=== PATIENT | female | born 1965 | race Caucasian/White ===

== ENCOUNTER 2020-01-13 09:17 | Outpatient (REF) | payer OTHER, SELFPAY ==
--- NOTE | 2020-01-13 08:40 | PAPFT_PTH ---
PATIENT: Jaymie Decker LOC: [facility] U#:[id number] AGE/SX: 54/F ROOM: RE01/13/[address]: Constance Knox NP : 1965 BED: DIS: 01/13/2020 SPEC #: [id number] RECD: 01/13/20 18:28 STATUS: ÁLVAROTania REQ #: [id number] JAMAL: 01/13/20 08:[address]: Constance Knox NP DEPT: [facility] Cytology RECD BY: Judy Lyn ENTERED: 01/13/20 18:28 SP TYPE: PAPFT OT DR: Unknown,Unknown Tissues: 1 - CX/ENDOCX FOR PAP SMEARS Procedures: PAP THIN PREP/UVM Screening HPV DNA PROBE Comments: [id number]
== END 2020-01-13 09:37 ==
LOC: LBN 09:17
PROVIDERS: Visit Provider Nurse Practitioner Women's Health
DX: Z12.4 Encounter for screening for malignant neoplasm of cervix (principal); Z11.51 Encounter for screening for human papillomavirus (HPV)
CPT/HCPCS: 88142; 87624

== ENCOUNTER 2020-01-29 13:10 | Outpatient (REF) | payer OTHER, SELFPAY ==
[2020-01-29 19:32] LABS: Abs Immature Grans 0.02 10^3/uL (0.0-0.06); Absolute Basophil Count 0.03 10^3/uL (0.0-0.2); Absolute Eosinophil Count 0.04 10^3/uL (0.0-0.7); Absolute Lymphocyte Count 1.62 10^3/uL (1.2-3.4); Absolute Monocyte Count 0.64 10^3/uL (0.1-0.8); Absolute Neutrophil Count 5.62 10^3/uL (1.2-6.7); Basophils % 0.4; Eosinophils % 0.5; HCT 48.4 % (36.0-46.0); Immature Grans % 0.3; Lymphocytes % 20.3; MCH 32.8 pg (27.0-33.0); MCHC 33.1 % (32.0-36.0); MCV 99.2 fL (80-95); MPV 10.4 fL (8.0-11.0); Neutrophils % 70.5; Nucleated RBC 0 %; Platelet Count 334 10^3/uL (130-400); RBC 4.88 10^6/uL (3.93-5.22); RDW 12.1 % (11.7-14.6); RDW-SD 44.4 fL; WBC 7.97 10^3/uL (4.4-10.8)
[2020-01-29 19:59] LABS: ALT 47 U/L (14-59); AST 38 U/L (15-37); Albumin 3.8 g/dL (3.4-5.0); Alkaline Phosphatase 78 U/L (46-116); Anion Gap 6.2 mmol/L (3-11); BUN 8 mg/dL (7-18); Bilirubin, Total 0.8 mg/dL (0.2-1.0); CO2 29.8 mmol/L (21.0-32.0); CREATININE 0.72 mg/dL (0.55-1.02); Calcium 9.2 mg/dL (8.5-10.1); Calculated LDL 204 mg/dL (<100); Chloride 104 mmol/L (98-107); Cholesterol 271 mg/dL (<200); Glucose 118 mg/dL (74-106); HDL Cholesterol 41 mg/dL (40-60); Potassium 4.3 mmol/L (3.5-5.1); Sodium 140 mmol/L (136-145); TSH (W/Ref FT4) 1.79 uIU/mL (0.36-3.74); Total Protein 7.3 g/dL (6.4-8.2); Triglyceride 132 mg/dL (<150)
== END 2020-01-29 13:30 ==
LOC: NCHCN 13:10
PROVIDERS: PCP Nurse Practitioner; Visit Provider Nurse Practitioner
DX: R63.4 Abnormal weight loss (principal); R11.0 Nausea; K59.09 Other constipation; Z13.89 Encounter for screening for other disorder
CPT/HCPCS: 80053; 80061; 84443; 85025

== ENCOUNTER 2020-01-30 00:34 | Outpatient (CLI) | payer OTHER, SELFPAY ==
--- NOTE | 2020-01-30 13:02 | DI.MAMMO_ITS ---
EXAM: MG MAMMO SCREENING CLINICAL HISTORY: screening TECHNIQUE: Bilateral full field digital CC and MLO mammographic images were obtained with 3D tomosyn thesis and utilizing computer aided detection (CAD). COMPARISON: None. FINDINGS: Masses/Architectural Distortion: None seen. Microcalcifications: No suspicious pleomorphic-type are seen. Skin Thickening/Nipple Retraction: None. IMPRESSION: 1. No significant interval change with no specific features of malignancy noted. 2. Unless there is more urgent need, screening mammography is recommended, as per [employer] guidelines. BI-RADS Category 1 - Negative Breast Density - Category C - Heterogeneously dense The mammogram demonstrates the patient's breast tissue is dense. Dense breast tissue is very common a nd is not abnormal but dense breast tissue can make it harder to find cancer on a mammogram. Also, de nse breast tissue may increase their breast cancer risk. This information about the result of the [facility] mogram report was provided to the patient to raise their awareness. Use this report when you speak wi th the patient about their risks for breast cancer, which includes their family history. At that time , you may recommend for more screening tests (Ultrasound or MRI) as they might be useful based on the ir risk. A negative radiographic report should not delay biopsy if a dominant or clinically suspicious mass is present. Up to ten percent of cancers are not identified on mammography. A negative report may reinforce clinical impression. Adenosis and dense breasts may obscure an underlying neoplasm. False positive reports average 6 to 10%. Patient will receive a letter notifying them of these results.
== END 2020-01-30 00:54 ==
PROVIDERS: PCP Nurse Practitioner; Visit Provider Nurse Practitioner Women's Health
DX: Z12.31 Encounter for screening mammogram for malignant neoplasm of breast (principal)
CPT/HCPCS: 77063; 77067

== ENCOUNTER 2020-02-07 09:48 | Emergency (ER) | payer OTHER, SELFPAY ==
[2020-02-07 09:57] VITALS: BP 109/83; PULSE 89; RESP 14; TEMP 36.5; O2SAT 99
[2020-02-07] MEDS: Ondansetron 4 MG/2 ML VIAL IVP (10:13)
[2020-02-07] MEDS: Normal Saline 1,000 ML 1000 ML IV (10:14)
[2020-02-07 10:24] LABS: Abs Immature Grans 0.01 10^3/uL (0.0-0.06); Absolute Basophil Count 0.03 10^3/uL (0.0-0.2); Absolute Eosinophil Count 0.04 10^3/uL (0.0-0.7); Absolute Lymphocyte Count 2.12 10^3/uL (1.2-3.4); Absolute Monocyte Count 0.61 10^3/uL (0.1-0.8); Absolute Neutrophil Count 5.92 10^3/uL (1.2-6.7); Basophils % 0.3; Eosinophils % 0.5; HGB 17.3 g/dL (11.2-15.7); Immature Grans % 0.1; Lymphocytes % 24.3; MCH 33.5 pg (27.0-33.0); MCHC 33.9 % (32.0-36.0); MCV 98.6 fL (80-95); MPV 9.7 fL (8.0-11.0); Neutrophils % 67.8; Nucleated RBC 0 %; Platelet Count 274 10^3/uL (130-400); RBC 5.17 10^6/uL (3.93-5.22); RDW 12.2 % (11.7-14.6); WBC 8.73 10^3/uL (4.4-10.8)
--- NOTE | 2020-02-07 10:29 | ED.GENADUL_ITS ---
Discharge Plan Disposition Patient Disposition: HOME Condition: Stable Discharge Details Clinical Impression: Nausea, Difficulty swallowing Primary Care Provider: Yennifer Wang ED Provider: Davion Knox Home Meds and New Rx's Prescriptions: New ondansetron 4 mg tablet,disintegrating 4 mg PO Q8H PRN (Reason: nausea and vomiting) Qty: 30 RF: 0 Continued rosuvastatin 20 mg tablet 20 mg PO HS RF: 0 Discharge Instructions Instructions: Acute Nausea and Vomiting (ED) Additional Instructions: you should receive a call for an appointment with general surgery if you have worsening pain, feel more ill or persistent vomit return to the emergency department Medical Decision Making 55 yo female with hx of hld and has had years of nausea and not able to swallow food fully comes in with continued symptoms. Denies any chest pain and no abdominal pain now, states every so often will get some cramps. Her abdomen is soft and nontender and has no distention and speaking in full sentences. I suspect she could have celiacs vs achalasia, no findings to suggest emergent s urgical process, will give IVF and check for electrolyte abnormalities and monitor. labs show mild hypokalemia otherwise unremarkable and she remains stable. She is seeing GI but can't see them until April and I feel she may benefit from an endoscopy given her chronic symptoms, will refer her to general surgery for evaluation for possible endoscopy as soon as possible. Will d/c home and return precautions given Differential Diagnosis Differential Diagnosis: achalasia, celiac, crohns Lab Data Lab results reviewed: Yes I reviewed the patient's lab results. HPI General Mode of arrival: ambulatory . Date/Time Provider Initiated Documentation: 02/07/20 09:50 . Limitations to Documentation: no limitations . Information obtained by: patient . History of Present Illness 55 year old F presents to the emergency department with the chief complaint of nausea, described as moderate, No relieving factors improve symptom(s), No exacerbating factors reported . Patient did receive the following treatments prior to arrival, none Related Data Home Medications Medication Instructions Recorded Confirmed ondansetron 4 mg PO Q8H PRN #30 tab 02/07/20 rosuvastatin 20 mg PO HS 02/07/20 02/07/20 Previous Rx's Medication Instructions Recorded ondansetron 4 mg PO Q8H PRN #30 tab 02/07/20 Allergies Allergy/AdvReac Type Severity Reaction Status Date / Time No Known Allergies Allergy Verified 02/07/20 10:03 General Stated Complaint: Abd Prob TWIN: 3 Review of Systems All systems reviewed & are unremarkable except as noted in HPI and below Constitutional Constitutional: Denies chills, Denies fever(s) and Denies weakness Cardiovascular Cardiovascular: Denies chest pain and Denies dyspnea Respiratory Respiratory: Denies cough and Denies dyspnea Musculoskeletal Musculoskeletal: Denies joint swelling Neurologic Neurologic: Denies weakness Psychiatric Psychiatric: Denies depression [facility] Medical History (Updated 02/07/20 @ 11:25 by Davion Knox MD) Cervical polyp Postmenopausal Family History Mother Pancreatic cancer Father Bowel cancer Social History Smoking/Tobacco Use Status: Never Smoking risk assessment performed?: Yes Alcohol Intake: current Alcohol Intake frequency: 0-2 drinks per day Drug use: Never Household members: spouse and other Details: 2 sons, one lives in [place] and the other in a [place] Sexually active: Yes Do you think of yourself as: straight/heterosexual Current gender identity: female Do you feel safe at home: Yes Do you feel safe in your relationship?: Yes History History 2 Para 2 Hx # Term Pregnancies Multiple births Hx # Pregnancies Ectopic pregnancies AB induced Hx Number of Living Children 1 AB spontaneous Exam Const General: no acute distress Orientation: alert HENMT Head: normal to inspection Ears: external ears normal General nose exam: external nose normal Mouth: moist mucous membranes Eyes General: appearance normal, both eyes and all related structures Neck Neck: normal visual inspection Resp Effort & Inspection: normal respiratory effort and able to speak in complete sentences Cardio Rate: regular rate GI Palpation: soft and nontender Skin General skin exam: no rashes or lesions noted Neuro General: patient alert and patient oriented x3 Extrem General: normal to inspection Psych Mental Status: mental status grossly normal Course Vital Signs Vital signs: Vital Signs Temperature 36.5 C 02/07/20 09:57 Pulse 89 02/07/20 09:57 Respiratory Rate 14 02/07/20 09:57 Blood Pressure 109/83 02/07/20 09:57 Pulse Oximetry 99 02/07/20 09:57 Temperature 36.5 C 02/07/20 09:57 Temperature Source Skin 02/07/20 09:57 Pulse 89 02/07/20 09:57 Respiratory Rate 14 02/07/20 09:57 Respiratory Effort 02/07/20 10:04 Blood Pressure 109/83 02/07/20 09:57 Pulse Oximetry 99 02/07/20 09:57 Oxygen Delivery Method Room Air 02/07/20 09:57 Oxygen Flow Rate 0 02/07/20 09:57 Pain Level 0 02/07/20 09:57
[2020-02-07 10:41] LABS: ALT 27 U/L (14-59); AST 27 U/L (15-37); Albumin 3.9 g/dL (3.4-5.0); Alkaline Phosphatase 76 U/L (46-116); Anion Gap 11.3 mmol/L (3-11); BUN 12 mg/dL (7-18); Bilirubin, Total 1.2 mg/dL (0.2-1.0); CO2 26.7 mmol/L (21.0-32.0); CREATININE 0.83 mg/dL (0.55-1.02); Calcium 9.5 mg/dL (8.5-10.1); Chloride 101 mmol/L (98-107); Glucose 107 mg/dL (74-106); Lipase 255 U/L (73-393); Magnesium 2.1 mg/dL (1.8-2.4); Potassium 3.3 mmol/L (3.5-5.1); Sodium 139 mmol/L (136-145); Total Protein 8.2 g/dL (6.4-8.2)
--- NOTE | 2020-02-07 11:22 | NUR.NOTE ---
Nursing Note: Referral [facility] follow up, Katerine Fam
== END 2020-02-07 11:33 | disposition home or self-care (01) ==
PROVIDERS: Emergency Provider Emergency Medicine; PCP Nurse Practitioner
DX: R11.0 Nausea (principal); R13.10 Dysphagia, unspecified; E87.6 Hypokalemia
CPT/HCPCS: 36415; 80053; 83690; 96361; 96374; 99284; 83735; 85025; J2405

== ENCOUNTER 2020-02-07 22:39 | Outpatient (REF) | payer OTHER, SELFPAY ==
[2020-02-07 21:58] LABS: Hemoglobin A1C 5.4 % (<5.7)
== END 2020-02-07 22:59 ==
LOC: NCHCN 22:39
PROVIDERS: PCP Nurse Practitioner; Visit Provider Nurse Practitioner
DX: R73.9 Hyperglycemia, unspecified (principal); R11.0 Nausea; R12 Heartburn
CPT/HCPCS: 82784; 83516; 83036

== ENCOUNTER 2020-02-25 02:01 | Outpatient (CLI) | payer OTHER, SELFPAY ==
[2020-02-27 10:50] LABS: COVID-19 RT-PCR Result NEGATIVE (Negative)
== END 2020-02-25 02:21 ==
PROVIDERS: PCP Nurse Practitioner; Visit Provider Surgery
DX: Z11.59 Encounter for screening for other viral diseases (principal); Z01.818 Encounter for other preprocedural examination
CPT/HCPCS: U0003

== ENCOUNTER 2020-02-28 12:17 | Day surgery (SDC) | payer OTHER, SELFPAY ==
[2020-02-28 12:36] VITALS: BP 132/75; PULSE 88; RESP 16; TEMP 36.7; O2SAT 88
[2020-02-28] MEDS: Lactated Ringers 1,000 ML 80 ML IV (13:00)
--- NOTE | 2020-02-28 14:26 | STOM_PTH ---
PATIENT: Jaymie Decker LOC: [facility] U#:[id number] AGE/SX: 55/F ROOM: RE02/28/[address]: Sahara Rothman : 1965 BED: DIS: 02/28/2020 SPEC #: [id number] RECD: 02/28/20 18:47 STATUS: JENNIFER RE #: [id number] JAMAL: 02/28/20 14:[address]: Sahara Rothman DEPT: Surgical Specimen RECD BY: Judy Lyn ENTERED: 02/28/20 18:49 SP TYPE: STOMACH OTHR DR: Yennifer Wang Tissues: 1 - BIOPSY BOWEL 2 - STOMACH BIOPSY 3 - ESOPHAGUS BIOPSY 4 - ESOPHAGUS BIOPSY 5 - ESOPHAGUS BIOPSY 6 - BIOPSY BOWEL 7 - BIOPSY BOWEL Procedures: GROSS AND MICRO LEVEL 4 Comments: [id number]
--- NOTE | 2020-02-28 15:03 | W.PM.DSUDISC ---
Discharge Plan Disposition Patient Disposition: HOME Condition: Good Discharge Details Reason For Visit: egd and colon Attending Provider: Sahara Rothman Primary Care Provider: Yennifer Wang Home Meds and New Rx's Prescriptions: New pantoprazole [Protonix] 40 mg tablet,delayed release (DR/EC) 40 mg PO DAILY Qty: 30 RF: 12 Continued rosuvastatin 20 mg tablet 20 mg PO HS RF: 0 ondansetron 4 mg tablet,disintegrating 4 mg PO Q8H PRN (Reason: nausea and vomiting) Qty: 30 RF: 0 Discontinued bisacodyl [Dulcolax (bisacodyl)] 5 mg tablet,delayed release (DR/EC) 5 mg PO ONCE Qty: 4 RF: 0 polyethylene glycol 3350 17 gram/dose powder 17 g PO ONCE Qty: 238 RF: 0 Discharge Instructions Additional Instructions: Findings: duodentitis/gastritis/esophagitis sm polyp in rectum Follow up: Dr. Rothman in 2-3 wks Continue with lifestyle modifications: no alcohol, tobacco products, Aspirin or NSAID's (ibuprofen, Motrin, Naprosyn, aleve, etc). Try to avoid: soda pop/any carbonated beverages, caffeine (including tea & chocolate), and acidic foods, (tomatoes, citrus, onions, peppermints) spicy or fried/fatty foods. Do not lie down for 30 minutes after eating, and do not eat 2 hours prior to bedtime. Avoid wearing tight fitting clothing/ belts Rx: protonix Please call if you develop: fevers >101.5 Nausea or Vomiting Abdominal pain that is not transient DAY SURGERY UNIT POST COLONOSCOPY INSTRUCTIONS 1. Because there will be medication in your system for the next 24 hours, you may feel a little sleepy. Your coordination will be affected. Therefore: a. Do not drive or operate dangerous equipment for 24 hours. b. Do not drink alcohol beverages for 24 hours (not even beer). c. Plan to go home and rest for the day. 2. Generally there are no restrictions on your activity after a day or so has gone by, but you may feel a bit fatigued for a few days. 3 After you arrive home you may have a light meal and return to a normal diet as you can tolerate it without feeling sick to your stomach. 4. After surgery, you may feel pain or discomfort. This should be only transient, but if it persists please contact your doctor. 5. If there are any questions regarding the findings of your procedure, please feel free to contact your doctor. 6. If you are unable to contact your doctor with a problem, contact the hospital at [phone]. 7. Continue all your regular medications unless directed otherwise. I understand the above instructions and have no questions. Signature of Patient or Responsible Adult Escort Date/Time Name of Responsible Adult Escort Signature of Nurse Date/Time Activity:: No lifting over 20 pounds or strenuous activity x24 hours Diet:: Small light meals x24 hours Discharge Orders Discharge Orders: Discharge Order (Routine); Ordered 02/28/20 Ordered By: Sahara Rothman DS: Diagnosis Discharge Diagnosis (1) Gastritis: Status: Acute (2) Duodenitis: Status: Acute (3) Esophagitis: Status: Acute (4) Colon polyp: Status: Acute
--- NOTE | 2020-02-28 15:11 | W.COLOREPORT ---
Date of service: 02/28/20 Time of Service: 15:11 Colonoscopy Report Date of procedure: 02/28/20 Pre-op diagnosis general: CRC screen/ weight loss Post-op diagnosis procedure note: other (polyp) Surgeon: Sahara Rothman Anesthesia proc note operative: GETA Estimated blood loss (mL): 1 Pathology: other Complications: None Disposition: same day Prep: Miralax/Dulcolax Retraction Time: 12 mins Procedure Description: After informed consent was obtained the patient was taken to the procedure room and placed in a left decubitous position. Monitors were applied and a time out was done. The patients name, date of , procedure, allergies to medications and metal in their body was reviewed. The patient was then sedated. Once sedated and comfortable a rectal exam was done. External exam was normal. Internal exam revealed a normal sphincter tone and no palpable masses. The scope was then introduced and retrofelexed. No internal hemorrhoids were identified. The scope was then advanced to the cecum w/out difficulty. The TI and appendiceal orifice were identified. The prep was good. The scope was then slowly retracted over 12 minutes back into the rectum. Polyps were removed at less than 5 mm flat polyp was removed in the rectum with a cold biting forcep. All specimens were retrieved and no bleeding was noted. There are no AVMs or diverticula apparent. Mucosa is healthy.. The scope was removed and the patient was woken up and taken back to Same day surgery in stable condition. The patient tolerated the procedure well and there were no immediate complications. Follow up: The patient should follow up in 7-10 years unless they develop changes in bowel habits or other new gastrointestinal complaints.
--- NOTE | 2020-02-28 15:11 | W.PM.ENDDOP ---
Date of service: 02/28/20 Time of Service: 15:11 Endoscopy Report DATE OF PROCEDURE: 02/28/20 PRE-OP DIAGNOSIS: dysphagia POST-OP DIAGNOSIS: other SURGEON: Sahara Rothman ANESTHESIA: GETA ESTIMATED BLOOD LOSS: 1 PATHOLOGY: other COMPLICATIONS: None DISPOSITION: same day PROCEDURE DESCRIPTION: After informed consent was obtained the patient was take to the procedure room and placed in a supine position. Monitors were applied and a time out was done. The patients name, date of , procedure type, allergies to medications and metal in their body was reviewed. A bite block was placed and the patient was sedated. Once sedated and comfortable the gastroscope was advanced through the oropharynx which was grossly normal into the esophagus. The proximal and mid-esophagus were nl. In the distal esophagus there was mild esophagitis and very small sliding type hiatal hernia. No esophageal varices/diverticula/ulcer/stricture. The scope was advanced into the stomach and through the pylorus into the 3rd portion of the duodenum. The duodenum was noted to be mild duodenitis. Biopsies were done for sprue, and the first part of the jejunum.. All specimens are retrieved and no bleeding is noted. The scope was retracted back into the stomach and biopsies were done to rule out H. pylori. There were no ulcers. Maybe some mild gastritis. There was a slight amount of bile in the stomach. The scope was retroflexed. The cardia and fundus were noted to be normal. There very small a hiatal hernia noted. The scope was retracted back into the esophagus and biopsies were done of the GE junction to rule out Jacobo's. The Z line was regular. The scope was removed and the patient was woken up and taken back to [facility] in stable condition.
[2020-02-28 15:31] VITALS: BP 126/97; PULSE 67; RESP 18; TEMP 36.4; O2SAT 100
== END 2020-02-28 16:19 | disposition home or self-care (01) ==
PROVIDERS: PCP Nurse Practitioner; Visit Provider Surgery
PROC: (CPT 45380; principal; 2020-02-28 12:00)
DX: R13.10 Dysphagia, unspecified (principal); R63.4 Abnormal weight loss; K20.90 Esophagitis, unspecified without bleeding; K44.9 Diaphragmatic hernia without obstruction or gangrene; K29.80 Duodenitis without bleeding; Z12.11 Encounter for screening for malignant neoplasm of colon; Z80.0 Family history of malignant neoplasm of digestive organs; K31.89 Other diseases of stomach and duodenum; K62.1 Rectal polyp
CPT/HCPCS: 45380; 43239; 88305; J2001; J2704

== ENCOUNTER 2020-03-24 01:00 | Outpatient (CLI) | payer OTHER, SELFPAY ==
--- NOTE | 2020-03-24 07:00 | DI.US_ITS ---
EXAM: US ABDOMEN CLINICAL HISTORY: POSTPRANDIAL RUQ pain/ back pain/family Hx,R10.11 TECHNIQUE: Ultrasound abdomen performed using standard protocol. COMPARISON: No exams were available for comparison FINDINGS: LIVER: Normal size. Mildly increased echogenicity. No focal liver lesions are seen.. GALLBLADDER: No evidence of cholelithiasis. No evidence of wall thickening. No pericholecystic fluid identified. HOOD'S SIGN: Negative. BILIARY SYSTEM: No intrahepatic or extrahepatic biliary ductal dilation. KIDNEYS: Kidneys are symmetric in size. No evidence of renal calculi. No evidence of hydronephrosis. There is a cyst at the upper pole of the left kidney which contains a septation and peripheral calcif ication. No suspicious solid components are seen. PANCREAS: Normal where visualized. SPLEEN: Not enlarged. ABDOMINAL AORTA AND IVC: Visualized portions normal caliber. ASCITES: None seen. IMPRESSION: Mild fatty infiltration of the liver. Normal appearing gallbladder. Complex cyst at the superior pole of the left kidney measuring 3.[address] could be considered for fu rther evaluation. DATA REPOSITORY:
== END 2020-03-24 01:20 ==
PROVIDERS: PCP Nurse Practitioner; Visit Provider Surgery
DX: K76.0 Fatty (change of) liver, not elsewhere classified (principal); N28.1 Cyst of kidney, acquired; R10.11 Right upper quadrant pain
CPT/HCPCS: 76700

== ENCOUNTER 2020-04-15 02:53 | Outpatient (CLI) | payer OTHER, SELFPAY ==
--- NOTE | 2020-04-15 08:09 | DI.CT_ITS ---
EXAM: CT ABDOMEN WO/W CLINICAL HISTORY: COMPLEX RENAL CYST,ABD PAIN,R10.9,N28.1,RT FLANK PAIN TECHNIQUE: Imaging Protocol: Axial computed tomography images with coronal and sagittal reformatted images were created and reviewed CONTRAST MATERIAL: Intravenous: Omnipaque 350 Contrast volume:91 mL Oral: Yes COMPARISON: US US ABDOMEN from 03/24/2020 FINDINGS: ABDOMEN: Lung Bases: Normal where visualized. Liver: Normal density. There are several tiny hypodense lesions in the liver. They are too small for further characterization but likely reflect small cysts. Portal, Superior Mesenteric, and Splenic Veins: Unremarkable. Gallbladder and Biliary Tract: No radiodense calculus or dilation. Pancreas: Normal density, no abnormal calcifications or inflammatory process. Spleen: Normal. Adrenals: No masses seen. Kidneys: Normal size, contour and axis. There is a 3 mm nonobstructing stone in the midpole of the le ft kidney. There is a cystic lesion in the superior pole of the left kidney which measures 3.6 cm tr ansverse by 3.6 cm AP x 3 point cm craniocaudad. The cyst is homogeneously hypodense. There does ap pear to be an immeasurably thin septation internally. (Series 9, image 270). Abdominal Aorta: Abdominal portion non-dilated. Mild atherosclerosis. Bowel: No obstruction or bowel wall thickening. Appendix is unremarkable. Peritoneal Cavity: No ascites, collection or mesenteric inflammatory response. Lymph Nodes: Within normal limits. Bones: Degenerative changes. Soft Tissues: Unremarkable. IMPRESSION: 1. 3.6 cm cyst in the superior pole of the left kidney. The findings are consistent with a Bosniak 2 cyst. 2. Left nephrolithiasis. RADIATION DOSE DELIVERED: 881.58mGy.cm Total DLP DATA REPOSITORY: All CT scans at this facility are submitted to the National Radiology Data Registry (NRDR) Dose Index Registry (DIR) with the [employer] (ACR). RADIATION OPTIMIZATION: All CT scans at this facility use at least one of these dose optimization te chniques: automated exposure control; mA and/or kV adjustment per patient size (includes targeted exa ms where dose is matched to clinical indication); or iterative reconstruction.
[2020-04-15] MEDS: Omnipaque 350 MG/ML 50 ML BTL PO (14:24)
[2020-04-15] MEDS: Breeza Beverage 473 ML BTL PO (14:25)
[2020-04-15] MEDS: Omnipaque 350 MG/ML 100 ML BTL IJ (15:17)
[2020-04-15] MEDS: Normal Saline Flush 10 ML SYR IVP (15:17)
[2020-04-15] MEDS: Normal Saline - Diluent 50 ML VIAL IV (15:18)
== END 2020-04-15 03:13 ==
PROVIDERS: PCP Nurse Practitioner; Visit Provider Surgery
DX: N28.1 Cyst of kidney, acquired (principal); N20.0 Calculus of kidney
CPT/HCPCS: 74170; J3490; Q9967

== ENCOUNTER 2020-10-23 12:14 | Outpatient (REF) | payer OTHER, SELFPAY ==
--- NOTE | 2020-10-23 11:00 | CER_PTH ---
PATIENT: Jaymie Decker LOC: [facility] U#:[id number] AGE/SX: 55/F ROOM: RE10/23/[address]: Alie Hassan DO : 1965 BED: DIS: 10/23/2020 SPEC #: [id number] RECD: 10/23/20 12:30 STATUS: JENNIFER REQ #: [id number] JAMAL: 10/23/20 11:[address]: Alie Hassan DEPT: Surgical Specimen RECD BY: Judy Lyn ENTERED: 10/23/20 12:31 SP TYPE: CER OTHR DR: Yennifer Wang Tissues: 1 - CERVICAL BIOPSY Procedures: GROSS AND MICRO LEVEL 4 IMMUNOPEROXIDASE STAIN P16 IPEX Comments: [id number]
== END 2020-10-23 12:15 | disposition home or self-care (01) ==
LOC: LBN 12:14
PROVIDERS: PCP Nurse Practitioner; Visit Provider Obstetrics & Gynecology
DX: N84.1 Polyp of cervix uteri (principal); N87.9 Dysplasia of cervix uteri, unspecified
CPT/HCPCS: 88305; 88342; 88361

== ENCOUNTER 2021-03-01 02:56 | Outpatient (CLI) | payer OTHER, SELFPAY ==
[2021-03-01 10:38] LABS: Source Nasal/Nares
[2021-03-01 14:26] LABS: COVID-19 PCR Negative (Negative)
== END 2021-03-01 02:57 | disposition home or self-care (01) ==
LOC: LBO 02:56
PROVIDERS: PCP Nurse Practitioner; Visit Provider Obstetrics & Gynecology
DX: Z20.822 Contact with and (suspected) exposure to COVID-19 (principal); Z01.818 Encounter for other preprocedural examination
CPT/HCPCS: 87635

== ENCOUNTER 2021-03-01 03:12 | Outpatient (CLI) | payer OTHER, SELFPAY ==
[2021-03-01 09:04] LABS: Abs Immature Grans 0.02 10^3/uL (0.0-0.06); Absolute Basophil Count 0.03 10^3/uL (0.0-0.2); Absolute Eosinophil Count 0.12 10^3/uL (0.0-0.7); Absolute Lymphocyte Count 1.77 10^3/uL (1.2-3.4); Absolute Monocyte Count 0.68 10^3/uL (0.1-0.8); Absolute Neutrophil Count 4.72 10^3/uL (1.2-6.7); Basophils % 0.4; Eosinophils % 1.6; HCT 44.1 % (36.0-46.0); HGB 14.7 g/dL (11.2-15.7); Immature Grans % 0.3; Lymphocytes % 24.1; MCH 32.6 pg (27.0-33.0); MCHC 33.3 % (32.0-36.0); MCV 97.8 fL (80-95); MPV 9.6 fL (8.0-11.0); Monocytes % 9.3; Neutrophils % 64.3; Nucleated RBC 0 %; Platelet Count 267 10^3/uL (130-400); RBC 4.51 10^6/uL (3.93-5.22); RDW 11.9 % (11.7-14.6); RDW-SD 43.4 fL; WBC 7.34 10^3/uL (4.4-10.8)
== END 2021-03-01 03:13 | disposition home or self-care (01) ==
LOC: LBO 03:12
PROVIDERS: PCP Nurse Practitioner; Visit Provider Obstetrics & Gynecology
DX: F41.1 Generalized anxiety disorder (principal); Z01.818 Encounter for other preprocedural examination
CPT/HCPCS: 36415; 86850; 86900; 86901; 85025

== ENCOUNTER 2021-03-03 07:26 | Day surgery (SDC) | payer OTHER, SELFPAY ==
[2021-03-03 07:42] VITALS: BP 114/76; PULSE 76; RESP 18; TEMP 37.1; O2SAT 96
[2021-03-03] MEDS: Lactated Ringers 1,000 ML 125 ML IV (07:48)
--- NOTE | 2021-03-03 08:02 | W.ANESPRE ---
General Info Date of Service Date Performed: 03/03/21 Height: 5 ft 7 in Weight: 66 kg Body Mass Index (BMI): 22.8 Surgical Procedure: Operation Date: 03/03/21 08:40 Proposed Procedures Side Surgeon p Dilation & Curettage with Hysteroscopy and Myosure Alie Hassan DO Meds Allergies and Home Medications Allergies Allergy/AdvReac Type Severity Reaction Status Date / Time No Known Allergies Allergy Verified 03/03/21 07:50 Home Medication Medication Instructions Recorded ondansetron 4 mg PO Q8H PRN #30 tab 02/07/20 rosuvastatin 20 mg PO QAM 02/07/20 pantoprazole [Protonix] 40 mg PO DAILY #30 tab 02/28/20 citalopram 20 mg tablet 20 mg PO DAILY 02/12/21 bisacodyl [Dulcolax (bisacodyl)] PO 03/03/21 Current Visit Medications: Current Medications Generic Name Dose Route Start Last Admin Trade Name Freq PRN Reason Stop Dose Admin Ringer's Solution 1,000 mls @ 125 mls/hr 03/03/21 06:00 03/03/21 07:48 IV 04/01/21 23:59 125 mls/hr INFUSION [place] Administration IV Miscellaneous Supplies 1 each 03/03/21 06:00 Iv Access IV 04/01/21 23:59 DIRECTED [place] Sodium Chloride 0 ml 03/03/21 06:00 Normal Saline Flush 10 Ml Syr IV 04/01/21 23:59 PRN PRN Sodium Chloride 0 ml 03/03/21 06:00 Normal Saline 10 Ml Vial IJ 04/01/21 23:59 DIRECTED PRN Sterile Water 0 ml 03/03/21 06:00 Water,Injection,Sterile 10 Ml Vial IJ 04/01/21 23:59 DIRECTED PRN PFSH Active Problems Active Problems: Problem Status Onset Code Endometrial polyp N84.0 Left ovarian cyst N83.202 Colon polyp, hyperplastic ~02/2020 K63.5 Right flank pain R10.9 Complex renal cyst N28.1 Chronic GERD K21.9 Hiatal hernia K44.9 Postprandial RUQ pain R10.11 Colon polyp K63.5 Esophagitis K20.90 Duodenitis K29.80 Gastritis K29.70 FH: colon cancer Z80.0 Postmenopausal Z78.0 Cervical polyp N84.1 Medical History Medical History Cervical polyp Chronic GERD Colon polyp Complex renal cyst Duodenitis Endometrial polyp Esophagitis Gastritis Hiatal hernia Hypercholesteremia Left ovarian cyst Postmenopausal Postprandial RUQ pain Right flank pain Surgical History Surgical History History of colonoscopy (~02/28/20) History of esophagogastroduodenoscopy (EGD) (~02/28/20) Hx of repair of ear bone Tobacco Smoking/Tobacco Use Status: Never Alcohol Alcohol Intake: current Alcohol intake frequency: a few times a week Substance Use Substance use: Never Substance use type: does not use Prental History History 2 Para 2 Hx # Term Pregnancies Multiple births Hx # Pregnancies Ectopic pregnancies AB induced Hx Number of Living Children 1 AB spontaneous Vital Signs and Lab Results Vital Signs Most Recent Vital Signs in EMR: Most Recent Vital Signs Temp Pulse Resp BP Pulse Ox 37.1 C 76 18 114/76 96 03/03/21 07:42 03/03/21 07:42 03/03/21 07:42 03/03/21 07:42 03/03/21 07:42 Lab Results Blood Type / Crossmatch: Patient ABO/Rh A Positive 03/01/21 08:43 03/01/21 Antibody Screen NEGATIVE 03/01/21 08:43 03/01/21 Complete Blood Count: White Blood Count 7.34 10^3/uL (4.4-10.8) 03/01/21 08:43 03/01/21 Red Blood Count 4.51 10^6/uL (3.93-5.22) 03/01/21 08:43 03/01/21 Hemoglobin 14.7 g/dL (11.2-15.7) 03/01/21 08:43 03/01/21 Hematocrit 44.1 % (36.0-46.0) 03/01/21 08:43 03/01/21 Platelet Count 267 10^3/uL (130-400) 03/01/21 08:43 03/01/21 Complete Metabolic Panel: No Data to Display Liver Function Panel: No Data to Display Coagulation Panel: No Data to Display Cardiac Panel: No Data to Display Arterial Blood Gas: No Data to Display Venous Blood Gas: No Data to Display Pancreas Panel: No Data to Display Thyroid Panel: No Data to Display Infectious Disease: Coronavirus (COVID-19)(PCR) Negative (Negative) 03/01/21 09:30 03/01/21 Coronavirus 2019 Source Nasal/Nares 03/01/21 09:30 03/01/21 Blood Cultures: No Data to Display Toxicology Panel: No Data to Display Anesthesia Assessment and Plan Anesthesia History Personal History: No History of Anesthesia Complications Family History: No Family History of Anesthesia Complications Exercise Tolerance Exercise Tolerance: Metabolic Equivalents>4 Pertinent Negatives Pertinent Negatives: No Symptoms of GERD, No Major Cardiovascular Symptoms or Complaints, No Major Pulmonary Symptoms or Complaints and No History of CVA/TIA Cardiac & Pulmonary Exam Cardiac Exam: Normal S1/S2 Heart Sounds Pulmonary Exam: Clear Bilateral Breath Sounds Implantable Cardiac Device Does patient have a Pacemaker or an ICD?: No Airway Exam Known Difficult Airway: No Mallampati Class: 2 Mouth Opening: Narrow (< 3cm) Thyromental Distance: Greater than 3 cm Neck Range of Motion: Full ROM Neck Circumference: Normal Teeth Condition: Normal Dentition ASA Classification ASA Score: ASA 2 Emergency Case?: No NPO Status NPO Status: NPO Clears >2 hours, Solids >8 hours Anesthesia Plan Resuscitation Status: Full Code Anesthesia Technique: General Anesthesia Airway Planned: Natural Airway Monitors Used: Standard Monitors
[2021-03-03 08:05] VITALS: BMI 22.8
--- NOTE | 2021-03-03 08:50 | ENDO_PTH ---
PATIENT: Jaymie Decker LOC: [facility] U#:[id number] AGE/SX: 56/F ROOM: RE03/03/[address]: Alie Hassan DO : 1965 BED: DIS: 03/03/2021 SPEC #: [id number] RECD: 03/03/21 12:37 STATUS: JENNIFER REQ #: [id number] JAMAL: 03/03/21 08:[address]: Alie Hassan DEPT: Surgical Specimen RECD BY: Judy Lyn ENTERED: 03/03/21 12:38 SP TYPE: Endo OTHR DR: Yennifer Wang Tissues: 1 - ENDOCERVICAL BX/CURRETTE 2 - ENDOMETRIUM BX/CURRETTE 3 - ENDOMETRIUM BX/CURRETTE Procedures: GROSS AND MICRO LEVEL 4 Comments: [id number]
--- NOTE | 2021-03-03 09:02 | W.PM.OP ---
Date of service: 03/03/21 Time of Service: 09:02 Operative Note Operative Note DATE OF PROCEDURE: 03/03/21 PRE-OP DIAGNOSIS: Postmenopausal bleeding, thickened endometrium, suspect polyp POST-OP DIAGNOSIS: same PROCEDURE: Hysteroscopy with dilation and curettage and removal of endometrial polyp via MyoSure SURGEON: Alie Hasasn ANESTHESIA TYPE: General:No Airway Refer to Anesthesia Record ESTIMATED BLOOD LOSS: 10 PATHOLOGY: other (1. Endometrial polyp 2. Endocervical curettage 3. Endometrial curettage) COMPLICATIONS: None Patient was transported to: same day Patient's condition: stable Indications: Postmenopausal bleeding and thickened endometrium, finding consistent with endometrial polyp via ultrasound Findings: Small posterior wall endometrial polyp. Small fundal endometrial polyp. Normal-appearing endometrium. Normal-appearing tubal ostia. Procedure Description: Patient was taken the operating suite with an IV running where she is placed in dorsal supine position and anesthesia administered via monitored anesthesia care. She was then placed in the modified dorsolithotomy position and prepped and draped in the usual sterile fashion in [facility] stirps. Exam under anesthesia revealed a uterus that was midline and mobile. Speculum was inserted and a single-tooth tenaculum used to grasp the anterior lip of the cervix. Cervical os dilated the point that a MyoSure hysteroscope could be passed with ease. With instillation of normal saline the entire endometrial cavity was inspected. There was noted to be an approximately 3 mm posterior uterine polyp, and a small approximately 2 mm fundal endometrial polyp. At this point the MyoSure device was inserted and utilized to transect both polypoid structures which will be sent for pathology. Base of these lesions were hemostatic. MyoSure device was removed as was the hysteroscope. At this point gentle sharp endocervical curettage was performed followed by a gentle sharp endometrial curettage. At this point the procedure was terminated tenaculum removed from the anterior lip of the cervix and puncture sites found to be hemostatic. Speculum was removed and the patient was returned to the dorsal supine position and awoke from anesthesia with ease. She was taken to recovery room in stable condition. Fluids, 800 cc of crystalloid via anesthesia and total fluid deficit of 435 mL of normal saline Pathology: 1. Endometrial polyp 2. Endocervical curettage 3. Endometrial curettage. Complications: None apparent
--- NOTE | 2021-03-03 09:11 | W.ANESPOSTOP ---
Postoperative Evaluation Date, Time and Location Date Performed: 03/03/21 Time Performed: 09:12 Patient Location: Day Surgery Unit Vital Signs Most Recent Imported Vital Signs: Most Recent Vital Signs Temp Pulse Resp BP Pulse Ox 37.1 C 76 18 114/76 96 03/03/21 07:42 03/03/21 07:42 03/03/21 07:42 03/03/21 07:42 03/03/21 07:42 Most Recent Manually Entered Vital Signs: Adult Blood Pressure: 114/86 Heart Rate: 89 Respirations: 20 Oxygen Saturation (%): 98 Temperature (C): 36.6 C Pain Score (0-10 Scale): 0 Pain Score Most Recent Pain Score: Most Recent Pain Score Pain Level 0 03/03/21 07:42 Assessment Mental Status: Awake (Alert & Oriented to Patient Baseline) Airway and Respiratory Function: Patent airway with normal (patient baseline) respiratory exam Cardiovascular Function: Hemodynamically Stable Hydration Status: Adequately Hydrated Nausea & Vomiting: No Nausea or Vomiting Pain: Pt. Denies Any Pain Peripheral Nerve Block: Patient did not receive a nerve block
[2021-03-03 09:13] VITALS: BP 114/86; PULSE 89; RESP 20; TEMPC 36.6; O2SAT 98
[2021-03-03 09:45] VITALS: BP 129/82; PULSE 67; RESP 16; TEMP 37; O2SAT 96
== END 2021-03-03 10:07 | disposition home or self-care (01) ==
PROVIDERS: PCP Nurse Practitioner; Visit Provider Obstetrics & Gynecology
PROC: 0UDB8ZZ Extraction of Endometrium, Via Natural or Artificial Opening Endoscopic (ICD-10-PCS; CPT 58558; principal; 2021-03-03 08:30)
DX: N84.0 Polyp of corpus uteri (principal); E78.00 Pure hypercholesterolemia, unspecified; K21.9 Gastro-esophageal reflux disease without esophagitis
CPT/HCPCS: 58558; 88305; J1100; J1885; J2001; J2405

== ENCOUNTER → 2021-12-01 02:32 | Outpatient (CLI) | payer OTHER, SELFPAY ==
--- NOTE | 2021-12-01 15:05 | DI.MAMMO_ITS ---
Exam(s) MAMMO SCREENING EXAM: MAMMO SCREENING CLINICAL HISTORY: screening TECHNIQUE: Bilateral full field digital CC and MLO mammographic images were obtained with 3D tomosyn thesis and utilizing computer aided detection (CAD). COMPARISON: Available for comparison. FINDINGS: Masses/Architectural Distortion: None seen. Microcalcifications: No suspicious pleomorphic-type are seen. Skin Thickening/Nipple Retraction: None. IMPRESSION: 1. No significant interval change with no specific features of malignancy noted. 2. Unless there is more urgent need, screening mammography is recommended, as per [employer] guidelines. BI-RADS Category 1 - Negative Breast Density - Category C - Heterogeneously dense Breast density category C or D implies that the patient has dense breast tissue. Dense breast tissue is very common and is not abnormal but dense breast tissue can make it harder to find cancer on a ma mmogram. Also, dense breast tissue may increase their breast cancer risk. This information about the result of the mammogram report was provided to the patient to raise their awareness. Use this report when you speak with the patient about their risks for breast cancer, which includes their family hist ory. At that time, you may recommend for more screening tests (Ultrasound or MRI) as they might be us eful based on their risk. A negative radiographic report should not delay biopsy if a dominant or clinically suspicious mass is present. Up to ten percent of cancers are not identified on mammography. A negative report may reinforce clinical impression. Adenosis and dense breasts may obscure an underlying neoplasm. False positive reports average 6 to 10%. Patient will receive a letter notifying them of these results.
== END ==
PROVIDERS: PCP Nurse Practitioner; Visit Provider Obstetrics & Gynecology
DX: Z12.31 Encounter for screening mammogram for malignant neoplasm of breast (principal)
CPT/HCPCS: 77063; 77067

== ENCOUNTER 2021-12-08 18:04 | Outpatient (REF) | payer OTHER, SELFPAY | END 2021-12-08 18:05 | disposition home or self-care (01) | LOC: LBN 18:04 | PROVIDERS: PCP Nurse Practitioner; Visit Provider Obstetrics & Gynecology | DX: R35.0 Frequency of micturition (principal) | CPT/HCPCS: 87086 ==

== ENCOUNTER 2022-01-05 15:26 | Outpatient (REF) | payer OTHER, SELFPAY ==
[2022-01-05 20:01] LABS: ALT 32 U/L (14-59); AST 33 U/L (15-37); Albumin 4.4 g/dL (3.4-5.0); Alkaline Phosphatase 83 U/L (46-116); Anion Gap 13.1 mmol/L (3-11); BUN 14 mg/dL (7-18); Bilirubin, Total 0.4 mg/dL (0.2-1.0); CO2 25.9 mmol/L (21.0-32.0); CREATININE 0.6 mg/dL (0.55-1.02); Calcium 9.1 mg/dL (8.5-10.1); Calculated LDL 91 mg/dL (<100); Chloride 103 mmol/L (98-107); Cholesterol 214 mg/dL (<200); Estimated GFR 103.98 (mL/min/1.73m2); Glucose 99 mg/dL (74-106); HDL Cholesterol 91 mg/dL (40-60); Magnesium 1.9 mg/dL (1.8-2.4); Potassium 3.8 mmol/L (3.5-5.1); Sodium 142 mmol/L (136-145); TSH (W/Ref FT4) 2.56 uIU/mL (0.36-3.74); Total Protein 7.9 g/dL (6.4-8.2); Triglyceride 162 mg/dL (<150)
== END 2022-01-05 15:27 | disposition home or self-care (01) ==
LOC: NCHCN 15:26
PROVIDERS: PCP Nurse Practitioner Family; Visit Provider Nurse Practitioner Family
DX: R25.2 Cramp and spasm (principal); E78.5 Hyperlipidemia, unspecified; N95.1 Menopausal and female climacteric states
CPT/HCPCS: 80053; 80061; 83735; 84443

== ENCOUNTER 2022-05-23 12:56 | Emergency (ER) | payer OTHER, SELFPAY ==
[2022-05-23 13:01] VITALS: BP 100/71; PULSE 103; TEMP 36.5; O2SAT 96
--- NOTE | 2022-05-23 13:47 | NUR.NOTE ---
Nursing Note: Patient did not want to wait to be seen
== END 2022-05-23 13:32 | disposition left against medical advice (07) ==
PROVIDERS: PCP Nurse Practitioner Family
DX: Z53.21 Procedure and treatment not carried out due to patient leaving prior to being seen by health care provider (principal)

== ENCOUNTER 2022-06-23 16:43 | Outpatient (REF) | payer OTHER, SELFPAY ==
[2022-06-24 19:59] LABS: Rheumatoid Factor <8.6 IU/mL (<12.0)
[2022-06-27 14:01] LABS: ANA Interpretation Negative (Negative)
== END 2022-06-23 16:44 | disposition home or self-care (01) ==
LOC: NCHCN 16:43
PROVIDERS: PCP Nurse Practitioner Family; Visit Provider Nurse Practitioner Family
DX: M25.541 Pain in joints of right hand (principal); M25.542 Pain in joints of left hand; M25.561 Pain in right knee
CPT/HCPCS: 86038; 86431

== ENCOUNTER 2022-06-27 01:17 | Outpatient (CLI) | payer OTHER, SELFPAY ==
--- NOTE | 2022-06-27 | DI.RAD_ITS ---
Exam(s) XR KNEE RT 3V AP,LAT,FELICE EXAM: XR KNEE RT 3V AP,LAT,FELICE CLINICAL HISTORY: RT KNEE PAIN,M25.561. TECHNIQUE: 2D digital imaging was performed. COMPARISON: No exams were available for comparison FINDINGS: 3 views No evidence of fracture or obvious joint effusion. Bone density normal. No degenerative changes. N o osteochondral defects. No osseous lesions. Bone density normal. IMPRESSION: No significant osseous findings in the right knee. No obvious joint effusion. DATA REPOSITORY: RADIATION DOSE DELIVERED:
== END 2022-06-27 01:37 ==
PROVIDERS: PCP Nurse Practitioner Family; Visit Provider Nurse Practitioner Family
DX: M25.561 Pain in right knee (principal)
CPT/HCPCS: 73562

== ENCOUNTER → 2022-12-29 15:36 | Outpatient (CLI) | payer OTHER, SELFPAY ==
--- NOTE | 2022-12-29 | DI.RAD_ITS ---
Exam(s) XR HIP PELVIS ADULT BL EXAM: XR HIP PELVIS ADULT BL CLINICAL HISTORY: LT RT HIP JOINT PAIN---M25.552 M25.551. TECHNIQUE: 2D digital imaging was performed. COMPARISON: CR RT HIP COMPLETE AP PELVIS from 09/25/2015 FINDINGS: 3 views There is no evidence of pelvic nor hip fracture. No hip joint space narrowing on either side. Bone density normal. No osseous lesions. Sacroiliac joints appear unremarkable. IMPRESSION: No significant findings nor significant change compared to 2016. DATA REPOSITORY: RADIATION DOSE DELIVERED:
== END ==
PROVIDERS: PCP Nurse Practitioner Family; Visit Provider Nurse Practitioner Family
DX: M25.552 Pain in left hip (principal); M25.551 Pain in right hip
CPT/HCPCS: 73521

== ENCOUNTER 2023-02-21 11:06 | Outpatient (REF) | payer OTHER, SELFPAY ==
[2023-02-21 14:34] LABS: Abs Immature Grans 0.01 10^3/uL (0.0-0.06); Absolute Basophil Count 0.06 10^3/uL (0.0-0.2); Absolute Eosinophil Count 0.08 10^3/uL (0.0-0.7); Absolute Lymphocyte Count 1.88 10^3/uL (1.2-3.4); Absolute Neutrophil Count 3.55 10^3/uL (1.2-6.7); Basophils % 0.9; Eosinophils % 1.3; HCT 45.8 % (36.0-46.0); HGB 15.4 g/dL (11.2-15.7); Immature Grans % 0.2; Lymphocytes % 29.5; MCH 31.4 pg (27.0-33.0); MCHC 33.6 % (32.0-36.0); MCV 93 fL (80-95); MPV 10.6 fL (8.0-11.0); Monocytes % 12.5; Neutrophils % 55.6; Platelet Count 319 10^3/uL (130-400); RBC 4.91 10^6/uL (3.93-5.22); RDW 11.9 % (11.7-14.6); RDW-SD 40.7 fL; WBC 6.38 10^3/uL (4.4-10.8)
[2023-02-21 14:49] LABS: ALT 37 U/L (14-59); AST 28 U/L (15-37); Albumin 4.1 g/dL (3.4-5.0); Alkaline Phosphatase 74 U/L (46-116); Anion Gap 10.9 mmol/L (3-11); BUN 11 mg/dL (7-18); Bilirubin, Total 0.7 mg/dL (0.2-1.0); CO2 30.1 mmol/L (21.0-32.0); CREATININE 0.7 mg/dL (0.55-1.02); Calcium 9.8 mg/dL (8.5-10.1); Chloride 98 mmol/L (98-107); Estimated GFR 98.95 (mL/min/1.73m2); Glucose 110 mg/dL (74-106); Lipase 101 U/L (16-77); Potassium 3.5 mmol/L (3.5-5.1); Sodium 139 mmol/L (136-145); Total Protein 7.6 g/dL (6.4-8.2)
[2023-02-24 07:52] LABS: IgA 371 mg/dL (85-499); Interpretation (See Note); Tissue Transglutaminase IgA 1.2 U/mL (<4.0)
== END 2023-02-21 11:07 | disposition home or self-care (01) ==
LOC: LBN 11:06
PROVIDERS: Visit Provider Nurse Practitioner Family
DX: R11.2 Nausea with vomiting, unspecified (principal)
CPT/HCPCS: 80053; 82784; 83516; 83690; 85025

== ENCOUNTER → 2023-03-09 00:26 | Outpatient (CLI) | payer OTHER, SELFPAY ==
--- NOTE | 2023-03-09 | DI.NM_ITS ---
Exam(s) NM BONE SCAN WHOLE BODY GRP EXAM: NM BONE SCAN WHOLE BODY GRP CLINICAL HISTORY: LESION OF BONE,M89.9,F/U ABNL CT,? METS. TECHNIQUE: Injected Dose: 25 mCi Tc-99m MDP Delayed Images: Out to 4 hours hours. COMPARISON: CR RT HIP COMPLETE AP PELVIS from 09/25/[address] ABDOMEN WO/W from 04/15/2020 CR XR HIP PELVIS ADULT BL from 12/29/[address] ABDOMEN PELVIS W from 02/23/2023 FINDINGS: The exam is limited by patient's inability to completely evacuate the bladder even several attempts. This mostly obscures visualization of the region of the pubic rami. After symmetric axial uptake. Bilateral renal excretion is identified. No focal area of intense suspi cious uptake is seen. No findings to suggest metastatic disease. A smoothly marginated cystic area is noted on prior plain films from 2016. This appears unchanged fr om that time. Findings are consistent with a benign lesion such as bone cyst. IMPRESSION: 1. No evidence of metastatic disease. 2. Lesion in the right superior pubic ramus obscured by bladder activity. The lesion appears unchang ed with plain films back to 2016 likely represents a benign bone lesion such as simple bone cyst. DATA REPOSITORY:
== END ==
PROVIDERS: Visit Provider Nurse Practitioner Family
DX: M85.451 Solitary bone cyst, right pelvis (principal)
CPT/HCPCS: 78306

== ENCOUNTER → 2023-04-06 01:33 | Outpatient (CLI) | payer OTHER, SELFPAY ==
--- NOTE | 2023-04-06 | DI.DEXA_ITS ---
Exam(s) XR DEXA BONE DENSITY W/WO KEVIN EXAM: XR DEXA BONE DENSITY W/WO KEVIN CLINICAL HISTORY: SCREENING FOR OSTEOPOROSIS, Z13.820 TECHNIQUE: COMPARISON: No exams were available for comparison FINDINGS: Lateral Spine Image: Unremarkable. No compression deformities identified. Left hip: Total T-Score: -0.7 Total Z-Score: 0.2 T- and Z-scores: Within normal limits. Lumbar Spine: Total T-Score: -0.5 Total Z-Score: 0.9 T- and Z-scores: Within normal limits. IMPRESSION: No evidence of osteoporosis.
--- NOTE | 2023-04-06 | DI.MAMMO_ITS ---
Exam(s) MAMMO SCREENING EXAM: MAMMO SCREENING CLINICAL HISTORY: SCREENING,Z12.39. TECHNIQUE: Bilateral full field digital CC and MLO mammographic images were obtained with 3D tomosyn thesis and utilizing computer aided detection (CAD). COMPARISON: Prior mammograms were reviewed. FINDINGS: There has been no significant change in the appearance and distribution of the fibroglandular tissue. There are no CAD designations. There are no new right breast findings. In the left breast on the 3D cc view there is an asymmetric density-possible nodule measuring 8 x 6 m m located 8 cm in from the nipple, lateral of center. Spot compression view recommended. There are no malignant-appearing microcalcification groups is region or elsewhere in either breast. There is no significant architectural distortion nor skin thickening-retraction. IMPRESSION: 1. No radiographic evidence of malignancy in the right breast. 2. Asymmetric density-possible left breast nodule measuring 8 x 6 mm, lateral of center. Spot compre ssion CC view and breast ultrasound recommended. BI-RADS Category 0 - Assessment Incomplete: Need additional imaging evaluation Breast Density - Category C - Heterogeneously dense Breast density Category C or D implies that the patient has dense breast tissue. Dense breast tissue can make it harder to find cancer on a mammogram. Dense breast tissue is also associated with an incr eased risk of breast cancer. This information about the result of the mammogram report was provided to the patient to raise their awareness. Use this report when you speak with the patient about their risks for breast cancer, which includes their family history. At that time, you may recommend additional screening tests (Ultrasoun d or MRI) as these tests may add significant information. A negative radiographic report should not delay biopsy if a dominant or clinically suspicious mass is present. Up to ten percent of cancers are not identified on mammography. A negative report may reinforce clinical impression. Adenosis and dense breasts may obscure an underlying neoplasm. False positive reports average 6 to 10%. Patient will receive a letter notifying them of these results.
== END ==
PROVIDERS: Visit Provider Nurse Practitioner Family
DX: Z12.31 Encounter for screening mammogram for malignant neoplasm of breast (principal); R92.8 Other abnormal and inconclusive findings on diagnostic imaging of breast; Z13.820 Encounter for screening for osteoporosis
CPT/HCPCS: 77063; 77067; 77080

== ENCOUNTER → 2023-04-11 02:09 | Outpatient (CLI) | payer OTHER, SELFPAY ==
--- NOTE | 2023-04-11 | DI.US_ITS ---
Exam(s) MG MAMMO SCREEN CALL BACK UNI US BREAST LT COMPLETE EXAM: MG MAMMO SCREEN CALL BACK UNI-LEFT AND COMPLETE LEFT BREAST ULTRASOUND CLINICAL HISTORY: F/U MAMMO, LT BREAST ASYMMETRIC DENSITY,? NODULE. TECHNIQUE: Unilateral spot mammographic images obtained with 3D tomosynthesisand utilizing computer aided detection (CAD). . Complete LEFT breast Ultrasound was also performed, including all 4 quadrants, the retroareolar regio n, and the ipsilateral axilla. COMPARISON: Prior mammograms were reviewed. This additional imaging was performed due to findings described on the recent screening mammogram of 04/06/2023. FINDINGS: DIAGNOSTIC MAMMOGRAM: Additional mammographic views performed todayrender this area less concerning. COMPLETE LEFT BREAST ULTRASOUND: Ultrasound performed today reveals no evidence of solid or significant cystic lesions in all 4 quadra nts.. Scanning of the ipsilateral axilla reveals no significant adenopathy. IMPRESSION: 1. No radiographic evidence of malignancy. 2. No ultrasound evidence of malignancy. Negative complete left breast ultrasound Appropriate follow-up is to keep this patient on her yearly mammogram schedule, with earlier imaging if a self detected breast change is noted.. The patient was informed of these findings and recommendations by myself prior to leaving the departm ent today. BI-RADS Category 2 - Benign Findings Breast Density - Category C - Heterogeneously dense Breast density Category C or D implies that the patient has dense breast tissue. Dense breast tissue can make it harder to find cancer on a mammogram. Dense breast tissue is also associated with an incr eased risk of breast cancer. This information about the result of the mammogram report was provided to the patient to raise their awareness. Use this report when you speak with the patient about their risks for breast cancer, which includes their family history. At that time, you may recommend additional screening tests (Ultrasoun d or MRI) as these tests may add significant information. A negative radiographic report should not delay biopsy if a dominant or clinically suspicious mass is present. Up to ten percent of cancers are not identified on mammography. A negative report may reinforce clinical impression. Adenosis and dense breasts may obscure an underlying neoplasm. False positive reports average 6 to 10%. Patient will receive a letter notifying them of these results.
== END ==
PROVIDERS: Visit Provider Nurse Practitioner Family
DX: Z12.31 Encounter for screening mammogram for malignant neoplasm of breast (principal); R92.8 Other abnormal and inconclusive findings on diagnostic imaging of breast
CPT/HCPCS: 76642; 77063; 77067

== ENCOUNTER 2024-01-31 16:38 | Outpatient (REF) | payer OTHER, SELFPAY | END 2024-01-31 16:39 | disposition home or self-care (01) | LOC: LBN 16:38 | PROVIDERS: Visit Provider Obstetrics & Gynecology | DX: R35.0 Frequency of micturition (principal); Z12.39 Encounter for other screening for malignant neoplasm of breast; Z01.419 Encounter for gynecological examination (general) (routine) without abnormal findings | CPT/HCPCS: 87077; 87086; 87186 ==

== ENCOUNTER 2024-03-12 14:57 | Outpatient (REF) | payer OTHER, SELFPAY ==
[2024-03-12 20:12] LABS: Abs Immature Grans 0.01 10^3/uL (0.0-0.06); Absolute Basophil Count 0.07 10^3/uL (0.0-0.2); Absolute Eosinophil Count 0.07 10^3/uL (0.0-0.7); Absolute Lymphocyte Count 1.49 10^3/uL (1.2-3.4); Absolute Monocyte Count 0.57 10^3/uL (0.1-0.8); Absolute Neutrophil Count 4.81 10^3/uL (1.2-6.7); HCT 44.3 % (36.0-46.0); HGB 14.4 g/dL (11.2-15.7); Immature Grans % 0.1 %; Lymphocytes % 21.2 %; MCH 32.2 pg (27.0-33.0); MCHC 32.5 % (32.0-36.0); MCV 99 fL (80-95); MPV 9.9 fL (8.0-11.0); Monocytes % 8.1 %; Neutrophils % 68.6 %; Platelet Count 210 10^3/uL (130-400); RBC 4.47 10^6/uL (3.93-5.22); RDW 12.3 % (11.7-14.6); RDW-SD 45.1 fL; WBC 7.02 10^3/uL (4.4-10.8)
[2024-03-12 20:44] LABS: ALT 59 U/L (14-59); AST 78 U/L (15-37); Albumin 4.4 g/dL (3.4-5.0); Alkaline Phosphatase 95 U/L (46-116); Anion Gap 16.3 mmol/L (3-11); BUN 13 mg/dL (7-18); Bilirubin, Total 0.57 mg/dL (0.2-1.0); CO2 22.7 mmol/L (21.0-32.0); CREATININE 0.7 mg/dL (0.55-1.02); Calcium 9.3 mg/dL (8.5-10.1); Chloride 102 mmol/L (98-107); Estimated GFR 98.34 (mL/min/1.73m2); Glucose 137 mg/dL (74-106); Potassium 3.7 mmol/L (3.5-5.1); Sodium 141 mmol/L (136-145); Total Protein 8.3 g/dL (6.4-8.2)
[2024-03-12 20:55] LABS: Calculated LDL 96 mg/dL (<100); Cholesterol 216 mg/dL (<200); HDL Cholesterol 92 mg/dL (40-60); Triglyceride 144 mg/dL (<150)
== END 2024-03-12 14:58 | disposition home or self-care (01) ==
LOC: NCHCN 14:57
PROVIDERS: PCP Nurse Practitioner Family; Visit Provider Nurse Practitioner Family
DX: G47.00 Insomnia, unspecified (principal); E78.5 Hyperlipidemia, unspecified
CPT/HCPCS: 80053; 80061; 85025

== ENCOUNTER 2024-03-12 16:43 | Outpatient (CLI) | payer OTHER, SELFPAY ==
--- NOTE | 2024-03-12 | DI.RAD_ITS ---
Exam(s) XR HIP PELVIS ADULT BL EXAM: XR HIP PELVIS ADULT BL CLINICAL HISTORY: M25.551 Pain in RT Hip, M25.552 Pain in LT Hip. TECHNIQUE: 2D digital imaging was performed. COMPARISON: CR XR DEXA BONE DENSITY W/WO KEVIN from 04/06/2023 FINDINGS: 3 views No evidence of pelvic nor hip fracture. No obvious degenerative changes in the hips. No radiographi c evidence of avascular necrosis. No osseous lesions. Incidentally noted is asymmetric disc space narrowing on the left side at L4-5 level and left-sided o steophytes at this level. IMPRESSION: No acute osseous findings in the pelvis and hips. DATA REPOSITORY: RADIATION DOSE DELIVERED:
== END 2024-03-12 17:03 ==
LOC: DI 16:45
PROVIDERS: PCP Nurse Practitioner Family; Visit Provider Nurse Practitioner Family
DX: M25.552 Pain in left hip (principal); M25.551 Pain in right hip
CPT/HCPCS: 73521

== ENCOUNTER 2024-07-10 16:31 | Emergency (ER) | payer OTHER, SELFPAY ==
[2024-07-10 16:37] VITALS: BP 119/83; PULSE 117; RESP 16; TEMP 37.5; O2SAT 93
--- NOTE | 2024-07-10 18:33 | ED.GENADUL_ITS ---
Discharge Plan Disposition Patient Disposition: Home Condition: Stable Discharge Details Clinical Impression: Low back pain, Sciatica, Urinary retention Primary Care Provider: Amna Cornelius ED Provider: Naty Rodney Home Meds and New Rx's Prescriptions: New lidocaine [Lidoderm] 5 % adhesive patch,medicated 1 patch topical DAILY Qty: 30 0RF Rx Instructions: leave on most painful area for up to 12 hrs cyclobenzaprine 10 mg tablet 10 mg PO TID PRNQty: 10 0RF methylprednisolone [Medrol (Donato)] 4 mg tablets,dose pack See Rx Instructions .ROUTE .COMPLEX Qty: 21 0RF Rx Instructions: for 6 days No Action azelaic acid 15 % gel 1 applic topical BID citalopram 10 mg tablet 20 mg PO DAILY lorazepam 0.5 mg tablet 0.5 mg PO DAILY PRN tramadol 50 mg tablet 100 mg PO QHS PRN trazodone 50 mg tablet 50 mg PO QHS PRN ibuprofen 800 mg tablet 800 mg PO Q8H Qty: 30 0RF rosuvastatin 20 mg tablet 20 mg PO QAM Patient Comments: TAKE ONE TABLET BY MOUTH AT BEDTIME pantoprazole [Protonix] 40 mg tablet,delayed release (DR/EC) 40 mg PO DAILY Qty: 30 12RF Discharge Instructions Instructions: Sciatica (DC) Additional Instructions: You were seen in the emergency department today for evaluation of low back and hip pain, most likely due to your sciatica and muscle spasms. In our department a full physical examination performed, had CT imaging that did not show any signs of fracture or other abnormalities to explain your symptoms. You do have some mild [id number] changes in your very lower back, and we did discuss your case with the [facility] spine team who feels reassured against severe pathology at this time. You had evidence of urinary retention which has been going on for some time, and will require evaluation by urology to discuss next steps in workup and management. For your back pain, I have provided you with a prescription for lidocaine, Flexeril, and a Medrol Dosepak to reduce inflammation. Please use therapeutic dosing of Tylenol (acetaminophen) & Advil (ibuprofen) in an alternating fashion as follows: Take 1000mg of Tylenol every 6 hours without missing doses- that is 4 times per day. Nursing Home in between the Tylenol doses, take 600mg of Advil also on a 6 hour schedule, that is also 4 times per day. With this strategy, you will be taking something for fever/pain as often as every 3 hours. The daily maximum dosing of Tylenol is 4000mg, and the daily maximum dosing of Advil is 2400mg. Please note that some common cold medications & prescription pain medications may contain acetaminophen and you need to read OTC drug labels and factor that in to maximum daily doses. Please follow-up with your primary care provider in the next few days to discuss this visit and any symptoms that change, worsen, or persist. Thank you for allowing us to be part of your care. HPI General Mode of arrival: wheelchair . Date/Time Provider Initiated Documentation: 07/10/24 17:20 . Limitations to Documentation: no limitations . Information obtained by: patient, family and old records reviewed . HPI Narrative: HPI: This is a 59-year-old female patient with a past medical history significant for ovarian cyst, GERD, and history of sciatica with bilateral hip pain for the last several months, presenting for evaluation today of acute worsening of her bilateral hip pain radiating down into her groin. The patient reports that she did not sustain any trauma or injury, but woke up early yesterday with severe worsening of her pain that is preventing her from walking easily, moving, bending over. She has had to sleep on the ground floor so that she does not have to ambulate to the bathroom, has been using Tylenol and ibuprofen as well as occasional tramadol without significant improvement. She denies numbness in her legs or her saddle area, does feel like her legs want to give out under her when she stands up. The patient reports no fever, night sweats, nor history of prior back surgeries. She states that she does feel like her urine stream is slow, and that it takes a long time to fully empty. No urinary or fecal incontinence. Exam: Gen: Awake and alert, appears uncomfortable HEENT: Non-icteric sclera Neck: Supple Lungs: No apparent respiratory distress, normal respiratory effort. CV: Appears well perfused Abdomen: Non-distended, soft MSK: Moves 4 extremities without apparent limitation in ROM. No tenderness to the midline spine, no overlying skin changes. Bilateral buttock pain and pain of the hips, radiating down into the bilateral groin. Worse with flexing at the waist, standing Skin: Visualized skin without rashes, cyanosis. Neuro: Significantly altered gait due to pain, 5 out of 5 strength bilateral lower extremities, preserved sensation. Speaks in full, clear sentences. Psych: Appropriate for situation. MDM: This is a 59-year-old female patient presenting for evaluation of bilateral hip and low back pain. Differential includes but is not limited to sciatica, compression fracture, occult pelvic fracture, nerve root compression, muscular strain/sprain, spasm. Considered cauda equina syndrome, but the patient is reassuringly neuro intact. She has no risk factors for spinal epidural abscess, spinal hematoma, and does not have any red flag symptoms for malignancy/neoplasm. I provided the patient with Tylenol, Toradol, and a lidocaine patch. Will obtain a CT scan of the lumbar spine and pelvis without contrast to evaluate for any abnormalities which might explain the patient's pain. ED Course: I reviewed the CT imaging, the patient has no evidence of fracture, no abnormal alignment, does have evidence of L4/L5 and L5/S1 disc bulging with osteophytes, but no central canal stenosis. Does have bilateral neuroforaminal narrowing at L5/S1. She also incidentally is noted to have a markedly distended urinary bladder, her right pubic rami cyst and ovarian cyst are stable compared to priors. Postvoid residual was obtained, 203 mL, which is concerning for retention. Though the patient's history and exam is less consistent with cauda equina, given this finding I did find it prudent to reach out to [facility] orthospine and discussed the patient's case. They reviewed the imaging, discussed my evaluation and assessment, and feel that cauda equina is unlikely. Additionally, the patient has had no trauma, and her urinary retention has been present for some time and did not coincide with the onset of worsening pain. I did provide the patient with a prescription for Flexeril, lidocaine patches, and a Medrol Dosepak for treatment of her presumed sciatica flare and muscle spasms. I counseled her extensively on return precautions, and provided a referral to urology for her urinary retention. At this time, the patient has had a full medical evaluation and is safe for discharge to home. They are hemodynamically stable, ambulatory, and tolerating PO. They are understanding of the follow-up plan and return precautions. They left our facility without incident. Naty Rodney MD Related Data Home Medications ?Medication ?Instructions ?Recorded ?Confirmed rosuvastatin 20 mg tablet 20 mg PO QAM 02/07/20 05/23/22 pantoprazole 40 mg tablet,delayed 40 mg PO DAILY #30 tabs 02/28/20 05/23/22 release (Protonix) ibuprofen 800 mg tablet 800 mg PO Q8H #30 tabs 03/03/21 05/23/22 azelaic acid 15 % topical gel 1 applic topical BID 03/26/24 citalopram 10 mg tablet 20 mg PO DAILY 03/26/24 lorazepam 0.5 mg tablet 0.5 mg PO DAILY PRN 03/26/24 tramadol 50 mg tablet 100 mg PO QHS PRN 03/26/24 trazodone 50 mg tablet 50 mg PO QHS PRN 03/26/24 cyclobenzaprine 10 mg tablet 10 mg PO TID PRN #10 tabs 07/10/24 lidocaine 5 % topical patch 1 patch topical DAILY #30 ea 07/10/24 (Lidoderm) methylprednisolone 4 mg tablets in See Rx Instructions PO .COMPLEX 07/10/24 a dose pack (Medrol (Donato)) #21 dose pk Previous Rx's ?Medication ?Instructions ?Recorded pantoprazole 40 mg tablet,delayed 40 mg PO DAILY #30 tabs 02/28/20 release (Protonix) ibuprofen 800 mg tablet 800 mg PO Q8H #30 tabs 03/03/21 cyclobenzaprine 10 mg tablet 10 mg PO TID PRN #10 tabs 07/10/24 lidocaine 5 % topical patch 1 patch topical DAILY #30 ea 07/10/24 (Lidoderm) methylprednisolone 4 mg tablets in See Rx Instructions PO .COMPLEX 07/10/24 a dose pack (Medrol (Donato)) #21 dose pk Allergies Allergy/AdvReac Type Severity Reaction Status Date / Time No Known Allergies Allergy Verified 07/10/24 16:44 General Stated Complaint: Orthopedic TWIN: 3 Course Vital Signs Vital signs: Vital Signs Temperature 37.5 C 07/10/24 16:37 Pulse 117 H 07/10/24 16:37 Respiratory Rate 16 07/10/24 16:37 Blood Pressure 119/83 07/10/24 16:37 Pulse Oximetry 93 07/10/24 16:37 Temperature 37.5 C 07/10/24 16:37 Temperature Source Oral 07/10/24 16:37 Pulse 117 H 07/10/24 16:37 Respiratory Rate 16 07/10/24 16:37 Blood Pressure 119/83 07/10/24 16:37 Blood Pressure Position Sitting 07/10/24 16:37 Pulse Oximetry 93 07/10/24 16:37 Oxygen Delivery Method Room Air 07/10/24 16:37 Oxygen Flow Rate 0 07/10/24 16:37 Pain Level 10 07/10/24 16:37 Comment taking ibuprofen and Tylenol rx'd tramadol 07/10/24 16:37 Medical Decision Making Quality:SDOH Health Related Social Needs: No Data to Display PFSH All Active Problems (Updated 07/10/24 @ 20:51 by Naty Rodney MD) Urinary retention (Acute) Sciatica (Acute) Low back pain (Acute) Hearing loss (Acute) Panic disorder (Acute) Anxiety (Chronic) Atrophic vaginitis (Acute) Status post hysteroscopic polypectomy (Acute) Endometrial polyp (Acute) Left ovarian cyst (Acute) Colon polyp, hyperplastic (Acute ~02/2020) Right flank pain (Acute) Complex renal cyst (Acute) Chronic GERD (Acute) Hiatal hernia (Chronic) Postprandial RUQ pain (Acute) Colon polyp (Acute) Esophagitis (Acute) Duodenitis (Acute) Gastritis (Acute) FH: colon cancer (Acute) Postmenopausal (Acute) Cervical polyp (Acute) Medical History Cervical polyp Chronic GERD Colon polyp Complex renal cyst Duodenitis Endometrial polyp Esophagitis Gastritis Hiatal hernia Hypercholesteremia Left ovarian cyst Postmenopausal Postprandial RUQ pain Right flank pain Surgical History History of colonoscopy (~02/28/20) History of esophagogastroduodenoscopy (EGD) (~02/28/20) Hx of repair of ear bone Family History Mother Pancreatic cancer Father Bowel cancer Social History Smoking/Tobacco Use Status: Never Smoking risk assessment performed?: Yes Alcohol Intake: current Alcohol Intake frequency: a few times a week Drug use: Never Substance use type: does not use Household members: spouse and other Details: 2 sons, one lives in [place] and the other in a MVC Housing: house Sexually active: Yes Do you think of yourself as: straight/heterosexual Current gender identity: female Do you feel safe at home: Yes Do you feel safe in your relationship?: Yes History History 2 Para 2 Hx # Term Pregnancies Multiple births Hx # Pregnancies Ectopic pregnancies AB induced Hx Number of Living Children 1 AB spontaneous
[2024-07-10] MEDS: Ketorolac 15 MG/ML VIAL IM (18:42)
[2024-07-10] MEDS: Acetaminophen 500 MG TAB 1000 MG PO (18:43)
[2024-07-10] MEDS: Lidocaine 5% Patch 1 PATCH TP (18:44)
--- NOTE | 2024-07-10 18:53 | DI.CT_ITS ---
Exam(s) CT PELVIC WO CT LUMBAR SPINE WO EXAM: CT LUMBAR SPINE WO CLINICAL HISTORY: atraumatic pain. TECHNIQUE: Imaging Protocol: Axial computed tomography images with coronal and sagittal reformatted images of the lumbar spine and pelvis were created and reviewed. COMPARISON: CT CT ABDOMEN PELVIS W from 02/23/2023 US US RENAL PELVIC TRANSVAGINAL from 02/24/2023 CR XR DEXA BONE DENSITY W/WO KEVIN from 04/06/2023 CR XR HIP PELVIS ADULT BL from 03/12/[address] PELVIC WO from 07/10/2024 FINDINGS: Bones: The last intervertebral disc space is designated the L5/S1 level for the numbering purpose of this examination. The vertebral body heights are well maintained. Alignment is normal. No fracture is seen. There is a stable stable 2.8 centimeter cystic area in the right superior pubic ramus. There are mild degenerative changes of the hips. T12-L1: No disc herniations or bulges are present. L1-2: No disc herniations or bulges are present. L2-3: No disc herniations or bulges are present. L3-4: No disc herniations or bulges are present. L4-5: Slight loss of disc height. Mild disc bulging. Small endplate osteophytes, similar to prior. No central canal stenosis or neural foraminal narrowing. L5-S1: Slight loss of disc height. Endplate osteophytes. Mild concentric disc bulging, similar to prior. Mild bilateral neural foraminal narrowing. No central canal stenosis. The visualized SI joints and sacrum are well maintained. Soft Tissues: The urinary bladder is markedly distended. The paraspinal soft tissues are unremarkabl e. The uterus and right ovary are unremarkable. Simple cyst upper pole left kidney, unchanged. No hyd ronephrosis. There is a 4.8 centimeters simple cyst of the left ovary, unchanged from prior. The appe ndix is normal. IMPRESSION: No acute abnormality in the lumbar spine or pelvis. Over distended urinary bladder. Stable left ovarian cyst which appears simple. Stable cystic area in the right superior pubic ramus. Degenerative disc changes at L4-5 and L5-S1. There is no evidence of focal disc herniation. There is mild bilateral neural foraminal narrowing at L5-S1 secondary to disc osteophytes. RADIATION DOSE DELIVERED: Total DLP DATA REPOSITORY: All CT scans at this facility are submitted to the National Radiology Data Registry (NRDR) Dose Index Registry (DIR) with the [employer] (A[employer]). RADIATION OPTIMIZATION: All CT scans at this facility use at least one of these dose optimization te chniques: automated exposure control; mA and/or kV adjustment per patient size (includes targeted exa ms where dose is matched to clinical indication); or iterative reconstruction.
[2024-07-10] MEDS: Cyclobenzaprine 10 MG TAB PO (21:08)
[2024-07-10 21:58] VITALS: BP 115/67; PULSE 92; RESP 16; O2SAT 95
== END 2024-07-10 21:58 | disposition home or self-care (01) ==
PROVIDERS: Emergency Provider Emergency Medicine; PCP Nurse Practitioner Family
DX: M54.31 Sciatica, right side; M54.50 Low back pain, unspecified; M54.32 Sciatica, left side; R33.9 Retention of urine, unspecified
CPT/HCPCS: 51798; 96374; 99284; 72131; 72192; J1885

== ENCOUNTER 2024-08-26 18:07 | Outpatient (REF) | payer OTHER, SELFPAY | END 2024-08-26 18:08 | disposition home or self-care (01) | LOC: LBN 18:07 | PROVIDERS: PCP Family Medicine; Visit Provider Physician Assistant | DX: N39.0 Urinary tract infection, site not specified (principal) | CPT/HCPCS: 87077; 87086; 87186 ==

== ENCOUNTER 2024-08-26 18:17 | Outpatient (CLI) | payer OTHER, SELFPAY ==
--- NOTE | 2024-08-26 18:15 | RT.EKG_ITS ---
APPROVED REPORT Exam: Resting ECG Reason for Exam: SOB Patient Location: O HR:108 bpm ECG Measurements Heart Rate 108 AXIS PA 142 P 21 QRSd 86 QRS -24 QT 331 T 59 QTc 444 Conclusion Sinus tachycardia...rate> 99 Borderline left axis deviation...QRS axis (-15,-29) Abnormal R-wave progression, late transition...QRS area<0 in V5/V6
== END 2024-08-26 18:18 | disposition home or self-care (01) ==
LOC: DI.CM 18:17
PROVIDERS: PCP Family Medicine; Visit Provider Physician Assistant
DX: R07.89 Other chest pain (principal); R00.0 Tachycardia, unspecified; R06.02 Shortness of breath
CPT/HCPCS: 93010

== ENCOUNTER 2024-08-26 18:46 | Emergency (ER) | payer OTHER, SELFPAY ==
[2024-08-26 18:48] VITALS: BP 140/96; PULSE 113; RESP 18; TEMP 36.8; O2SAT 97
--- NOTE | 2024-08-26 18:59 | ED.GENADUL_ITS ---
Discharge Plan Disposition Patient Disposition: Home Discharge Details Clinical Impression: Dental infection, Tick-borne disease Primary Care Provider: Lenore Payne ED Provider: Marlee Fuentes Home Meds and New Rx's Prescriptions: New amoxicillin-pot clavulanate 875-125 mg tablet 1 tab PO BID Qty: 14 0RF doxycycline hyclate 100 mg capsule 100 mg PO BID Qty: 14 0RF No Action trazodone 50 mg tablet 50 mg PO QHS PRN citalopram 10 mg tablet 10 mg PO DAILY Patient Comments: TAKE TWO TABLETS BY MOUTH EVERY MORNING rosuvastatin 20 mg tablet 20 mg PO QAM Patient Comments: TAKE ONE TABLET BY MOUTH AT BEDTIME pantoprazole [Protonix] 40 mg tablet,delayed release (DR/EC) 40 mg PO DAILY Qty: 30 12RF Discharge Instructions Additional Instructions: Please call [facility] first thing in the morning to schedule follow-up appointment You are being treated for a dental infection with Augmentin. Please take the full course of antibiotics as prescribed. Please note that this may cause diarrhea, so I advised taking probiotics or Activia yogurt to help prevent antibiotic associated diarrhea. Your symptoms are also consistent with a tickborne illness such as Anaplasma; you are being treated presumptively with doxycycline. Please take as prescribed. The results will be available on the portal and by your primary care provider, tick panel should be available within the next 2 to 3 days Stay well hydrated, drinking plenty of fluids throughout the day. You may use Tylenol or ibuprofen as needed for discomfort/headaches. Return to emergency care if you develop new chest pains, severe headaches, dizziness, vision changes, uncontrollable vomiting, severe abdominal pain, blood in your stool, or if you are very worried and need to be rechecked immediately. Referrals: Lenore Payne MD [Primary Care Provider] - Discharge Data Discharge Date/Time-TO BE ENTERED AT DEPARTURE: 08/26/24 22:12 HPI General Date/Time Provider Initiated Documentation: 08/26/24 18:48 . HPI Narrative: Jaymie is a 59-year-old female who presents to the emergency department at the recommendation of urgent care for assessment of generally not feeling well. She is accompanied by her . She reports she has had clamminess, tremors, increased pulse rate, on and off frontal headaches, and intermittent hot flashes starting 2 days ago. No dizziness, vision changes, recent illness symptoms, chest pain, dyspnea, or palpitations. Experienced nausea and decreased appetite since Monday, low fluid intake today. Reports urinary frequency, urgency, large volumes upon waking, and stronger urine odor. History of UTIs. No changes in bowel movements, diarrhea, blood in stool, black/tarry stools, abdominal pain, back pain, joint swelling, or unusual muscle aches. History of arthritis in hips and hands, no recent flare-ups. Known stable kidney cyst. No history of liver, heart, lung, or diabetic issues. Reports dental pain, lost filling, sensitivity to cold, pain on roof of mouth and cheek post tooth extraction in 11/2023 or 12/2023. Spongy sensation on roof of mouth, unusual taste in throat similar to sinus drip. Upcoming dental appointment on 09/25/2024. Tick bite a couple of weeks ago, removed by . Walk-in clinic visit, informed it is likely unrelated to current symptoms. Related Data Home Medications ?Medication ?Instructions ?Recorded ?Confirmed rosuvastatin 20 mg tablet 20 mg PO QAM 02/07/20 08/26/24 pantoprazole 40 mg tablet,delayed 40 mg PO DAILY #30 tabs 02/28/20 08/26/24 release (Protonix) trazodone 50 mg tablet 50 mg PO QHS PRN 03/26/24 08/26/24 amoxicillin 875 mg-potassium 1 tab PO BID #14 tabs 08/26/24 clavulanate 125 mg tablet citalopram 10 mg tablet 10 mg PO DAILY 08/26/24 08/26/24 doxycycline hyclate 100 mg capsule 100 mg PO BID #14 caps 08/26/24 Previous Rx's ?Medication ?Instructions ?Recorded pantoprazole 40 mg tablet,delayed 40 mg PO DAILY #30 tabs 02/28/20 release (Protonix) amoxicillin 875 mg-potassium 1 tab PO BID #14 tabs 08/26/24 clavulanate 125 mg tablet doxycycline hyclate 100 mg capsule 100 mg PO BID #14 caps 08/26/24 Allergies Allergy/AdvReac Type Severity Reaction Status Date / Time No Known Allergies Allergy Verified 08/26/24 18:53 General Stated Complaint: Urinary TWIN: 3 Exam Narrative Exam Narrative: General Appearance: Normal. Patient is alert and oriented, in no acute distress Vital signs: Within normal limits. HEENT: Swelling noted at gumline at left upper premolars, tender to palpation. Clear voice. No trismus. No cervical or submandibular lymphadenopathy Respiratory: Easy work of breathing. Patient is able to speak in complete sentences Gastrointestinal: Abdomen is soft, nondistended, nontender to palpation. Skin: Warm and dry, no rash. Psychiatric: Normal. Course Vital Signs Vital signs: Vital Signs Temperature 36.8 C 08/26/24 18:48 Pulse 113 H 08/26/24 18:48 Respiratory Rate 18 08/26/24 18:48 Blood Pressure 140/96 H 08/26/24 18:48 Pulse Oximetry 97 08/26/24 18:48 Temperature 36.8 C 08/26/24 18:48 Temperature Source Oral 08/26/24 18:48 Pulse 113 H 08/26/24 18:48 Respiratory Rate 18 08/26/24 18:48 Blood Pressure 140/96 H 08/26/24 18:48 Blood Pressure Position Sitting 08/26/24 18:48 Pulse Oximetry 97 08/26/24 18:48 Oxygen Delivery Method Room Air 08/26/24 18:48 Oxygen Flow Rate 0 08/26/24 18:48 Medical Decision Making Initial Assessment: Patient referred from [facility] for elevated blood pressure, discomfort with urination, clamminess, and tremors. Reports dental pain and cold sensitivity due to lost filling, discomfort from previous tooth extraction site. Tick bite a couple of weeks ago, removed by . DDx includes but is not limited to: Viral illness, tickborne illness, BENSON/kidney dysfunction, liver dysfunction, dehydration, electrolyte imbalance, thyroid dysfunction, anxiety ED Course: - Blood work to rule out anemia and kidney issues. - Initiate antibiotic regimen for dental infection. - Order tick panel to exclude Anaplasma, Babesia, and Lyme disease. I independently interpreted the following tests: CBC reassuring, no acute abnormalities. CMP shows newly elevated AST and total bilirubin, as well as increased BUN to creatinine ratio (21: 0.7). TSH slightly elevated with normal T4. UA shows very concentrated urine with protein and ketones and moderate bilirubin. Final Assessment: Patient presented with elevated blood pressure, clamminess, tremors, dental pain, and history of tick bite. Blood work and tick panel ordered. Antibiotics initiated for dental infection. I did review tickborne illness guidelines, empiric treatment is recommended clinical suspicion. Doxycycline initiated. Clinical Impression: -Mild dehydration - Concern for tickborne illness - Dental infection Disposition: - Follow-Up: Upcoming dental appointment on 09/25/2024. Patient treated with Augmentin for dental infection. Recommend close follow-up with PCP for further evaluation/management - Treatment initiated with doxycycline for likely tickborne illness. MDM Components Evaluation: - Number of Differential Diagnoses or Management Options: Anemia, kidney issues, dental infection, Anaplasma, Babesia, Lyme disease. - Amount and Complexity of Data Reviewed: Blood work, tick panel. - Risk of Complication and Morbidity or Mortality: Elevated blood pressure and potential tickborne illnesses. Patient consented to the use of [facility]IT[facility] Quality:SDOH Health Related Social Needs: No Data to Display PFSH All Active Problems (Updated 08/26/24 @ 22:03 by Marlee Craig) Tick-borne disease (Acute) Dental infection (Acute) Osteoarthritis of right hip (Acute) POCUS injection: 08/08/2024 Hearing loss (Acute) Panic disorder (Acute) Anxiety (Chronic) Atrophic vaginitis (Acute) Status post hysteroscopic polypectomy (Acute) Endometrial polyp (Acute) Left ovarian cyst (Acute) Colon polyp, hyperplastic (Acute ~02/2020) Right flank pain (Acute) Complex renal cyst (Acute) Chronic GERD (Acute) Hiatal hernia (Chronic) Postprandial RUQ pain (Acute) Colon polyp (Acute) Esophagitis (Acute) Duodenitis (Acute) Gastritis (Acute) FH: colon cancer (Acute) Postmenopausal (Acute) Cervical polyp (Acute) Medical History Constipation Hypercholesteremia Surgical History History of colonoscopy (~02/28/20) History of esophagogastroduodenoscopy (EGD) (~02/28/20) Hx of repair of ear bone Family History Mother Pancreatic cancer Father Bowel cancer Social History Smoking/Tobacco Use Status: Never Smoking risk assessment performed?: Yes Alcohol Intake: current Alcohol Intake frequency: a few times a week Drug use: Never Substance use type: does not use Household members: spouse and other Details: 2 sons, one lives in [place] and the other in a [place] Housing: house Sexually active: Yes Do you think of yourself as: straight/heterosexual Current gender identity: female Do you feel safe at home: Yes Do you feel safe in your relationship?: Yes History History 2 Para 2 Hx # Term Pregnancies Multiple births Hx # Pregnancies Ectopic pregnancies AB induced Hx Number of Living Children 1 AB spontaneous
[2024-08-26 19:51] LABS: Bilirubin Moderate (Negative); Blood Small (Negative); Clarity Clear (Clear); Glucose Negative (Negative); Ketones 40 mg/dL (Negative); Leukocyte Esterase Negative (Negative); Nitrite Negative (Negative); Specific Gravity >= 1.030 (1.005-1.025); Urobilinogen 0.2 mg/dL (Up to 0.2)
[2024-08-26 20:01] LABS: Bacteria Moderate HPF (Negative); C & S Indicated? No; Casts Negative LPF (Negative); Crystals Negative HPF (Negative); Epithelial Cells Moderate HPF (Negative); Mucus Moderate (Negative); WBC Negative HPF (0-5)
[2024-08-26 20:02] LABS: Abs Immature Grans 0.03 10^3/uL (0.0-0.06); Absolute Basophil Count 0.03 10^3/uL (0.0-0.2); Absolute Eosinophil Count 0.02 10^3/uL (0.0-0.7); Absolute Lymphocyte Count 1.29 10^3/uL (1.2-3.4); Absolute Monocyte Count 0.74 10^3/uL (0.1-0.8); Absolute Neutrophil Count 5.58 10^3/uL (1.2-6.7); Basophils % 0.4 %; Eosinophils % 0.3 %; HCT 44.2 % (36.0-46.0); HGB 15.1 g/dL (11.2-15.7); Immature Grans % 0.4 %; Lymphocytes % 16.8 %; MCHC 34.2 % (32.0-36.0); MCV 97 fL (80-95); MPV 9.5 fL (8.0-11.0); Monocytes % 9.6 %; Neutrophils % 72.5 %; Platelet Count 207 10^3/uL (130-400); RBC 4.58 10^6/uL (3.93-5.22); RDW 12.3 % (11.7-14.6); RDW-SD 43.6 fL; WBC 7.69 10^3/uL (4.4-10.8)
[2024-08-26] MEDS: Normal Saline 1,000 ML 1000 ML IV (20:23)
[2024-08-26 20:25] LABS: ALT 35 U/L (14-59); AST 49 U/L (15-37); Albumin 4.5 g/dL (3.4-5.0); Alkaline Phosphatase 101 U/L (46-116); Anion Gap 12.1 mmol/L (3-11); BUN 21 mg/dL (7-18); Bilirubin, Total 1.1 mg/dL (0.2-1.0); CO2 26.9 mmol/L (21.0-32.0); CREATININE 0.7 mg/dL (0.55-1.02); Calcium 9.6 mg/dL (8.5-10.1); Chloride 100 mmol/L (98-107); Estimated GFR 98.34 (mL/min/1.73m2); Glucose 116 mg/dL (74-106); Potassium 3.4 mmol/L (3.5-5.1); Sodium 139 mmol/L (136-145); Total Protein 8.8 g/dL (6.4-8.2)
[2024-08-26 20:27] LABS: COVID-19 PCR Negative (Negative); Influenza A PCR Negative (Negative); Influenza B PCR Negative (Negative); RSV PCR Negative (Negative)
[2024-08-26 20:28] LABS: Source Nasopharynx
[2024-08-26 20:30] VITALS: BP 160/97; PULSE 92; RESP 16; O2SAT 96
[2024-08-26 20:36] LABS: TSH (W/Ref FT4) 5.97 uIU/mL (0.36-3.74)
[2024-08-26 21:03] LABS: FREE T4 0.83 ng/dL (0.76-1.46)
[2024-08-26] MEDS: Doxycycline Hyclate 100 MG CAP PO (22:05)
[2024-08-26] MEDS: Amoxicillin 875/Clav. 125 TAB PO (22:05)
[2024-08-26] MEDS: LORazepam 0.5 MG TAB PO (22:05)
[2024-08-26 22:12] VITALS: BP 144/108; PULSE 89; TEMP 36.9; O2SAT 98
[2024-08-28 12:30] LABS: Lyme Ab w Rflx to Lyme Confirm Negative (Negative)
[2024-08-30 14:17] LABS: Anaplasma phagocytophilum Negative (Negative); B. miyamotoi PCR Negative (Negative); Babesia divergens/MO-1 Negative (Negative); Babesia duncani Negative (Negative); Babesia microti Negative (Negative); Ehrlichia chaffeensis Negative (Negative); Ehrlichia ewingii/canis Negative (Negative); Ehrlichia muris eauclairensis Negative (Negative)
== END 2024-08-26 22:12 | disposition home or self-care (01) ==
PROVIDERS: Emergency Provider Nurse Practitioner Family; PCP Family Medicine
DX: R68.84 Jaw pain (principal); K04.7 Periapical abscess without sinus; B88.2 Other arthropod infestations
CPT/HCPCS: 99284 ×2; 80053; 87637; 87798; 81003; 81015; 84439; 84443; 85025; 86618

== ENCOUNTER 2024-08-28 00:54 | Outpatient (CLI) | payer OTHER, SELFPAY ==
--- NOTE | 2024-08-28 07:35 | DI.MAMMO_ITS ---
Exam(s) MAMMO SCREENING EXAM: MAMMO SCREENING CLINICAL HISTORY: screening,Z12.39 TECHNIQUE: Bilateral full field digital CC and MLO mammographic images were obtained with 3D tomosyn thesis and utilizing computer aided detection (CAD). COMPARISON: Available for comparison. FINDINGS: Masses/Architectural Distortion: No suspicious masses or areas of architectural distortion are presen t. Microcalcifications: No suspicious pleomorphic-type are seen. Skin Thickening/Nipple Retraction: None. IMPRESSION: 1. No significant interval change with no specific features of malignancy noted. 2. Unless there is more urgent need, screening mammography is recommended, as per [employer] guidelines. BI-RADS Category 1 - Negative Breast Density - Category C - The breast are heterogeneously dense, which may obscure small masses. Breast density Category C or D implies that the patient has dense breast tissue. Dense breast tissue can make it harder to find cancer on a mammogram. Dense breast tissue is also associated with an incr eased risk of breast cancer. This information about the result of the mammogram report was provided to the patient to raise their awareness. Use this report when you speak with the patient about their risks for breast cancer, which includes their family history. At that time, you may recommend additional screening tests (Ultrasoun d or MRI) as these tests may add significant information. A negative radiographic report should not delay biopsy if a dominant or clinically suspicious mass is present. Up to ten percent of cancers are not identified on mammography. A negative report may reinforce clinical impression. Adenosis and dense breasts may obscure an underlying neoplasm. False positive reports average 6 to 10%. Patient will receive a letter notifying them of these results.
== END 2024-08-28 01:14 ==
PROVIDERS: PCP Family Medicine; Visit Provider Obstetrics & Gynecology
DX: Z12.31 Encounter for screening mammogram for malignant neoplasm of breast (principal); R92.333 Mammographic heterogeneous density, bilateral breasts
CPT/HCPCS: 77063; 77067

== ENCOUNTER 2024-09-09 11:27 | Observation (INO) | payer OTHER, SELFPAY ==
[2024-09-09] VITALS (25 sets, daily range): BP systolic 92–138; BP diastolic 44–79; PULSE 73–111; RESP 11–26; TEMP 36.2–36.8; O2SAT 93–99
--- NOTE | 2024-09-09 12:00 | RT.EKG_ITS ---
APPROVED REPORT Exam: Resting ECG Reason for Exam: Nausea and vomiting Patient Location: E HR:97 bpm ECG Measurements Heart Rate 97 AXIS UT 149 P 30 QRSd 85 QRS -23 QT 375 T 41 QTc 476 Conclusion Sinus rhythm...normal P axis, V-rate 60- 99 No Occlusion PR
--- NOTE | 2024-09-09 12:07 | W.ED.GENAD ---
Discharge Plan Discharge Details Chief Complaint: Abd Prob Clinical Impression: BENSON (acute kidney injury), Pancreatitis, Acute hypokalemia Admit Date/Time: 09/09/24 13:28 Admit Provider: Amauri Busch Attending Provider: Amauri Busch Primary Care Provider: Lenore Payne ED Provider: Ernesto Dixon Discharge Data Discharge Date/Time-TO BE ENTERED AT DEPARTURE: 09/09/24 14:15 HPI General Date/Time Provider Initiated Documentation: 09/09/24 11:54. HPI Narrative: MDM This is an overall well-appearing mildly tachycardic and and initially hypotensive 59-year-old normothermic female with nausea and vomiting for which she will received IV fluids and assessment of labs. No specific right lower quadrant tenderness to suggest appendicitis. No right upper quadrant tenderness to suggest acute cholecystitis will obtain lipase to assess for pancreatitis though patient is not an alcoholic nor she morbidly obese. No recent travel to suggest atypical infection. Patient is not immunocompromised so my suspicion is low for opportunistic infection. Given patient's sex will obtain troponin and ECG to assess for myocardial ischemia. Patient does have dry mucous membranes so we will provide D5 NS bolus. I suspect patient's headache dehydration rather than CVA as she is neurologic intact so I do not feel that she requires a CT scan of her head. 12:57 PM Labs notable for hypokalemia, BENSON, anion gap. Mild hyperglycemia but normal bicarbonate??not consistent with DKA. Mildly elevated LFTs. Will provide IV potassium following D5 NS. QTc within normal notes on ECG. Lipase elevated greater than 3 times upper limit of normal consistent with pancreatitis. An BENSON will defer CT scan at this point. Patient is within normal limits and a reassuring delta. Met with the patient. She was having no ongoing vomiting. Her hypotension improved with IV fluids using D5. I was in touch with Dr. Busch who graciously agreed to accept the patient for hospitalization. Patient did urinate this morning so I did not feel that her BENSON represented an anuric renal failure. I do not feel that her dizziness represents a CVA she is neurologically intact so I did not feel the patient requires a CT scan of her head nor would she be a candidate for lytics. No neck pain to suggest increased risk for cervical arterial dissection. No generator exposure carbon monoxide toxicity. HPI This is a patient with a history of Lyme disease presenting with nausea, vomiting, diarrhea, headache, and elevated blood pressure. The patient began experiencing nausea and vomiting on the night of 09/05/2024, which has persisted until today. Despite attempts to hydrate with water, she was unable to retain it and resorted to small sips yesterday. She has been unable to consume any food or drink without regurgitation. She attempted to eat pasta last night but vomited it up. She reports no recent exposure to sick individuals or changes in her diet. She has no history of abdominal surgeries nor kidney stones. She reports no abdominal pain but notes tenderness upon palpation in the middle of her abdomen. She does not consume alcohol daily. Concurrently, the patient is experiencing diarrhea. She was previously on antibiotics for a tooth infection and Lyme disease, which caused frequent liquid bowel movements. Her condition improved slightly before the onset of her current symptoms. The patient reported a blood pressure reading of 158/110 on 09/08/2024, accompanied by palpitations, even at rest. She experienced transient chest pain and shoulder discomfort, followed by dizziness and weakness. She has been experiencing headaches since before 09/05/2024, which have now localized to the back of her head and occasionally move to different spots. She attempted to alleviate the pain with ibuprofen but found it difficult to swallow. She reports no recent exposure to generators or chiropractic manipulation of her neck. The patient has a stable kidney cyst that has not changed since last year. Exam General: Well-appearing in no acute distress speaking in complete sentences. Head: Normocephalic, atraumatic. Eye: Extraocular eye movements intact. No conjunctival injection. No scleral icterus. Ear, nose, mouth, throat: Dry mucous membranes. Normal voice, handling secretions normally. Neck: Trachea midline. Cardiovascular: Well-perfused distal extremities. Rapid regular rate. Respiratory: Nonlabored respiration. Clear lungs bilaterally. Gastrointestinal: Nondistended abdomen. Soft. Nontender. No rebound. No guarding. Musculoskeletal: No edema. Moving all 4 extremities spontaneously. Skin: Normal for age and race, grossly normal temperature and turgor. No acute rash. Neurologic: Alert and appropriate, no apparent acute deficits. Cranial nerves II through XII intact grossly. Psychiatric: Mood and manner are appropriate. Grooming and personal hygiene are appropriate. Related Data Home Medications ?Medication ?Instructions ?Recorded ?Confirmed rosuvastatin 20 mg tablet 20 mg PO QA 02/07/20 09/09/24 pantoprazole 40 mg tablet,delayed 40 mg PO DAILY #30 tabs 02/28/20 09/09/24 release (Protonix) trazodone 50 mg tablet 50 mg PO QHS PRN 03/26/24 09/09/24 citalopram 10 mg tablet 10 mg PO DAILY 08/26/24 09/09/24 lorazepam 0.5 mg tablet 0.5 mg PO BID PRN 09/09/24 09/09/24 tramadol 50 mg tablet 100 mg PO QHS PRN 09/09/24 09/09/24 Previous Rx's ?Medication ?Instructions ?Recorded pantoprazole 40 mg tablet,delayed 40 mg PO DAILY #30 tabs 02/28/20 release (Protonix) Allergies Allergy/AdvReac Type Severity Reaction Status Date / Time No Known Allergies Allergy Verified 09/09/24 11:37 General Stated Complaint: Abd Prob TWIN: 3 Course Vital Signs Vital signs: Vital Signs Temperature 36.8 C 09/09/24 11:29 Pulse 108 H 09/09/24 11:29 Respiratory Rate 20 09/09/24 11:29 Blood Pressure 92/64 L 09/09/24 11:29 Pulse Oximetry 98 09/09/24 11:29 Temperature 36.8 C 09/09/24 11:35 Pulse 108 H 09/09/24 11:35 Respiratory Rate 20 09/09/24 11:35 Blood Pressure 92/64 L 09/09/24 11:35 Blood Pressure Position Sitting 09/09/24 11:35 Pulse Oximetry 98 09/09/24 11:35 Oxygen Delivery Method Room Air 09/09/24 11:35 Oxygen Flow Rate 0 09/09/24 11:35 PFSH All Active Problems (Updated 09/09/24 @ 14:03 by Amauri Busch MD) Hypokalemia (Acute) Acute hypokalemia (Acute) Pancreatitis (Chronic) BENSON (acute kidney injury) (Acute) Tick-borne disease (Acute) Dental infection (Acute) Osteoarthritis of right hip (Acute) POCUS injection: 08/08/2024 Hearing loss (Acute) Panic disorder (Acute) Anxiety (Chronic) Atrophic vaginitis (Acute) Status post hysteroscopic polypectomy (Acute) Endometrial polyp (Acute) Left ovarian cyst (Acute) Colon polyp, hyperplastic (Acute ~02/2020) Right flank pain (Acute) Complex renal cyst (Acute) Chronic GERD (Acute) Hiatal hernia (Chronic) Postprandial RUQ pain (Acute) Colon polyp (Acute) Esophagitis (Acute) Duodenitis (Acute) Gastritis (Acute) FH: colon cancer (Acute) Postmenopausal (Acute) Cervical polyp (Acute) Medical History Constipation Hypercholesteremia Surgical History History of colonoscopy (~02/28/20) History of esophagogastroduodenoscopy (EGD) (~02/28/20) Hx of repair of ear bone Family History Mother Pancreatic cancer Father Bowel cancer Social History Smoking/Tobacco Use Status: Never Smoking risk assessment performed?: Yes Alcohol Intake: current Alcohol Intake frequency: a few times a week Drug use: Never Substance use type: does not use Household members: spouse and other Details: 2 sons, one lives in [place] and the other in a [place] Housing: house Sexually active: Yes Do you think of yourself as: straight/heterosexual Current gender identity: female Do you feel safe at home: Yes Do you feel safe in your relationship?: Yes History History 2 Para 2 Hx # Term Pregnancies Multiple births Hx # Pregnancies Ectopic pregnancies AB induced Hx Number of Living Children 1 AB spontaneous PAWSS Have you Been Recently Intoxicated or Drunk Within the Last 30 days?: No Have you Ever Experienced Previous Episodes of Alcohol Withdrawal?: No Have you ever Experienced Withdrawal Seizures?: No Have you ever Experienced Delirium Tremens(DT)s?: No Have you ever undergone Alcohol Rehabilitation Treatment (i.e, inpt ot outpatient treatment programs)?: No Have you ever Experienced Blackouts?: No Have you ever Combined Alcohol with other Downers within the last 90 days?: No Have you ever Combined Alcohol with any other Substance of Abuse during the last 90 days?: No Positive Blood Alcohol level on Presentation? [PCS.BAL]: No Evidence of Increased Autonomic Activity (i.e. HR>120, tremor, sweating, agitation, nausea)?: No Result: 0
[2024-09-09 12:24] LABS: Abs Immature Grans 0.03 10^3/uL (0.0-0.06); Absolute Basophil Count 0.03 10^3/uL (0.0-0.2); Absolute Eosinophil Count 0.02 10^3/uL (0.0-0.7); Absolute Lymphocyte Count 1.96 10^3/uL (1.2-3.4); Absolute Monocyte Count 0.95 10^3/uL (0.1-0.8); Basophils % 0.3 %; Eosinophils % 0.2 %; HCT 47.9 % (36.0-46.0); HGB 16.4 g/dL (11.2-15.7); Immature Grans % 0.3 %; Lymphocytes % 18.5 %; MCH 32.5 pg (27.0-33.0); MCHC 34.2 % (32.0-36.0); MCV 95 fL (80-95); MPV 9.4 fL (8.0-11.0); Neutrophils % 71.7 %; Platelet Count 286 10^3/uL (130-400); RBC 5.04 10^6/uL (3.93-5.22); RDW-SD 41.7 fL; WBC 10.59 10^3/uL (4.4-10.8)
[2024-09-09 12:41] LABS: ALT 90 U/L (14-59); AST 117 U/L (15-37); Albumin 4.7 g/dL (3.4-5.0); Alkaline Phosphatase 98 U/L (46-116); Anion Gap 17.9 mmol/L (3-11); BUN 27 mg/dL (7-18); Bilirubin, Total 1.2 mg/dL (0.2-1.0); CO2 26.1 mmol/L (21.0-32.0); CREATININE 1.4 mg/dL (0.55-1.02); Chloride 92 mmol/L (98-107); Glucose 139 mg/dL (74-106); Lipase 276 U/L (<78); Magnesium 2.3 mg/dL (1.8-2.4); Sodium 136 mmol/L (136-145); Total Protein 9.1 g/dL (6.4-8.2); Troponin I 16 ng/L (<or=51)
[2024-09-09] MEDS: DEXTROSE 5%-0.9% SALINE 1,000 ML 1000 ML IV (12:42)
[2024-09-09] MEDS: Ondansetron 4 MG/2 ML VIAL IVP (12:43)
[2024-09-09] MEDS: POTASSIUM CHLORIDE 10 MEQ/100 ML BAG 100 MEQ IV_INF (13:19)
[2024-09-09] MEDS: Normal Saline 1,000 ML 150 ML IV (13:58)
--- NOTE | 2024-09-09 13:58 | W.PM.HP.N ---
Date of service: 09/09/24 Time of Service: 13:58 Assessment and Plan Assessment and plan (1) Dental infection: Status: Acute Assessment and plan: resolving (2) Gastritis: Status: Acute Assessment and plan: will start probiotic when tolerating po (3) Pancreatitis: Status: Chronic Assessment and plan: IVF/pain meds/npo/advance diet as tolerated (4) Hypokalemia: Status: Acute Assessment and plan: replace with iv replacement, check labs in am History of Present Illness History of Present Illness Chief Complaint: nv Narrative: This is a 59-year-old female presents to the ED with approximate 1 week nausea vomiting and diarrhea. While she was in the ED a workup was initiated which indicated mild pancreatitis patient was subsequently mated to the hospital service for further evaluation and treatment. Patient denies a history of alcohol use but has a history of abdominal surgeries denies a history of any changes in her medications states that she has only mild right upper quadrant pain. The patient does have mild acute kidney injury with a creatinine of 1.4 so further imaging was not attempted. Patient does give a history of recent antibiotics exposure to doxycycline as well as amoxicillin for a tooth infection Review of Systems All systems reviewed & are unremarkable except as noted in HPI and below PFSH All Active Problems (Updated 09/09/24 @ 14:03 by Amauri Busch MD) Hypokalemia (Acute) Acute hypokalemia (Acute) Pancreatitis (Chronic) BENSON (acute kidney injury) (Acute) Tick-borne disease (Acute) Dental infection (Acute) Osteoarthritis of right hip (Acute) POCUS injection: 08/08/2024 Hearing loss (Acute) Panic disorder (Acute) Anxiety (Chronic) Atrophic vaginitis (Acute) Status post hysteroscopic polypectomy (Acute) Endometrial polyp (Acute) Left ovarian cyst (Acute) Colon polyp, hyperplastic (Acute ~02/2020) Right flank pain (Acute) Complex renal cyst (Acute) Chronic GERD (Acute) Hiatal hernia (Chronic) Postprandial RUQ pain (Acute) Colon polyp (Acute) Esophagitis (Acute) Duodenitis (Acute) Gastritis (Acute) FH: colon cancer (Acute) Postmenopausal (Acute) Cervical polyp (Acute) Medical History Constipation Hypercholesteremia Surgical History History of colonoscopy (~02/28/20) History of esophagogastroduodenoscopy (EGD) (~02/28/20) Hx of repair of ear bone Family History Mother Pancreatic cancer Father Bowel cancer Social History Smoking/Tobacco Use Status: Never Smoking risk assessment performed?: Yes Alcohol Intake: current Alcohol Intake frequency: a few times a week Drug use: Never Substance use type: does not use Household members: spouse and other Details: 2 sons, one lives in [place] and the other in a [place] Housing: house Sexually active: Yes Do you think of yourself as: straight/heterosexual Current gender identity: female Do you feel safe at home: Yes Do you feel safe in your relationship?: Yes History History 2 Para 2 Hx # Term Pregnancies Multiple births Hx # Pregnancies Ectopic pregnancies AB induced Hx Number of Living Children 1 AB spontaneous Meds Allergies and Home Medications Allergies Allergy/AdvReac Type Severity Reaction Status Date / Time No Known Allergies Allergy Verified 09/09/24 11:37 Home Medications ?Medication ?Instructions ?Recorded ?Confirmed ?Type rosuvastatin 20 mg tablet 20 mg PO QAM 02/07/20 09/09/24 History pantoprazole 40 mg tablet,delayed 40 mg PO DAILY #30 tabs 02/28/20 09/09/24 Rx release (Protonix) trazodone 50 mg tablet 50 mg PO QHS PRN 03/26/24 09/09/24 History citalopram 10 mg tablet 10 mg PO DAILY 08/26/24 09/09/24 History lorazepam 0.5 mg tablet 0.5 mg PO BID PRN 09/09/24 09/09/24 History tramadol 50 mg tablet 100 mg PO QHS PRN 09/09/24 09/09/24 History Exam Narrative Exam Narrative: HEENT-normocephalic atraumatic mucous membranes moist oropharynx clear extract motions are intact Neck-no lymphadenopathy no JVD no thyromegaly Cardiovascular-no murmur rubs gallop regular rate and rhythm Pulm-clear to auscultation bilaterally good air exchange no accessory muscle use Abdomen-soft nontender nondistended bowel sounds active no peritoneal signs Extremities-no cyanosis or edema bilaterally Neurologic-cranial nerves II through XII intact as tested reflexes extremity normal as tested Psych-alert and oriented x 3 can give a linear history Results Labs 09/09/24 12:17 09/09/24 12:17 Labs: Laboratory Results - last 24 hr 09/09/24 12:17 WBC 10.59 RBC 5.04 Hgb 16.4 H Hct 47.9 H MCV 95 MCH 32.5 MCHC 34.2 RDW 12.0 Plt Count 286 MPV 9.4 Immature Gran % 0.3 Neutrophils % 71.7 Lymphocytes % 18.5 Monocytes % 9.0 Eosinophils % 0.2 Basophils % 0.3 Nucleated RBC % 0.0 Absolute Neutrophils 7.60 H Absolute Lymphocytes 1.96 Absolute Monocytes 0.95 H Absolute Eosinophils 0.02 Absolute Basophils 0.03 Sodium 136 Potassium 3.0 L Chloride 92 L Carbon Dioxide 26.1 Anion Gap 17.9 H BUN 27 H Creatinine 1.4 H Est GFR (CKD-EPI 2020) 42.80 Glucose 139 H Calcium 10.0 Magnesium 2.3 Total Bilirubin 1.2 H AST 117 H ALT 90 H Alkaline Phosphatase 98 Troponin I 16 Total Protein 9.1 H Albumin 4.7 Lipase 276 H Last Vital Signs Temp 36.8 C 09/09/24 11:35 Pulse 88 09/09/24 13:21 Resp 14 09/09/24 13:30 BP 123/51 L 09/09/24 13:21 Pulse Ox 93 09/09/24 13:30 PAWSS Have you Been Recently Intoxicated or Drunk Within the Last 30 days?: No Have you Ever Experienced Previous Episodes of Alcohol Withdrawal?: No Have you ever Experienced Withdrawal Seizures?: No Have you ever Experienced Delirium Tremens(DT)s?: No Have you ever undergone Alcohol Rehabilitation Treatment (i.e, inpt ot outpatient treatment programs)?: No Have you ever Experienced Blackouts?: No Have you ever Combined Alcohol with other Downers within the last 90 days?: No Have you ever Combined Alcohol with any other Substance of Abuse during the last 90 days?: No Positive Blood Alcohol level on Presentation? [PCS.BAL]: No Evidence of Increased Autonomic Activity (i.e. HR>120, tremor, sweating, agitation, nausea)?: No Result: 0 Time Spent Time spent with Patient: 40-54 minutes Time was spent: preparing to see the patient(eg.review tests), obtaining and/or reviewing separately otained hiistory, ordering medications,tests, procedures, referring, communicating with other health care transition mgr, indepentently interpreting results, counseling the patient and care coordination
[2024-09-09 14:07] LABS: Troponin I 15 ng/L (<or=51)
--- NOTE | 2024-09-09 15:05 | W.PC.ACHO ---
Registration Status: ADM IN Primary Language: Preferred Language: Upper Sorbian ED Information & Data Chief Complaint Abd Prob 09/09/24 12:09 Triage Note PT reports persistent N/V/D 09/09/24 11:29 since last 09/05 after eating a pizza from [employer]. Chills, hot flashes , headaches over same time period. Dizziness for the past several days. Medical / Surgical History (Last Reviewed 08/28/24 @ 20:34 by WEN Oscar) Constipation Hypercholesteremia (Last Reviewed 08/28/24 @ 20:34 by WEN Oscar) History of colonoscopy (~02/28/20) History of esophagogastroduodenoscopy (EGD) (~02/28/20) Hx of repair of ear bone Most Recent Vital Signs Temperature 36.2 C L 09/09/24 14:29 Pulse 80 09/09/24 14:29 Pulse 87 09/09/24 13:50 Respiratory Rate 16 09/09/24 14:29 Respiratory Effort Normal 09/09/24 14:29 Respiratory Depth Normal 09/09/24 14:29 Blood Pressure 111/73 09/09/24 14:29 Blood Pressure Mean 73 09/09/24 14:01 Blood Pressure Position Sitting 09/09/24 11:35 Pulse Oximetry 98 09/09/24 14:29 Oxygen Delivery Method Room Air 09/09/24 14:29 Oxygen Flow Rate 0 09/09/24 14:29 Allergies No Known Allergies Allergy (Verified 09/09/24 11:37) IV IV Catheter Type [Left Saline Lock Antecubital] IV Catheter Gauge [Left 18 Antecubital] Diet Orders Category Date Time Status Nothing Per Oral [DIET] Nutrition 09/09/24 13:28 Active Diagnostics 09/09/24 09/09/24 09/09/24 Range/Units 15:05 13:30 12:17 WBC 10.59 (4.4-10.8) 10^3/uL RBC 5.04 (3.93-5.22) 10^6/uL Hgb 16.4 H (11.2-15.7) g/dL Hct 47.9 H (36.0-46.0) % MCV 95 (80-95) fL MCH 32.5 (27.0-33.0) pg MCHC 34.2 (32.0-36.0) % RDW 12.0 (11.7-14.6) % Plt Count 286 (130-400) 10^3/uL MPV 9.4 (8.0-11.0) fL Immature Gran % 0.3 % Neutrophils % 71.7 % Lymphocytes % 18.5 % Monocytes % 9.0 % Eosinophils % 0.2 % Basophils % 0.3 % Nucleated RBC % 0.0 (0.0-0.3) % Absolute Neutrophils 7.60 H (1.2-6.7) 10^3/uL Absolute Lymphocytes 1.96 (1.2-3.4) 10^3/uL Absolute Monocytes 0.95 H (0.1-0.8) 10^3/uL Absolute Eosinophils 0.02 (0.0-0.7) 10^3/uL Absolute Basophils 0.03 (0.0-0.2) 10^3/uL Sodium 136 (136-145) mmol/L Potassium 3.0 L (3.5-5.1) mmol/L Chloride 92 L (98-107) mmol/L Carbon Dioxide 26.1 (21.0-32.0) mmol/L Anion Gap 17.9 H (3-11) mmol/L BUN 27 H (7-18) mg/dL Creatinine 1.4 H (0.55-1.02) mg/dL Est GFR (CKD-EPI 2020) 42.80 (mL/min/1.73m2) Glucose 139 H (74-106) mg/dL Calcium 10.0 (8.5-10.1) mg/dL Magnesium 2.3 (1.8-2.4) mg/dL Total Bilirubin 1.2 H (0.2-1.0) mg/dL AST 117 H (15-37) U/L ALT 90 H (14-59) U/L Alkaline Phosphatase 98 (46-116) U/L Troponin I Cancelled 15 16 (<or=51) ng/L Total Protein 9.1 H (6.4-8.2) g/dL Albumin 4.7 (3.4-5.0) g/dL Lipase 276 H (<78) U/L Intake and Output - 24 Hour Total 09/09/24 11:27 thru 09/09/24 14:44 Intake Total 1000 Output Total 400 Balance 600 Weight 68.492 kg Intake: IV 1000 Output: Urine 400 Other: Urine Color Yellow Urine Appearance Clear Urine Odor None Falls Risk Assessment History of Falls No History 09/09/24 14:29 Contributing Factors No Factors 09/09/24 14:29 Ambulatory Aids Independent 09/09/24 14:29 Tubes/Lines With any additional score 09/09/24 14:29 Gait Evaluation No gait disturbance 09/09/24 14:29 Cognition No cognitive impairment 09/09/24 11:35 Fall Total Score 09/09/24 14:29 Level of Risk Standard/Low Risk 09/09/24 14:29 Problems (Last Reviewed 08/28/24 @ 20:34 by WEN Oscar) Hypokalemia (Acute) Acute hypokalemia (Acute) Pancreatitis (Chronic) BENSON (acute kidney injury) (Acute) Dental infection (Acute) Gastritis (Acute) v v v v v v v v v Sending and/or Receiving Nurses: Please use comment section below to note any information pertinent to the patient hand-off not included above. Information / Comments: Pt came to ED for n/v/d since 09/05. Labs notable for BENSON, hypokalemia and pancreatitis. Pt admitted for fluid and ellectorlyte replacement and monitoring. Pt settled to the floor by this RN and oriented to micheal. Call sharp within reach Report received from:
[2024-09-09] MEDS: Acetaminophen 325 MG TAB PO ×2 (15:35→22:57)
[2024-09-09] MEDS: MORPHine 2 MG/ML SYR 1 MG IVP ×2 (15:35→22:57)
[2024-09-10] MEDS: POTASSIUM CHLORIDE/0.45% NACL 1,000 ML 100 MEQ IV (02:08)
[2024-09-10 07:07] LABS: Abs Immature Grans 0.03 10^3/uL (0.0-0.06); Absolute Basophil Count 0.03 10^3/uL (0.0-0.2); Absolute Eosinophil Count 0.06 10^3/uL (0.0-0.7); Absolute Lymphocyte Count 1.68 10^3/uL (1.2-3.4); Absolute Monocyte Count 0.72 10^3/uL (0.1-0.8); Absolute Neutrophil Count 3.62 10^3/uL (1.2-6.7); Basophils % 0.5 %; HCT 42.2 % (36.0-46.0); HGB 14.2 g/dL (11.2-15.7); Immature Grans % 0.5 %; Lymphocytes % 27.4 %; MCH 33.1 pg (27.0-33.0); MCHC 33.6 % (32.0-36.0); MCV 98 fL (80-95); MPV 9.7 fL (8.0-11.0); Monocytes % 11.7 %; Neutrophils % 58.9 %; Platelet Count 176 10^3/uL (130-400); RBC 4.29 10^6/uL (3.93-5.22); RDW 11.9 % (11.7-14.6); RDW-SD 43.4 fL; WBC 6.14 10^3/uL (4.4-10.8)
[2024-09-10 07:22] LABS: ALT 68 U/L (14-59); AST 82 U/L (15-37); Albumin 3.4 g/dL (3.4-5.0); Alkaline Phosphatase 77 U/L (46-116); Anion Gap 8.6 mmol/L (3-11); BUN 19 mg/dL (7-18); Bilirubin, Total 0.8 mg/dL (0.2-1.0); CO2 30.4 mmol/L (21.0-32.0); CREATININE 0.8 mg/dL (0.55-1.02); Calcium 8.6 mg/dL (8.5-10.1); Chloride 104 mmol/L (98-107); Estimated GFR 83.78 (mL/min/1.73m2); Glucose 88 mg/dL (74-106); Lipase 201 U/L (<78); Sodium 143 mmol/L (136-145); Total Protein 6.9 g/dL (6.4-8.2)
[2024-09-10 07:26] LABS: Potassium 2.8 mmol/L (3.5-5.1)
[2024-09-10 07:27] VITALS: BP 117/82; PULSE 78; RESP 14; TEMP 36.2; O2SAT 98
[2024-09-10] MEDS: MORPHine 2 MG/ML SYR 1 MG IVP (09:03)
[2024-09-10] MEDS: Acetaminophen 325 MG TAB PO ×3 (09:03→21:40)
--- NOTE | 2024-09-10 09:20 | INITIAL_ITS ---
Date of service: 09/10/24 Time of Service: 09:20 Care Management Initial Assmt Initial Assessment Reason for Hospitalization: pancreatitis Functional Status/Living Situation Patient Presentation: Jaymie lives in a single family home in [place] with her Reyes. She had 2 sons but one is . Her other son lives in [place]. Jaymie and her have a home in [place] as well and spend a lot of time there. Jaymie reported that she was born in [place] and was raised in [place]. She moved to [place] and lived there for 25 years after her children were born. 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 Jaymie is independnet at baseline and does not receine any community services. Town of Residence: [place] Resides with: Spouse ( Tevin) Significant Other/Family: Out of area (son in [place]) Employment Status: Retired Instrumental Activities of Daily Living (ADLs): Independent Medications Medication Management: No Issues/Barriers identified Physical Functioning/Mobility Assistive Device: none Advance Directives Advance Directives: Do you have an Advance Directive: N , 11:22 AD On File at [facility]: N 09/25/15, 11:22 Date Asked 08/25/24 08/25/24, 09:10 AD Date Reviewed COLST On File at [facility] COLST Date Scanned Code Status Resuscitation Status Full Code Insurance Coverage/Financial Issues Insurance: [place] Care Team Visit Care Team Role Provider Type Lenore Payne MD Primary Care Provider [facility] STAFF PHYSICIAN Vicki Mckeon Other Providers [employer] Mayra Jacinto Other Providers [employer] Ana Maria Cuellar Other Providers [employer] Vika Keith RN Other Providers [employer] Karen Busch Other Providers [employer] Ernesto Dixon MD Emergency Provider [facility] STAFF PHYSICIAN Amauri Busch MD Admit Provider [facility] STAFF PHYSICIAN Attending Provider Discharge Potential Discharge Needs: PCP F/U Appt Anticipated Barriers to Discharge: None Identified Patient/Family Education Needs: Review discharge instructions, discuss Ask Me Three Transportation: Private vehicle Plan: Anticipate Jaymie will be discharged home with no new services when medically cleared. She will follow up with her PCP and plan of care and transport with family. CM will follow and cointinue to support discharge planning Social Determinants of Health Screening Social Determinants of health last assessed in clinic: 09/10/24 Will the Patient Participate in the Screening?: Yes Do you worry about having a steady place to live?: no Problems where you live: no known problems In the past 12 months, have you had to go without electric, gas, oil or water in your home?: no 1. Within the past 12 months, we worried whether our food would run out before we got money to buy more.: Never true 2. Within the past 12 months, the food we bought just didn't last and we didn't have money to get more.: Never true Has lack of transportation kept you from medical appointments or from doing things needed for daily living?: no Has anyone in your life made you feel unsafe or unsupported?: no How hard is it for you to pay for the very basics like food, housing, medical care, and heating? Would you say it is:: Not hard at all Do you want help finding or keeping work or a job?: I do not need or want help If for any reason you need help with day-to-day activities such as bathing, preparing meals, shopping, managing finances, etc., do you get the help you need?: I don?t need any help How often do you feel lonely or isolated from those around you?: Never Do you speak a language other than [place] Islander at home?: No Does the patient want assistance with any of the above?: No PFSH All Active Problems (Updated 09/09/24 @ 14:03 by Amauri Busch MD) Hypokalemia (Acute) Acute hypokalemia (Acute) Pancreatitis (Chronic) BENSON (acute kidney injury) (Acute) Tick-borne disease (Acute) Dental infection (Acute) Osteoarthritis of right hip (Acute) POCUS injection: 08/08/2024 Hearing loss (Acute) Panic disorder (Acute) Anxiety (Chronic) Atrophic vaginitis (Acute) Status post hysteroscopic polypectomy (Acute) Endometrial polyp (Acute) Left ovarian cyst (Acute) Colon polyp, hyperplastic (Acute ~02/2020) Right flank pain (Acute) Complex renal cyst (Acute) Chronic GERD (Acute) Hiatal hernia (Chronic) Postprandial RUQ pain (Acute) Colon polyp (Acute) Esophagitis (Acute) Duodenitis (Acute) Gastritis (Acute) FH: colon cancer (Acute) Postmenopausal (Acute) Cervical polyp (Acute) Medical History Constipation Hypercholesteremia Surgical History History of colonoscopy (~02/28/20) History of esophagogastroduodenoscopy (EGD) (~02/28/20) Hx of repair of ear bone Family History Mother Pancreatic cancer Father Bowel cancer Social History Smoking/Tobacco Use Status: Never Smoking risk assessment performed?: Yes Alcohol Intake: current Alcohol Intake frequency: a few times a week Drug use: Never Substance use type: does not use Household members: spouse and other Details: 2 sons, one lives in [place] and the other in [place] [facility] [place] Sexually active: Yes Do you think of yourself as: straight/heterosexual Current gender identity: female Do you feel safe at home: Yes Do you feel safe in your relationship?: Yes History History 2 Para 2 Hx # Term Pregnancies Multiple births Hx # Pregnancies Ectopic pregnancies AB induced Hx Number of Living Children 1 AB spontaneous
--- NOTE | 2024-09-10 12:53 | PGE_ITS ---
Date of Service Date of service: 09/10/24 Time of Service: 12:53 Assessment and Plan Assessment and plan (1) Dental infection: Status: Acute Assessment and plan: resolving (2) Gastritis: Status: Acute Assessment and plan: will start probiotic when tolerating po (3) Pancreatitis: Status: Chronic Assessment and plan: IVF/pain meds/npo/advance diet as tolerated 09/10/24 CT abd/pelvis ordered. Advance diet as tolerated. Change pain meds to orals only plan to dc in am (4) Hypokalemia: Status: Acute Assessment and plan: replace with iv replacement, check labs in am start oral replacement as well Subjective Subjective Interval history since last seen: PT seen and examined in her room. Denies significant pain or n/v. Exam Narrative Exam Narrative: HEENT-normocephalic atraumatic mucous membranes moist oropharynx clear extract motions are intact Neck-no lymphadenopathy no JVD no thyromegaly Cardiovascular-no murmur rubs gallop regular rate and rhythm Pulm-clear to auscultation bilaterally good air exchange no accessory muscle use Abdomen-soft nontender nondistended bowel sounds active no peritoneal signs Extremities-no cyanosis or edema bilaterally Neurologic-cranial nerves II through XII intact as tested reflexes extremity normal as tested Psych-alert and oriented x 3 can give a linear history Objective Last Vital Signs Temp 36.2 C L 09/10/24 07:27 Pulse 78 09/10/24 07:27 Resp 14 09/10/24 07:27 BP 117/82 09/10/24 07:27 Pulse Ox 98 09/10/24 07:27 Laboratory Results - last 24 hr 09/09/24 09/09/24 09/10/24 13:30 15:05 05:57 WBC 6.14 RBC 4.29 Hgb 14.2 D Hct 42.2 MCV 98 H MCH 33.1 H MCHC 33.6 RDW 11.9 Plt Count 176 MPV 9.7 Immature Gran % 0.5 Neutrophils % 58.9 Lymphocytes % 27.4 Monocytes % 11.7 Eosinophils % 1.0 Basophils % 0.5 Nucleated RBC % 0.0 Absolute Neutrophils 3.62 Absolute Lymphocytes 1.68 Absolute Monocytes 0.72 Absolute Eosinophils 0.06 Absolute Basophils 0.03 Sodium 143 Potassium 2.8 L* Chloride 104 Carbon Dioxide 30.4 Anion Gap 8.6 BUN 19 H Creatinine 0.8 Est GFR (CKD-EPI 2020) 83.78 Glucose 88 Calcium 8.6 Total Bilirubin 0.8 AST 82 H ALT 68 H Alkaline Phosphatase 77 Troponin I 15 Cancelled Total Protein 6.9 Albumin 3.4 Lipase 201 H PAWSS Have you Been Recently Intoxicated or Drunk Within the Last 30 days?: No Have you Ever Experienced Previous Episodes of Alcohol Withdrawal?: No Have you ever Experienced Withdrawal Seizures?: No Have you ever Experienced Delirium Tremens(DT)s?: No Have you ever undergone Alcohol Rehabilitation Treatment (i.e, inpt ot outpatient treatment programs)?: No Have you ever Experienced Blackouts?: No Have you ever Combined Alcohol with other Downers within the last 90 days?: No Have you ever Combined Alcohol with any other Substance of Abuse during the last 90 days?: No Positive Blood Alcohol level on Presentation? [PCS.BAL]: No Evidence of Increased Autonomic Activity (i.e. HR>120, tremor, sweating, agitation, nausea)?: No Result: 0 Time Spent with Patient Time Spent with Patient: 25-34 minutes Time was spent: preparing to see the patient(eg.review tests), obtaining and/or reviewing separately otained hiistory, ordering medications,tests, procedures, referring, communicating with other health child care group leader, indepentently interpreting results, counseling the patient and care coordination
--- NOTE | 2024-09-10 13:51 | CHAPLAIN ---
Jaymie was in bed when I visited, playing Candy Crush. She said she hasn't felt like playing until now so she's feeling better. She's in touch with her family and her has been visiting. Jaymie asked a question about her medication, so I passed it one to Dr. Busch.
[2024-09-10] MEDS: Omnipaque 350 MG/ML 100 ML BTL IJ (14:05)
[2024-09-10] MEDS: Normal Saline - Diluent 50 ML VIAL IJ (14:07)
--- NOTE | 2024-09-10 14:15 | DI.CT_ITS ---
Exam(s) CT ABDOMEN PELVIS W EXAM: CT ABDOMEN PELVIS W CLINICAL HISTORY: pancreatitis. TECHNIQUE: Imaging Protocol: Axial computed tomography images with coronal and sagittal reformatted images were created and reviewed CONTRAST MATERIAL: Intravenous: Omnipaque 350 Contrast volume:100 ml Oral: no COMPARISON: CT CT ABDOMEN PELVIS W from 02/23/2023 FINDINGS: ABDOMEN and PELVIS: Lung Bases: No acute findings. Liver: Normal density. No suspicious mass. Gallbladder and biliary tract: No radiodense calculus. No wall thickening or pericholecystic fluid. No biliary dilation. Pancreas: Normal density. No abnormal calcifications or inflammatory process. No evidence of mass. Spleen: Normal. Kidneys: Normal size, contour and axis. No radiodense stones. No obstructive uropathy. No suspicious masses seen. Stable centimeter cyst upper pole left kidney. Adrenal glands: No masses seen. Vasculature: Abdominal aorta non-dilated. Soft tissues: Unremarkable. Bladder: No gross wall thickening. No calculi.No focal mass. Bowel: No obstruction. No bowel wall thickening. Appendix normal. Peritoneal cavity: No ascites. No focal collection. No mesenteric inflammatory response. No free air. Bones: Unremarkable for age. Reproductive organs: Retroverted uterus. Stable 4.8 cm simple appearing cyst of the left ovary. Lymph nodes: No pathologically enlarged lymph nodes. IMPRESSION:: No acute abnormality in the abdomen or pelvis. No CT evidence of pancreatitis. No visible gallstones or gallbladder wall thickening. No biliary dilatation or dilatation of the pancreatic duct. RADIATION DOSE DELIVERED: Total DLP DATA REPOSITORY: All CT scans at this facility are submitted to the National Radiology Data Registry (NRDR) Dose Index Registry (DIR) with the [employer] (ACR). RADIATION OPTIMIZATION: All CT scans at this facility use at least one of these dose optimization techniques: automated exposure control; mA and/or kV adjustment per patient size (includes targeted exams where dose is matched to clinical indication); or iterative reconstruction.
[2024-09-10 14:44] VITALS: BP 130/90; PULSE 78; RESP 18; TEMP 36.8; O2SAT 96
[2024-09-10] MEDS: oxyCODONE 5 MG TAB PO ×2 (15:34→21:40)
[2024-09-10 20:02] VITALS: BP 139/90; PULSE 64; RESP 16; TEMP 36.5; O2SAT 96
[2024-09-10] MEDS: POTASSIUM CHLORIDE 20 MEQ, POTASSIUM CHLORIDE 10 MEQ 30 MEQ PO (22:11)
[2024-09-11] MEDS: POTASSIUM CHLORIDE/0.45% NACL 1,000 ML 100 MEQ IV (01:55)
[2024-09-11 06:46] LABS: Abs Immature Grans 0.01 10^3/uL (0.0-0.06); Absolute Basophil Count 0.03 10^3/uL (0.0-0.2); Absolute Eosinophil Count 0.06 10^3/uL (0.0-0.7); Absolute Lymphocyte Count 1.64 10^3/uL (1.2-3.4); Absolute Monocyte Count 0.58 10^3/uL (0.1-0.8); Basophils % 0.6 %; Eosinophils % 1.1 %; HCT 40.8 % (36.0-46.0); HGB 13.8 g/dL (11.2-15.7); Immature Grans % 0.2 %; Lymphocytes % 30.3 %; MCH 32.9 pg (27.0-33.0); MCHC 33.8 % (32.0-36.0); MCV 97 fL (80-95); Monocytes % 10.7 %; Neutrophils % 57.1 %; Platelet Count 174 10^3/uL (130-400); RDW 11.8 % (11.7-14.6); RDW-SD 42.2 fL; WBC 5.42 10^3/uL (4.4-10.8)
[2024-09-11 07:26] LABS: Lipase 172 U/L (<78)
[2024-09-11 07:27] VITALS: BP 124/78; PULSE 74; RESP 15; TEMP 36.9; O2SAT 97
[2024-09-11 07:36] LABS: ALT 59 U/L (14-59); AST 49 U/L (15-37); Albumin 3.4 g/dL (3.4-5.0); Alkaline Phosphatase 74 U/L (46-116); Anion Gap 6.4 mmol/L (3-11); BUN 10 mg/dL (7-18); Bilirubin, Total 0.7 mg/dL (0.2-1.0); CO2 31.6 mmol/L (21.0-32.0); CREATININE 0.7 mg/dL (0.55-1.02); Calcium 8.8 mg/dL (8.5-10.1); Chloride 105 mmol/L (98-107); Estimated GFR 98.34 (mL/min/1.73m2); Glucose 115 mg/dL (74-106); Potassium 3.3 mmol/L (3.5-5.1); Sodium 143 mmol/L (136-145); Total Protein 6.8 g/dL (6.4-8.2)
[2024-09-11] MEDS: POTASSIUM CHLORIDE 20 MEQ, POTASSIUM CHLORIDE 10 MEQ 30 MEQ PO (09:17)
[2024-09-11] MEDS: Acetaminophen 325 MG TAB PO (09:26)
[2024-09-11] MEDS: oxyCODONE 5 MG TAB PO (09:26)
--- NOTE | 2024-09-11 09:49 | W.PM.DS.N ---
Date of service: 09/11/24 Time of Service: 09:49 DS: Diagnosis Discharge Diagnosis (1) Dental infection: Status: Acute (2) Gastritis: Status: Acute (3) Pancreatitis: Status: Chronic (4) Hypokalemia: Status: Acute Discharge Plan Disposition Patient Disposition: Home Condition: Stable Discharge Details Reason For Visit: pancreatitis Admit Date/Time: 09/09/24 13:28 Admit Provider: Amauri Busch Attending Provider: Amauri Busch Primary Care Provider: Lenore Payne [facility] Course Hospital Course: Patient was admitted for nausea and vomiting and mild pancreatitis. than patient's normal CT scan of the belly was attached to her job. On the she was tolerating her normal diet asked to be discharged home. I will send her home with pain medications as well as antiemetics sent to her pharmacy. Her lipase had improved throughout her stay and appears appropriate for discharge. I did recommend that the patient hold her statin as this could cause pancreatitis for a couple of weeks. I also recommend the patient follow-up with general surgery for evaluation of her nausea and vomiting and potentially be further endoscopy. History of Present Illness History of Present Illness Chief Complaint: nv Narrative: This is a 59-year-old female presents to the ED with approximate 1 week nausea vomiting and diarrhea. While she was in the ED a workup was initiated which indicated mild pancreatitis patient was subsequently mated to the hospital service for further evaluation and treatment. Patient denies a history of alcohol use but has a history of abdominal surgeries denies a history of any changes in her medications states that she has only mild right upper quadrant pain. The patient does have mild acute kidney injury with a creatinine of 1.4 so further imaging was not attempted. Patient does give a history of recent antibiotics exposure to doxycycline as well as amoxicillin for a tooth infection. Assessment and Plan Assessment and plan (1) Dental infection: Status: Acute Assessment and plan: resolving (2) Gastritis: Status: Acute Assessment and plan: will start probiotic when tolerating po (3) Pancreatitis: Status: Chronic Assessment and plan: IVF/pain meds/npo/advance diet as tolerated (4) Hypokalemia: Status: Acute Assessment and plan: replace with iv replacement, check labs in am CT abd/pelvis IMPRESSION:: No acute abnormality in the abdomen or pelvis. No CT evidence of pancreatitis. No visible gallstones or gallbladder wall thickening. No biliary dilatation or dilatation of the pancreatic duct. Home Meds and New Rx's Prescriptions: New oxycodone 5 mg Tablet 5 mg PO Q6H PRN PRNQty: 10 0RF potassium chloride 15 mEq Tablet,Er Particles/Crystals 30 meq PO BID 20 Days Qty: 80 0RF ondansetron 4 mg tablet,disintegrating 4 mg PO Q8H PRNQty: 14 0RF Continued trazodone 50 mg tablet 50 mg PO QHS PRN citalopram 10 mg tablet 10 mg PO DAILY Patient Comments: TAKE TWO TABLETS BY MOUTH EVERY MORNING lorazepam 0.5 mg tablet 0.5 mg PO BID PRN Patient Comments: TAKE ONE TO TWO TABLETS BY MOUTH ONCE DAILY NEEDED FOR PANIC ATTACK +10 TABLETS FOR 30 DAYS+ tramadol 50 mg tablet 100 mg PO QHS PRN Patient Comments: TAKE TWO TABLETS BY MOUTH EVERY EVENING AT BEDTIME NEEDED FOR WORST PAIN MAXIMUM DAILY DOSE = 2 pantoprazole [Protonix] 40 mg tablet,delayed release (DR/EC) 40 mg PO DAILY Qty: 30 12RF Held rosuvastatin 20 mg tablet 20 mg PO QAM Hold Instructions: Resume on 09/25/24. restart in two weeks Patient Comments: TAKE ONE TABLET BY MOUTH AT BEDTIME Discharge Instructions Referrals: Lenore Payne MD [Primary Care Provider, Medicine] Referral Note: follow up in 5-7 days Activity:: Activity as Tolerated Equipment/Supplies:: No Equipment Needed Diet:: As Tolerated Discharge Orders Discharge Orders: Discharge Order (Routine); Ordered 09/11/24 Ordered By: Amauri Busch DS: Summary Time Spent with Patient providing and/or coordinating discharge services: Greater than 30 minutes Status at Discharge Functional status at discharge: independent ambulation Overall status at discharge: patient is back to baseline Mental Status: mental status grossly normal Speech and Movement: speech and movement normal Mood: congruent mood Affect: normal affect Exam Narrative Exam Narrative: HEENT-normocephalic atraumatic mucous membranes moist oropharynx clear extract motions are intact Neck-no lymphadenopathy no JVD no thyromegaly Cardiovascular-no murmur rubs gallop regular rate and rhythm Pulm-clear to auscultation bilaterally good air exchange no accessory muscle use Abdomen-soft nontender nondistended bowel sounds active no peritoneal signs Extremities-no cyanosis or edema bilaterally Neurologic-cranial nerves II through XII intact as tested reflexes extremity normal as tested Psych-alert and oriented x 3 can give a linear history Psych Mental Status: mental status grossly normal Speech and Movement: speech and movement normal Mood: congruent mood Affect: normal affect DS: Data Vitals/I&O Vitals and I&O: Vital Signs Temperature 36.9 C 09/11/24 07:27 Temperature Source Temporal Artery Scan 09/11/24 07:27 Pulse 74 09/11/24 07:27 Pulse 87 09/09/24 13:50 Respiratory Rate 15 09/11/24 07:27 Respiratory Effort Normal 09/09/24 14:29 Respiratory Depth Normal 09/09/24 14:29 Blood Pressure 124/78 09/11/24 07:27 Blood Pressure Mean 93 09/11/24 07:27 Blood Pressure Position Sitting 09/09/24 11:35 Pulse Oximetry 97 09/11/24 07:27 Oxygen Delivery Method Room Air 09/11/24 07:27 Oxygen Flow Rate 0 09/11/24 07:27 Pain Level 3 09/11/24 09:26 Comment patient asked to not be woken up for vitals 09/11/24 05:22 Intake & Output 09/10/24 09/10/24 09/11/24 11:59 23:59 11:59 Intake Total 1000 / 1000 300 / 300 Output Total 800 / 1800 1000 / 1800 800 / 800 Balance -800 / -800 0 / -800 -500 / -500 Weight 71.668 kg 72 kg Intake: IV 1000 / 1000 Oral 300 / 300 Output: Urine 800 / 1800 1000 / 1800 800 / 800 Other: Urine Color Yellow Yellow Yellow Urine Appearance Clear Clear Clear Urine Odor Normal Comment pt self reported this was two times an hour apart Data Completed and Pending Labs on day of discharge: Labs from last 24 hours 09/11/24 06:10 WBC 5.42 RBC 4.20 Hgb 13.8 Hct 40.8 MCV 97 H MCH 32.9 MCHC 33.8 RDW 11.8 Plt Count 174 MPV 10.0 Immature Gran % 0.2 Neutrophils % 57.1 Lymphocytes % 30.3 Monocytes % 10.7 Eosinophils % 1.1 Basophils % 0.6 Nucleated RBC % 0.0 Absolute Neutrophils 3.10 Absolute Lymphocytes 1.64 Absolute Monocytes 0.58 Absolute Eosinophils 0.06 Absolute Basophils 0.03 Sodium 143 Potassium 3.3 L Chloride 105 Carbon Dioxide 31.6 Anion Gap 6.4 BUN 10 Creatinine 0.7 Est GFR (CKD-EPI 2020) 98.34 Glucose 115 H Calcium 8.8 Total Bilirubin 0.7 AST 49 H ALT 59 Alkaline Phosphatase 74 Total Protein 6.8 Albumin 3.4 Lipase 172 H PFSH All Active Problems (Updated 09/09/24 @ 14:03 by Amauri Busch MD) Hypokalemia (Acute) Acute hypokalemia (Acute) Pancreatitis (Chronic) BENSON (acute kidney injury) (Acute) Tick-borne disease (Acute) Dental infection (Acute) Osteoarthritis of right hip (Acute) POCUS injection: 08/08/2024 Hearing loss (Acute) Panic disorder (Acute) Anxiety (Chronic) Atrophic vaginitis (Acute) Status post hysteroscopic polypectomy (Acute) Endometrial polyp (Acute) Left ovarian cyst (Acute) Colon polyp, hyperplastic (Acute ~02/2020) Right flank pain (Acute) Complex renal cyst (Acute) Chronic GERD (Acute) Hiatal hernia (Chronic) Postprandial RUQ pain (Acute) Colon polyp (Acute) Esophagitis (Acute) Duodenitis (Acute) Gastritis (Acute) FH: colon cancer (Acute) Postmenopausal (Acute) Cervical polyp (Acute) Medical History Constipation Hypercholesteremia Surgical History History of colonoscopy (~02/28/20) History of esophagogastroduodenoscopy (EGD) (~02/28/20) Hx of repair of ear bone Family History Mother Pancreatic cancer Father Bowel cancer Social History Smoking/Tobacco Use Status: Never Smoking risk assessment performed?: Yes Alcohol Intake: current Alcohol Intake frequency: a few times a week Drug use: Never Substance use type: does not use Household members: spouse and other Details: 2 sons, one lives in [place] and the other in a [place] Housing: house Sexually active: Yes Do you think of yourself as: straight/heterosexual Current gender identity: female Do you feel safe at home: Yes Do you feel safe in your relationship?: Yes History History 2 Para 2 Hx # Term Pregnancies Multiple births Hx # Pregnancies Ectopic pregnancies AB induced Hx Number of Living Children 1 AB spontaneous Time Spent with Patient Time Spent with Patient: 45-69 minutes Time was spent: preparing to see the patient(eg.review tests), obtaining and/or reviewing separately otained hiistory, ordering medications,tests, procedures, referring, communicating with other health health care specialist, indepentently interpreting results, counseling the patient and care coordination
--- NOTE | 2024-09-11 09:54 | PDOC.CMDIS ---
Date of service: 09/11/24 Time of Service: 09:54 LACE Index Scoring Tool Questions: Length of Stay (in days): 2 Was the patient admitted via the E.D.?: Yes E.D. Visits: 3 Answers: Total Score: 8 Risk of Readmission: Low Risk Care Management Discharge Plan Reason for Hospitalization: Pancreatitis Discharge Plan: Jaymie will be discharged home with no new services. She will follow up with her PCP and plan of care and transport with family. Patient/Family Education Needs: Review discharge instructions, discuss Ask Me Three
== END 2024-09-11 11:46 | disposition home or self-care (01) ==
LOC: ER 11:43 → MS 09-10 08:02
PROVIDERS: Admitting Provider Hospitalist; Emergency Provider Emergency Medicine; PCP Family Medicine; Responsible Provider Hospitalist; Visit Provider Hospitalist
DX: N17.9 Acute kidney failure, unspecified (principal); K29.00 Acute gastritis without bleeding; K04.7 Periapical abscess without sinus; K86.1 Other chronic pancreatitis; E87.6 Hypokalemia; R11.2 Nausea with vomiting, unspecified; R19.7 Diarrhea, unspecified; R51.9 Headache, unspecified; R73.9 Hyperglycemia, unspecified; F41.0 Panic disorder [episodic paroxysmal anxiety]; K59.00 Constipation, unspecified; E78.00 Pure hypercholesterolemia, unspecified; K21.9 Gastro-esophageal reflux disease without esophagitis; K44.9 Diaphragmatic hernia without obstruction or gangrene; Z80.0 Family history of malignant neoplasm of digestive organs
CPT/HCPCS: 00123; 36415; 80053; 83690; 93005; 96361; 96374; 96375; 96376; 99285; 74177; 83735; 84484; 85025; 93010; 99222; 99232; 99239; G0378; J2270; J2405; J3480; J3490; J7042

== ENCOUNTER 2024-09-19 15:57 | Outpatient (REF) | payer OTHER, SELFPAY ==
[2024-09-19 19:31] LABS: Anion Gap 13.1 mmol/L (3-11); BUN 15 mg/dL (7-18); CO2 23.9 mmol/L (21.0-32.0); CREATININE 0.6 mg/dL (0.55-1.02); Calcium 9.5 mg/dL (8.5-10.1); Chloride 103 mmol/L (98-107); Estimated GFR 102.06 (mL/min/1.73m2); Glucose 96 mg/dL (74-106); Magnesium 2.3 mg/dL (1.8-2.4); Sodium 140 mmol/L (136-145)
== END 2024-09-19 15:58 | disposition home or self-care (01) ==
LOC: NCHCN 15:57
PROVIDERS: PCP Family Medicine; Visit Provider Student in an Organized Health Care Education/Training Program
DX: E87.6 Hypokalemia (principal)
CPT/HCPCS: 80048; 83735

== ENCOUNTER 2024-10-14 08:25 | Day surgery (SDC) | payer OTHER, SELFPAY ==
--- NOTE | 2024-10-13 13:39 | PDOC.DSDIS_ITS ---
Date of service: 10/14/24 Discharge Plan Disposition Patient Disposition: Home Condition: Good Discharge Details Reason For Visit: EGD and colonoscopy Attending Provider: Napoleon Whipple Primary Care Provider: Lenore Payne Home Meds and New Rx's Prescriptions: Continued trazodone 50 mg tablet 50 mg PO QHS PRN citalopram 10 mg tablet 20 mg PO DAILY Patient Comments: TAKE TWO TABLETS BY MOUTH EVERY MORNING ondansetron 4 mg tablet,disintegrating 4 mg PO Q8H PRNQty: 14 0RF rosuvastatin 20 mg tablet 20 mg PO QAM Patient Comments: TAKE ONE TABLET BY MOUTH AT BEDTIME pantoprazole [Protonix] 40 mg tablet,delayed release (DR/EC) 40 mg PO DAILY Qty: 30 12RF pravastatin 20 mg tablet 20 mg PO DAILY Patient Comments: TAKE ONE TABLET BY MOUTH EVERY DAY Discontinued bisacodyl [Dulcolax (bisacodyl)] 5 mg tablet,delayed release (DR/EC) 5 mg PO ONCE Qty: 4 0RF Rx Instructions: Take per colonoscopy instructions provided by ordering providers office Discharge Instructions Instructions: Esophagitis Additional Instructions: Jaymie, it was very nice meeting you today, and I hope you make a quick recovery from your procedures. With regards to the upper endoscopy, you do have signs of esophagitis, or inflammation of the lower segment of your esophagus. It is approximately 7 cm in length. I did several biopsies of this to see if that sheds any light on the source. This is almost certainly related to the symptoms that you have been experiencing. The biopsies will take a week or so to get back, once I have that information, I will be in touch with any other recomme ndations. In the meantime, I would continue using the pantoprazole that you are already prescribed. Your colonoscopy was totally normal. If you need anything, or have any questions at all, please do not hesitate to ask, otherwise I will give you a call once the biopsy results are available. 1. If tolerated, consume a soft, low fiber diet for 1-2 days. [address] Do not drive, drink alcohol, operate machinery, make critical decisions, or do activities that require coordination or balance for 24 hours. 3. Because air was put into your colon during the procedure, expelling air from your rectum (passing gas or farting) is normal. 4. You may not have a bowel movement for 1-3 days because of the colonoscopy prep. This is normal. 5. You may experience a sore throat for 24 to 48 hours. You may use throat lozenges or gargle with warm salt water to relieve the discomfort. 6. Because air was put into your stomach during the procedure, you may experience some belching. 7. Go directly to the emergency room if you notice any of the following: Develop chills (warm to touch), or if you have a thermometer and your temperature is above 101 Difficulty breathing or difficultly swallowing Persistent vomiting Severe abdominal pain, other than gas cramps Severe chest pain Black, tarry stools Any bleeding ? exceeding one tablespoon 8. Call your physician if the site where your intravenous was started becomes red, swollen, painful, and warm to touch. 9. Your physician has reviewed your pre-procedure medications. Please continue to take those medications as previously ordered. You will be given specific information/education regarding any changes to your medications before leaving. Activity:: Activity as Tolerated Diet:: As Tolerated Discharge Orders Discharge Orders: Discharge Order (Routine); Ordered 10/13/24 Ordered By: Napoleon Whipple DS: Diagnosis Discharge Diagnosis (1) Encounter for screening colonoscopy: Status: Acute Asessment and Plan: Follow-up biopsy results
--- NOTE | 2024-10-13 13:41 | W.PM.ENDDOP ---
Date of service: 10/14/24 Time of Service: 10:48 Endoscopy Report DATE OF PROCEDURE: 10/14/24 PRE-OP DIAGNOSIS: dysphagia and screening colonoscopy POST-OP DIAGNOSIS: other (Esophagitis, negative screening colonoscopy) PROCEDURE: EGD with biopsies and colonoscopy SURGEON: Napoleon Whipple ANESTHESIA TYPE: General:No Airway ESTIMATED BLOOD LOSS: 5 PATHOLOGY: other (Esophageal biopsies, biopsies of GE junction, random biopsies of gastric antrum and body.) COMPLICATIONS: None DISPOSITION: same day INDICATIONS: Jaymie is a 59 year old woman with progressive dysphagia despoite PPI therapy who also needs a screening colonoscopy PREP: Miralax/Dulcolax PROCEDURE START TIME: 10:05 PROCEDURE END TIME: 10:29 COLONOSCOPY RETRACTION TIME: 10 FINDINGS: Esophagitis PROCEDURE DESCRIPTION: After the initiation of anesthesia, and with the assistance of a bite block, I advanced a standard gastroscope through the mouth past the hypopharynx and into the esophagus.? Under the direct vision of the scope, I advanced down the esophagus towards the stomach. There is a small esophageal inlet patch high in the esophagus. I would estimate this to be about 20 cm beyond the incisors, although measurements are little difficult at this location. There is no signs of inflammation here. The midportion of the esophagus down to about 30 cm beyond the incisors is normal and healthy appearing. Beginning 30 cm past the incisors extending down to 37 cm at the GE junction are multiple punctate areas of ulceration and inflammation consistent with esophagitis. Cold forceps biopsies were performed here. The Z-line was mostly regular at the GE junction. Narrowband imaging was used to assist with the analysis. I did perform cold forceps biopsies of the GE junction to rule out Jacobo's. I then advanced down across the GE junction into the stomach and insufflated into the rugae were obliterated. I performed retroflexion. I did not appreciate any hiatal hernias. The gastric mucosa is all normal and healthy. I saw no evidence of any active gastritis or ulceration. The mucosa is totally normal down through the pylorus, which I can traverse with ease. The duodenum is normal. I then brought the camera back up into the stomach and perform some nondirected biopsies of the gastric antrum and body to rule out Helicobacter pylori. The stomach was then emptied, and the camera was brought back out along the length of the esophagus 1 last time. No other abnormalities were appreciated. We then rolled Jaymie into the left lateral decubitus position. Great care was taken to ensure that she was padded and supported appropriately. I began by performing an external anorectal exam.? Perineum and skin were normal, as was the anal verge.? There was no evidence of external hemorrhoids.? Next, I performed a digital rectal exam.? I did not appreciate any abnormal findings.? Next, I advanced a colonoscope into the rectal vault.? I performed retroflexion.? This appeared normal.? Using insufflation, I then advanced the colonoscope beyond the rectal folds and into the sigmoid colon before advancing towards the cecum.? The quality of the prep was excellent.? The scope was noted to be in the cecum by identification of the ileocecal valve and appendiceal orifice.? I then began withdrawing the colonoscope using repeated irrigation as necessary for full evaluation of the colonic mucosa. ?Once the scope was withdrawn to the level of the rectum, great care was taken to examine portions of the rectal folds.? [place] bowel prep score from right to left was 3, 3, 3. Finally, the scope was withdrawn and the patient was brought to the same-day surgery recovery unit as the anesthetic wore off. ?The findings and instructions were shared with the patient prior to discharge.
[2024-10-14 08:33] VITALS: BP 130/87; PULSE 73; RESP 18; TEMP 36.2; O2SAT 96
--- NOTE | 2024-10-14 08:57 | ANES.PREOP_ITS ---
General Info Date of Service Date Performed: 10/14/24 Height: 5 ft 7 in Weight: 71.9 kg Body Mass Index (BMI): 24.8 Surgical Procedure: Operation Date: 10/14/24 09:50 Proposed Procedure Side Surgeon p Colonoscopy/Gastroscopy Napoleon Whipple MD Meds Allergies and Home Medications Allergies Allergy/AdvReac Type Severity Reaction Status Date / Time No Known Allergies Allergy Verified 10/11/24 08:52 Home Medication ?Medication ?Instructions ?Recorded rosuvastatin 20 mg tablet 20 mg PO QAM 02/07/20 pantoprazole 40 mg tablet,delayed 40 mg PO DAILY #30 t abs 02/28/20 release (Protonix) trazodone 50 mg tablet 50 mg PO QHS PRN 03/26/24 citalopram 10 mg tablet 20 mg PO DAILY 08/26/24 ondansetron 4 mg disintegrating 4 mg PO Q8H PRN #14 ta bs 09/11/24 tablet pravastatin 20 mg tablet 20 mg PO DAILY 10/11/24 Current Visit Medications: Current Medications Generic Name Dose Route Start Last Admin Trade Name Rileyq PRN Reason Stop Dose Admin Ringer's Solution 1,000 mls @ 80 mls/hr 10/14/24 06:00 IV 10/14/24 23:59 INFUSION [place] IV Miscellaneous Supplies 1 each 10/14/24 06:00 Iv Access IV 10/14/24 23:59 DIRECTED [place] Sodium Chloride 0 ml 10/14/24 06:00 Normal Saline Flush 10 Ml Syr IV 10/14/24 23:59 PRN PRN Sodium Chloride 0 ml 10/14/24 06:00 Normal Saline 10 Ml Vial IJ 10/14/24 23:59 DIRECTED PRN Sterile Water 0 ml 10/14/24 06:00 Water,Injection,Sterile 10 Ml Vial IJ 10/14/24 23:59 DIRECTED PRN PFSH Active Problems Active Problems: Problem Status Onset Code Encounter for screening colonoscopy Acute Z12.11 Tick-borne disease Acute B88.2 Dental infection Acute K04.7 Osteoarthritis of right hip Acute M16.11 Hearing loss Acute H91.90 Panic disorder Acute F41.0 Anxiety Chronic F41.9 Atrophic vaginitis Acute N95.2 Status post hysteroscopic polypectomy Acute Z98.890 Endometrial polyp Acute N84.0 Left ovarian cyst Acute N83.202 Colon polyp, hyperplastic Acute ~02/2020 K63.5 Right flank pain Acute R10.9 Complex renal cyst Acute N28.1 Chronic GERD Acute K21.9 Hiatal hernia Chronic K44.9 Postprandial RUQ pain Acute R10.11 Colon polyp Acute K63.5 Esophagitis Acute K20.90 Duodenitis Acute K29.80 Gastritis Acute K29.70 FH: colon cancer Acute Z80.0 Postmenopausal Acute Z78.0 Cervical polyp Acute N84.1 Medical History Medical History Constipation Hypercholesteremia Surgical History Surgical History History of colonoscopy (~02/28/20) History of esophagogastroduodenoscopy (EGD) (~02/28/20) Hx of repair of ear bone Tobacco Smoking/Tobacco Use Status: Never Passive smoking exposure: Yes Alcohol Alcohol Intake: current Alcohol intake frequency: a few times a week Substance Use Substance use: Never Substance use type: does not use Prental History History 2 Para 2 Hx # Term Pregnancies Multiple births Hx # Pregnancies Ectopic pregnancies AB induced Hx Number of Living Children 1 AB spontaneous Vital Signs and Lab Results Vital Signs Most Recent Vital Signs in EMR: Most Recent Vital Signs Temp Pulse Resp BP Pulse Ox 36.2 C L 73 18 130/87 96 10/14/24 08:33 10/14/24 08:33 10/14/24 08:33 10/14/24 08:33 10/14/24 08:33 Lab Results Complete Metabolic Panel: Sodium, (136-145) 140 mmol/L 09/19/24, 14:40 Potassium, (3.5-5.1) 4.0 mmol/L 09/19/24, 14:40 Chloride, (98-107) 103 mmol/L 09/19/24, 14:40 Carbon Dioxide, (21.0-32.0) 23.9 mmol/L 09/19/24, 14 :40 BUN, (7-18) 15 mg/dL 09/19/24, 14:40 Creatinine, (0.55-1.02) 0.6 mg/dL 09/19/24, 14:40 Est GFR (CKD-EPI 2020), (mL/min/1.73m2) 102.06 09/19/24, 14:40 Magnesium, (1.8-2.4) 2.3 mg/dL 09/19/24, 14:40 Calcium, (8.5-10.1) 9.5 mg/dL 09/19/24, 14:40 Glucose, (74-106) 96 mg/dL 09/19/24, 14:40 Imaging and Studies Imaging and Studies Study information below may be from another EMR and interpreted by another provider. Please see original notes in EMR for more complete details. EKG Summary: 09/09/24 NSR rate 97 Anesthesia Assessment and Plan Anesthesia History Personal History: No History of Anesthesia Complications Family History: No Family History of Anesthesia Complications Exercise Tolerance Exercise Tolerance: Metabolic Equivalents>4 Pertinent Negatives Pertinent Negatives: No Major Cardiovascular Symptoms or Complaints and No Major Pulmonary Symptoms or Complaints Cardiac & Pulmonary Exam Cardiac Exam: Normal S1/S2 Heart Sounds Pulmonary Exam: Clear Bilateral Breath Sounds Implantable Cardiac Device Does patient have a Pacemaker or an ICD?: No Airway Exam Known Difficult Airway: No Mallampati Class: 2 Mouth Opening: Narrow (< 3cm) Thyromental Distance: Greater than 3 cm Neck Range of Motion: Full ROM Neck Circumference: Normal Teeth Condition: Normal Dentition ASA Classification ASA Score: ASA 2 Emergency Case?: No NPO Status NPO Status: NPO Clears >2 hours, Solids >8 hours Anesthesia Plan Resuscitation Status: Full Code Anesthesia Technique: General Anesthesia Airway Planned: Natural Airway Monitors Used: Standard Monitors
[2024-10-14] MEDS: Lactated Ringers 1,000 ML 80 ML IV (09:10)
[2024-10-14 09:27] VITALS: BMI 24.8
--- NOTE | 2024-10-14 10:07 | STOM_PTH ---
PATIENT: Jaymie Decker LOC: [facility] U#:[id number] AGE/SX: 59/F ROOM: RE10/14/[address]: Napoleon Whipple MD : [id number] BED: DIS: 10/14/2024 SPEC #: [id number] RECD: 10/14/24 13:00 STATUS: JENNIFER RE #: [id number] JAMAL: 10/14/24 10:[address]: Napoleon Whipple DEPT: Surgical Specimen RECD BY: Judy Lyn ENTERED: 10/14/24 13:01 SP TYPE: STOMACH OTHR DR: Lenore Payne Tissues: 1 - STOMACH BIOPSY 2 - STOMACH BIOPSY 3 - ESOPHAGUS BIOPSY 4 - ESOPHAGUS BIOPSY Procedures: GROSS AND MICRO LEVEL 4 IMMUNOPEROXIDASE STAIN SPECIAL STAIN 1 Comments: [id number]
[2024-10-14 10:36] VITALS: BP 127/74; PULSE 70; RESP 16; TEMP 36.3; O2SAT 96
[2024-10-14 11:04] VITALS: BP 142/88; PULSE 69; RESP 16; TEMP 36.3; O2SAT 99
--- NOTE | 2024-10-14 11:09 | W.ANESPOSTOP ---
Postoperative Evaluation Date, Time and Location Date Performed: 10/14/24 Time Performed: 10:57 Patient Location: Day Surgery Unit Vital Signs Most Recent Imported Vital Signs: Most Recent Vital Signs Temp Pulse Resp BP Pulse Ox 36.3 C L 70 16 127/74 96 10/14/24 10:36 10/14/24 10:36 10/14/24 10:36 10/14/24 10:36 10/14/24 10:36 Pain Score Most Recent Pain Score: Most Recent Pain Score Pain Level 0 10/14/24 10:36 Assessment Mental Status: Awake (Alert & Oriented to Patient Baseline) Airway and Respiratory Function: Patent airway with normal (patient baseline) respiratory exam Cardiovascular Function: Hemodynamically Stable Hydration Status: Adequately Hydrated Nausea & Vomiting: No Nausea or Vomiting Pain: Pt. Denies Any Pain Peripheral Nerve Block: Patient did not receive a nerve block
== END 2024-10-14 11:21 | disposition home or self-care (01) ==
LOC: SUR 08:26
PROVIDERS: PCP Family Medicine; Visit Provider Surgery
PROC: (CPT 43239; principal; 2024-10-14 09:45)
DX: Z12.11 Encounter for screening for malignant neoplasm of colon (principal); R13.10 Dysphagia, unspecified; K20.90 Esophagitis, unspecified without bleeding; K31.9 Disease of stomach and duodenum, unspecified
CPT/HCPCS: 43239; 45378; 88305; 88312; 88361; J2003; J2405; J2704

== ENCOUNTER 2024-12-17 16:01 | Outpatient (REF) | payer OTHER, SELFPAY ==
[2024-12-17 17:59] LABS: Glucose Negative (Negative)
[2024-12-17 18:05] LABS: C & S Indicated? No; RBC Negative HPF (0-2)
== END 2024-12-17 16:02 | disposition home or self-care (01) ==
LOC: NCHCN 16:01
PROVIDERS: PCP Family Medicine; Visit Provider Nurse Practitioner Gerontology
DX: R31.29 Other microscopic hematuria (principal); R82.89 Other abnormal findings on cytological and histological examination of urine; B96.29 Other Escherichia coli [E. coli] as the cause of diseases classified elsewhere
CPT/HCPCS: 81003; 81015

== ENCOUNTER 2025-02-28 05:09 | Emergency (ER) | payer OTHER, SELFPAY ==
[2025-02-28] VITALS (65 sets, daily range): BP systolic 83–180; BP diastolic 47–132; PULSE 68–121; RESP 12–34; TEMP 36.1; O2SAT 95–100
--- NOTE | 2025-02-28 05:00 | RT.EKG_ITS ---
APPROVED REPORT Exam: Resting ECG Reason for Exam: [facility] Patient Location: E HR:101 bpm ECG Measurements Heart Rate 101 AXIS CA 152 P 110 QRSd 100 QRS 22 QT 429 T 78 QTc 558 Conclusion Sinus tachycardia...rate> 99 Prolonged QT interval...QTc >500mS no ST segment or T wave abnormalities to suggest occlusive MD
[2025-02-28 05:28] LABS: BE (Venous) -7 mmol/L (-2-3); HCO3 (Venous) 18 mmol/L (23-28); O2 Sat (Venous) 51 %; TCO2 (Venous) 16 mmol/L (24-29); pCO2 (Venous) 33 mmHg (41-51); pO2 (Venous) 29 mmHg
[2025-02-28] MEDS: LORazepam 2 MG/ML VIAL IVP (05:30)
[2025-02-28 05:31] LABS: Abs Immature Grans 0.03 10^3/uL (0.0-0.06); HCT 42.3 % (36.0-46.0); HGB 14.7 g/dL (11.2-15.7); Immature Grans % 0.4 %; MCH 32.0 pg (27.0-33.0); MCHC 34.8 % (32.0-36.0); MCV 92 fL (80-95); MPV 10.0 fL (8.0-11.0); Platelet Count 249 10^3/uL (130-400); RBC 4.59 10^6/uL (3.93-5.22); RDW 11.9 % (11.7-14.6); RDW-SD 39.8 fL; WBC 8.18 10^3/uL (4.4-10.8)
[2025-02-28] MEDS: levETIRAcetam 2,000 MG in Normal Saline 100 ML 400 MG IVPB (05:38)
[2025-02-28] MEDS: LORazepam 2 MG/ML VIAL (05:45)
[2025-02-28] MEDS: Midazolam 10 MG/2 ML VIAL NS ×3 (05:48→07:02)
[2025-02-28 05:57] LABS: Magnesium 1.8 mg/dL (1.6-2.6); Troponin I 4 ng/L (<35)
--- NOTE | 2025-02-28 05:57 | DI.CT_ITS ---
Exam(s) CT HEAD WO EXAM: CT HEAD WO CLINICAL HISTORY: seizure. TECHNIQUE: Imaging Protocol: Axial computed tomography images with coronal and sagittal reformatted images were created and reviewed COMPARISON: No exams were available for comparison FINDINGS: There are no skull fractures. There is no fluid in the visualized paranasal sinuses. There is subtle hyperdensity in the posterior temporal in except lobes, more so than right. Cannot exclude possibility of subtle subarachnoid hemorrhage. IMPRESSION: As above. Recommend MRI. Preliminary virtual Radiology report was reviewed. RADIATION DOSE DELIVERED: 845.68mGy.cm Total DLP DATA REPOSITORY: All CT scans at this facility are submitted to the National Radiology Data Registry (NRDR) Dose Index Registry (DIR) with the [employer] (ACR). RADIATION OPTIMIZATION: All CT scans at this facility use at least one of these dose optimization techniques: automated exposure control; mA and/or kV adjustment per patient size (includes targeted exams where dose is matched to clinical indication); or iterative reconstruction.
[2025-02-28 06:00] LABS: TSH (W/Ref FT4) 3.09 uIU/mL (0.55-4.78)
[2025-02-28 06:01] LABS: ALT 39 U/L (10-49); AST 45 U/L (<34); Acetaminophen < 2 ug/mL (10-20); Albumin 4.9 g/dL (3.2-5.0); Alkaline Phosphatase 86 U/L (46-116); Anion Gap 21.2 mmol/L (3-11); BUN 17 mg/dL (9-23); Bilirubin, Total 0.90 mg/dL (0.2-1.2); CO2 18.1 mmol/L (20.0-31.0); Calcium 9.8 mg/dL (8.3-10.6); Chloride 98 mmol/L (98-107); Glucose 212 mg/dL (74-106); Potassium 2.6 mmol/L (3.5-5.1); Salicylate < 3.0 mg/dL (<30.0); Sodium 137 mmol/L (136-145); Total Protein 8.5 g/dL (5.7-8.2)
[2025-02-28] MEDS: MAGNESIUM SULFATE 1 GM/100 ML BAG IV_INF (06:04)
--- NOTE | 2025-02-28 06:08 | DI.VRAD_ITS ---
Addendum created by Robin Hale MD on 02/28/2025 6:10:38 AM EST: ADDENDUM: THIS REPORT CONTAINS FINDINGS THAT MAY BE CRITICAL TO PATIENT CARE. The findings were verbally communicated via telephone conference with ROSA Coy at 6:10 AM EST on 02/28/2025. The findings were acknowledged and understood. Initial report created on 02/28/2025 6:08:21 AM EST: PROCEDURE INFORMATION: Exam: CT Head Without Contrast Exam date and time: 02/28/2025 5:32 AM Age: 60 years old Clinical indication: Stroke-like symptoms; Altered mental status/memory loss and other: Seizure TECHNIQUE: Imaging protocol: Computed tomography of the head without contrast. Radiation optimization: All CT scans at this facility use at least one of these dose optimization techniques: automated exposure control; mA and/or kV adjustment per patient size (includes targeted exams where dose is matched to clinical indication); or iterative reconstruction. Other technique: STROKE PROTOCOL was implemented. COMPARISON: NM BONE SCAN WHOLE BODY GRP 03/09/2023 2:07 PM FINDINGS: Brain: There is mild diffuse cerebral atrophy present, consistent with this patient's age. There is mildly heterogeneous attenuation with ill-defined areas of low attenuation and loss of emanuel-white matter differentiation in the occipital lobes, left greater than right, for example on images 7:33 and 5:61. There is mild hyperdensity in the sulci of the left posterior temporal and occipital lobes, for example on images 7:30 and 5:58. No significant mass effect or midline shift. Cerebral ventricles: No ventriculomegaly. Paranasal sinuses: Mild mucosal thickening in the left maxillary sinus. No air-fluid levels. Mastoid air cells: Visualized mastoid air cells are well aerated. Bones: Unremarkable. No acute fracture. Soft tissues: Unremarkable. IMPRESSION: Mildly heterogeneous attenuation with ill-defined areas of low attenuation and loss of emanuel-white matter differentiation in the occipital lobes, left greater than right. Differential considerations include acute infarcts, posterior reversible encephalopathy syndrome (PRES), encephalitis, and status epilepticus. Mild hyperdensity in the sulci of the left posterior temporal and occipital lobes, concerning for small amount of acute subarachnoid hemorrhage. Suggest further assessment with MRI brain without and with contrast. ASSESSMENT: ASPECTS ([place] Stroke Program Early CT Score) is 10. Dictated and Authenticated by: Robin Hale MD. Orderin Maxim Giles MD
--- NOTE | 2025-02-28 06:09 | W.ED.GENAD ---
Discharge Plan Discharge Details Chief Complaint: AMS/LOC Primary Care Provider: Lenore Payne ED Provider: Tisha Pan Home Meds and New Rx's Prescriptions: No Action pantoprazole [Protonix] 40 mg tablet,delayed release (DR/EC) 40 mg PO BID Qty: 60 2RF sucralfate 1 gram tablet 1 g PO QID Qty: 120 0RF trazodone 50 mg tablet 50 mg PO QHS PRN citalopram 10 mg tablet 20 mg PO DAILY Patient Comments: TAKE TWO TABLETS BY MOUTH EVERY MORNING ondansetron 4 mg tablet,disintegrating 4 mg PO Q8H PRNQty: 14 0RF pravastatin 20 mg tablet 20 mg PO DAILY Patient Comments: TAKE ONE TABLET BY MOUTH EVERY DAY HPI General Mode of arrival: ambulatory. Date/Time Provider Initiated Documentation: 02/28/25 05:17. Limitations to Documentation: altered mental status. Information obtained by: family. HPI Narrative: 60yo Related Data Home Medications ?Medication ?Instructions ?Recorded ?Confirmed trazodone 50 mg tablet 50 mg PO QHS PRN 03/26/24 02/07/25 citalopram 10 mg tablet 20 mg PO DAILY 08/26/24 02/07/25 ondansetron 4 mg disintegrating 4 mg PO Q8H PRN #14 tabs 09/11/24 02/07/25 tablet pravastatin 20 mg tablet 20 mg PO DAILY 10/11/24 02/07/25 pantoprazole 40 mg tablet,delayed 40 mg PO BID #60 tabs 02/07/25 02/07/25 release (Protonix) sucralfate 1 gram tablet 1 g PO QID #120 tabs 02/07/25 02/07/25 Previous Rx's ?Medication ?Instructions ?Recorded ondansetron 4 mg disintegrating 4 mg PO Q8H PRN #14 tabs 09/11/24 tablet pantoprazole 40 mg tablet,delayed 40 mg PO BID #60 tabs 02/07/25 release (Protonix) sucralfate 1 gram tablet 1 g PO QID #120 tabs 02/07/25 Allergies Allergy/AdvReac Type Severity Reaction Status Date / Time No Known Allergies Allergy Verified 02/28/25 05:17 General Stated Complaint: AMS/LOC TWIN: 3 Review of Systems Narrative: see HPI Course Vital Signs Vital signs: Vital Signs Temperature 36.1 C L 02/28/25 05:12 Pulse 121 H 02/28/25 05:12 Respiratory Rate 18 02/28/25 05:12 Blood Pressure 136/90 02/28/25 05:12 Pulse Oximetry 98 02/28/25 05:12 Temperature 36.1 C L 02/28/25 05:12 Temperature Source Tympanic 02/28/25 05:12 Pulse 121 H 02/28/25 05:12 Respiratory Rate 20 02/28/25 05:20 Respiratory Effort Non-Labored 02/28/25 05:20 Blood Pressure 136/90 02/28/25 05:12 Pulse Oximetry 98 02/28/25 05:12 Oxygen Delivery Method Room Air 02/28/25 05:12 Oxygen Flow Rate 0 02/28/25 05:12 Pain Level 0 02/28/25 05:12 Lab/Test Results Lab/Test Results: 02/28/25 05:17 Blood Blood Culture - Pending 02/28/25 05:17 Blood Blood Culture - Pending Laboratory Tests Range/Units 02/28/25 02/28/25 05:21 05:31 WBC (4.4-10.8) 10^3/uL 8.18 RBC (3.93-5.22) 10^6/uL 4.59 Hgb (11.2-15.7) g/dL 14.7 Hct (36.0-46.0) % 42.3 MCV (80-95) fL 92 MCH (27.0-33.0) pg 32.0 MCHC (32.0-36.0) % 34.8 RDW (11.7-14.6) % 11.9 Plt Count (130-400) 10^3/uL 249 MPV (8.0-11.0) fL 10.0 Immature Gran % % 0.4 Neutrophils % % 81.0 Lymphocytes % % 11.6 Monocytes % % 6.8 Eosinophils % % 0.0 Basophils % % 0.2 Nucleated RBC % (0.0-0.3) % 0.0 Absolute Neutrophils (1.2-6.7) 10^3/uL 6.62 Absolute Lymphocytes (1.2-3.4) 10^3/uL 0.95 L Absolute Monocytes (0.1-0.8) 10^3/uL 0.56 Absolute Eosinophils (0.0-0.7) 10^3/uL 0.00 Absolute Basophils (0.0-0.2) 10^3/uL 0.02 VBG pH (7.31-7.41) 7.35 VBG pCO2 (41-51) mmHg 33 L VBG pO2 mmHg 29 VBG HCO3 (23-28) mmol/L 18 L VBG Total CO2 (24-29) mmol/L 16 L VBG O2 Saturation % 51 VBG Base Excess (-2-3) mmol/L -7 L VBG Lactate (<or=2.0) mmol/L 7.6 H* Sodium (136-145) mmol/L 137 Potassium (3.5-5.1) mmol/L 2.6 L* Chloride (98-107) mmol/L 98 Carbon Dioxide (20.0-31.0) mmol/L 18.1 L Anion Gap (3-11) mmol/L 21.2 H BUN (9-23) mg/dL 17 Creatinine (0.55-1.02) mg/dL 0.85 Est GFR (CKD-EPI 2020) (mL/min/1.73m2) 67.75 Glucose (74-106) mg/dL 212 H Calcium (8.3-10.6) mg/dL 9.8 Magnesium (1.6-2.6) mg/dL 1.8 Total Bilirubin (0.2-1.2) mg/dL 0.90 AST (<34) U/L 45 H ALT (10-49) U/L 39 Alkaline Phosphatase (46-116) U/L 86 Troponin I (<35) ng/L 4 Cancelled NT-Pro-B Natriuret Pep (<300) pg/mL 125 Total Protein (5.7-8.2) g/dL 8.5 H Albumin (3.2-5.0) g/dL 4.9 TSH (0.55-4.78) uIU/mL 3.09 Salicylates (<30.0) mg/dL < 3.0 Acetaminophen (10-20) ug/mL < 2 L Ethyl Alcohol (<3) mg/dL < 3.0 Medical Decision Making occiptal attentuation nonspecifc ? [facility] All Active Problems (Updated 02/07/25 @ 15:05 by Parker Mercado MD) Acid reflux disease with ulcer (Acute) Incontinence (Acute) Incomplete emptying of bladder (Acute) Tick-borne disease (Acute) Dental infection (Acute) Osteoarthritis of right hip (Acute) POCUS injection: 08/08/2024 Hearing loss (Acute) Panic disorder (Acute) Anxiety (Chronic) Atrophic vaginitis (Acute) Status post hysteroscopic polypectomy (Acute) Endometrial polyp (Acute) Left ovarian cyst (Acute) Colon polyp, hyperplastic (Acute ~02/2020) Right flank pain (Acute) Complex renal cyst (Acute) Chronic GERD (Acute) Hiatal hernia (Chronic) Postprandial RUQ pain (Acute) Colon polyp (Acute) Esophagitis (Acute) Duodenitis (Acute) Gastritis (Acute) FH: colon cancer (Acute) Postmenopausal (Acute) Cervical polyp (Acute) Medical History Constipation Hypercholesteremia Surgical History History of colonoscopy (~09/2024) History of esophagogastroduodenoscopy (EGD) (~09/2024) biopsies taken Hx of repair of ear bone Family History Mother Pancreatic cancer Father Bowel cancer Social History Smoking/Tobacco Use Status: Never Smoking risk assessment performed?: Yes Alcohol Intake: current Alcohol Intake frequency: a few times a week Drug use: Never Substance use type: does not use Household members: spouse and other Details: 2 sons, one lives in [place] and the other in a [place] Housing: house Sexually active: Yes Do you think of yourself as: straight/heterosexual Current gender identity: female Do you feel safe at home: Yes Do you feel safe in your relationship?: Yes History History 2 Para 2 Hx # Term Pregnancies Multiple births Hx # Pregnancies Ectopic pregnancies AB induced Hx Number of Living Children 1 AB spontaneous
[2025-02-28] MEDS: POTASSIUM CHLORIDE 20 MEQ/100 ML BAG 50 MEQ IV_INF ×2 (06:13→08:55)
[2025-02-28 06:16] LABS: INR 1.2 (0.9-1.1); PTT Activated 21.0 sec (20.6-30.2); Prothrombin Time 11.9 sec (9.1-11.1)
[2025-02-28 06:25] LABS: Ammonia 46 umol/L (11-32)
[2025-02-28 06:26] LABS: Procalcitonin < 0.10 ng/mL
[2025-02-28] MEDS: Sodium Bicarbonate 50 MEQ/50 ML SYR 25 MEQ IVP (07:03)
[2025-02-28] MEDS: Succinylcholine 100 MG/5 ML SYR (07:04)
[2025-02-28] MEDS: MIDAZOLAM 50 MG in Normal Saline 90 ML 14.2 MG IV_INF (07:06)
[2025-02-28] MEDS: Midazolam 10 MG/10 ML 15 MG IVP (07:14)
[2025-02-28] MEDS: fentaNYL 100 MCG/2 ML VIAL (07:20)
[2025-02-28 07:28] LABS: Lab Add On Test DONE
[2025-02-28 07:32] LABS: Troponin I 4 ng/L (<35)
[2025-02-28 07:44] LABS: Creatine Kinase 330 U/L (34-145); Potassium 2.6 mmol/L (3.5-5.1)
--- NOTE | 2025-02-28 07:54 | DI.RAD_ITS ---
Exam(s) XR PORTABLE CHEST AP EXAM: XR PORTABLE CHEST AP CLINICAL HISTORY: tube check. On ventilator TECHNIQUE: 2D digital imaging was performed. COMPARISON: No exams were available for comparison FINDINGS: Single AP portable view. The distal tip of the endotracheal tube is above the celina at the clavicular level. Heart size is upper normal. The mediastinum is not widened. Lungs are clear. No infiltrates nor obvious pleural effusions. IMPRESSION: No acute pulmonary findings on this single AP portable view of the chest. Endotracheal tube distal tip is above the celina at the clavicular level. DATA REPOSITORY: RADIATION DOSE DELIVERED:
[2025-02-28] MEDS: PROPOFOL 1,000 MG/100 ML BTL 12.6 MG (07:55)
[2025-02-28] MEDS: Dexamethasone 10 MG/ML VIAL IVP (07:55)
[2025-02-28] MEDS: CEFEPIME 2 GM in Normal Saline 50 ML IVPB (07:57)
--- NOTE | 2025-02-28 08:03 | ED.GENADUL_ITS ---
Discharge Plan Disposition Patient Disposition: Transfer-Acute Inpatient Care Condition: Critical Discharge Details Clinical Impression: Status epilepticus, Hypokalemia, Metabolic acidosis, Endotracheally intubated Primary Care Provider: Lenore Payne ED Provider: Tisha Pan Home Meds and New Rx's Prescriptions: No Action pantoprazole [Protonix] 40 mg tablet,delayed release (DR/EC) 40 mg PO BID Qty: 60 2RF sucralfate 1 gram tablet 1 g PO QID Qty: 120 0RF trazodone 50 mg tablet 50 mg PO QHS PRN citalopram 10 mg tablet 20 mg PO DAILY Patient Comments: TAKE TWO TABLETS BY MOUTH EVERY MORNING ondansetron 4 mg tablet,disintegrating 4 mg PO Q8H PRNQty: 14 0RF pravastatin 20 mg tablet 20 mg PO DAILY Patient Comments: TAKE ONE TABLET BY MOUTH EVERY DAY HPI General Mode of arrival: ambulatory . Date/Time Provider Initiated Documentation: 02/28/25 05:17 . Limitations to Documentation: altered mental status . Information obtained by: family . HPI Narrative: 60yo F with hx GERD, no prior history of seizures, presenting with for concern for seizure. reports that about one hour prior to arrival patient had whole-body convulsions for a minute or two and then seemed out of it. He got her dressed and put her in the car and drove to the ED. She has been confused and not acting normally since then. He does not think she had any other seizures. She has complained of a headache for the past 4 or 5 days. She has had some nasuea and vomiting over the past week but that is not unusual for her. She did fall on the stairs a few days ago and landed on her backside; did not strike her head at that time. No fevers, chills, rash, cough, abdominal pain, diarrhea, or other concerns per . Related Data Home Medications ?Medication ?Instructions ?Recorded ?Confirmed trazodone 50 mg tablet 50 mg PO QHS PRN 03/26/24 citalopram 10 mg tablet 20 mg PO DAILY 08/26/2401/25 ondansetron 4 mg disintegrating 4 mg PO Q8H PRN #14 ta bs 09/11/24 02/07/25 tablet pravastatin 20 mg tablet 20 mg PO DAILY 10/11/2401/25 pantoprazole 40 mg tablet,delayed 40 mg PO BID #60 tab s 02/07/25 02/07/25 release (Protonix) sucralfate 1 gram tablet 1 g PO QID #120 tabs 5 02/07/25 Previous Rx's ?Medication ?Instructions ?Recorded ondansetron 4 mg disintegrating 4 mg PO Q8H PRN #14 ta bs 09/11/24 tablet pantoprazole 40 mg tablet,delayed 40 mg PO BID #60 tab s 02/07/25 release (Protonix) sucralfate 1 gram tablet 1 g PO QID #120 tabs 5 Allergies Allergy/AdvReac Type Severity Reaction Status Date / Time No Known Allergies Allergy Verified 02/28/25 05:17 General Stated Complaint: AMS/LOC TWIN: 3 Review of Systems Narrative: see HPI Unobtainable due to mental condition Exam Narrative Exam Narrative: GENERAL: SKIN: Warm and well perfused. Bruising to buttocks/LLE HEAD: Atraumatic, normocephalic without edema, discoloration or evidence of trauma. Facial bones without deformities or tenderness. EYES: PERRL. No scleral icterus or conjunctival injection. Extraocular muscles intact without nystagmus or diplopia. No proptosis or enophthalmos. EARS: Normal appearing pinnae. No hemotympanum. NOSE: No discharge, tenderness, laxity. No nasal septal hematoma. MOUTH: No malocclusion or trismus. Moist mucus membranes without blood. Posterior pharynx without erythema or exudate. NECK: Trachea midline. No discolorations or edema. Neck immobilized in cervical collar. CV: Regular rate and rhythm, Normal s1 and s2. No murmurs, rubs, or gallops. PV: Radial pulses 2+ bilaterally and symmetric. Dorsalis pedis pulses 2+ bilaterally and symmetric. 2+ capillary refill. No extremity edema. CHEST: No abrasions or ecchymosis. Chest symmetric with respirations. No chest wall tenderness. No crepitus. No step offs. Lungs are clear to auscultation bilaterally. ABDOMEN: No ecchymosis or abrasions. Soft, nondistended, nontender. Bowel tones normoactive. No masses or organomegaly. BACK: No abrasions, skin openings, or ecchymosis. Spine without bony tenderness, no step offs. PELVIC: Pelvis stable, nontender to lateral compression and palpation of symphysis pubis. RECTAL: Normal tone. Stool without gross blood. : Normal external genitalia without blood at meatus. No ecchymosis or edema. MSK: No gross deformities or discolorations or lesions. Tolerates full range of motion of extremities without tenderness. NEURO: ? GCS 13 (E4 V5 M5)? PERRL.? EOMI.? Somewhat dysarthric . No facial asymetry. Motor- 5/5 strength symmetric bilateral upper and lower extremities Sensation- ?Intact to noxious stimuli all 4 extremities Reflexes- 2/4 achilles & patellar, no clonus Gait/station: ?Not tested Course Vital Signs Vital signs: Vital Signs Temperature 36.1 C L 02/28/25 05:12 Pulse 121 H 02/28/25 05:12 Respiratory Rate 18 02/28/25 05:12 Blood Pressure 136/90 02/28/25 05:12 Pulse Oximetry 98 02/28/25 05:12 Temperature 36.1 C L 02/28/25 05:12 Temperature Source Tympanic 02/28/25 05:12 Pulse 103 H 02/28/25 07:11 Pulse 103 H 02/28/25 07:11 Respiratory Rate 14 02/28/25 07:35 Respiratory Effort Non-Labored 02/28/25 05:20 Blood Pressure 180/132 H 02/28/25 07:11 Blood Pressure Mean 143 02/28/25 07:11 Pulse Oximetry 99 02/28/25 07:35 Respiratory End-tidal CO2 40 02/28/25 07:35 Oxygen Delivery Method Room Air 02/28/25 05:12 Oxygen Flow Rate 0 02/28/25 05:12 Fraction of Inspired Oxygen (FIO2) 21 02/28/25 07:35 Pain Level 0 02/28/25 05:12 Lab/Test Results Lab/Test Results: 02/28/25 07:51 Cerebrospinal Fluid Body Fluid Culture - Pending 02/28/25 07:51 Cerebrospinal Fluid Gram Stain - Pending 02/28/25 06:02 Blood Blood Culture - Pending 02/28/25 05:17 Blood Blood Culture - Pending Laboratory Tests Range/Units 02/28/25 02/28/25 02/28/25 05:21 05:31 06:02 WBC (4.4-10.8) 10^3/uL 8.18 RBC (3.93-5.22) 10^6/uL 4.59 Hgb (11.2-15.7) g/dL 14.7 Hct (36.0-46.0) % 42.3 MCV (80-95) fL 92 MCH (27.0-33.0) pg 32.0 MCHC (32.0-36.0) % 34.8 RDW (11.7-14.6) % 11.9 Plt Count (130-400) 10^3/uL 249 MPV (8.0-11.0) fL 10.0 Immature Gran % % 0.4 Neutrophils % % 81.0 Lymphocytes % % 11.6 Monocytes % % 6.8 Eosinophils % % 0.0 Basophils % % 0.2 Nucleated RBC % (0.0-0.3) % 0.0 Absolute Neutrophils (1.2-6.7) 10^3/uL 6.62 Absolute Lymphocytes (1.2-3.4) 10^3/uL 0.95 L Absolute Monocytes (0.1-0.8) 10^3/uL 0.56 Absolute Eosinophils (0.0-0.7) 10^3/uL 0.00 Absolute Basophils (0.0-0.2) 10^3/uL 0.02 PT (9.1-11.1) sec 11.9 H INR (0.9-1.1) 1.2 H APTT (20.6-30.2) sec 21.0 VBG pH (7.31-7.41) 7.35 VBG pCO2 (41-51) mmHg 33 L VBG pO2 mmHg 29 VBG HCO3 (23-28) mmol/L 18 L VBG Total CO2 (24-29) mmol/L 16 L VBG O2 Saturation % 51 VBG Base Excess (-2-3) mmol/L -7 L VBG Lactate (<or=2.0) mmol/L 7.6 H* Sodium (136-145) mmol/L 137 Potassium (3.5-5.1) mmol/L 2.6 L* Chloride (98-107) mmol/L 98 Carbon Dioxide (20.0-31.0) mmol/L 18.1 L Anion Gap (3-11) mmol/L 21.2 H BUN (9-23) mg/dL 17 Creatinine (0.55-1.02) mg/dL 0.85 Est GFR (CKD-EPI 2020) (mL/min/1.73m2) 67.75 Glucose (74-106) mg/dL 212 H Calcium (8.3-10.6) mg/dL 9.8 Magnesium (1.6-2.6) mg/dL 1.8 Total Bilirubin (0.2-1.2) mg/dL 0.90 AST (<34) U/L 45 H ALT (10-49) U/L 39 Alkaline Phosphatase (46-116) U/L 86 Ammonia (11-32) umol/L 46 H Creatine Kinase (34-145) U/L Troponin I (<35) ng/L 4 Cancelled NT-Pro-B Natriuret Pep (<300) pg/mL 125 Total Protein (5.7-8.2) g/dL 8.5 H Albumin (3.2-5.0) g/dL 4.9 Procalcitonin ng/mL < 0.10 TSH (0.55-4.78) uIU/mL 3.09 Salicylates (<30.0) mg/dL < 3.0 Acetaminophen (10-20) ug/mL < 2 L Ethyl Alcohol (<3) mg/dL < 3.0 Add-On Test Request Range/Units 02/28/25 02/28/25 06:57 07:11 WBC (4.4-10.8) 10^3/uL RBC (3.93-5.22) 10^6/uL Hgb (11.2-15.7) g/dL Hct (36.0-46.0) % MCV (80-95) fL MCH (27.0-33.0) pg MCHC (32.0-36.0) % RDW (11.7-14.6) % Plt Count (130-400) 10^3/uL MPV (8.0-11.0) fL Immature Gran % % Neutrophils % % Lymphocytes % % Monocytes % % Eosinophils % % Basophils % % Nucleated RBC % (0.0-0.3) % Absolute Neutrophils (1.2-6.7) 10^3/uL Absolute Lymphocytes (1.2-3.4) 10^3/uL Absolute Monocytes (0.1-0.8) 10^3/uL Absolute Eosinophils (0.0-0.7) 10^3/uL Absolute Basophils (0.0-0.2) 10^3/uL PT (9.1-11.1) sec INR (0.9-1.1) APTT (20.6-30.2) sec VBG pH (7.31-7.41) VBG pCO2 (41-51) mmHg VBG pO2 mmHg VBG HCO3 (23-28) mmol/L VBG Total CO2 (24-29) mmol/L VBG O2 Saturation % VBG Base Excess (-2-3) mmol/L VBG Lactate (<or=2.0) mmol/L Sodium (136-145) mmol/L Potassium (3.5-5.1) mmol/L 2.6 L* Chloride (98-107) mmol/L Carbon Dioxide (20.0-31.0) mmol/L Anion Gap (3-11) mmol/L BUN (9-23) mg/dL Creatinine (0.55-1.02) mg/dL Est GFR (CKD-EPI 2020) (mL/min/1.73m2) Glucose (74-106) mg/dL Calcium (8.3-10.6) mg/dL Magnesium (1.6-2.6) mg/dL Total Bilirubin (0.2-1.2) mg/dL AST (<34) U/L ALT (10-49) U/L Alkaline Phosphatase (46-116) U/L Ammonia (11-32) umol/L Creatine Kinase (34-145) U/L 330 H Troponin I (<35) ng/L 4 NT-Pro-B Natriuret Pep (<300) pg/mL Total Protein (5.7-8.2) g/dL Albumin (3.2-5.0) g/dL Procalcitonin ng/mL TSH (0.55-4.78) uIU/mL Salicylates (<30.0) mg/dL Acetaminophen (10-20) ug/mL Ethyl Alcohol (<3) mg/dL Add-On Test Request DONE Procedure Airway Management Date of Procedure: 02/28/25 Time of Procedure: 07:05 Patient Consented: Written and Emergent Case Indication: Reduced level of consciousness and Other (status epilepticus) Provider that performed the procedure: Tisha Pan Mallampati Class: Unable to Assess Induction setup: Pt. evaluated prior to induction, Pt. Ramped, Head of Bed Elevated, Apneic Oxygenation, NRB - High Flow and Rapid Sequence Induction Airway Type: Intubation Grade: Pre Treatment Medication(indicate dose given): Other (bicarb 25) Paralytic(indicate dose given): Succinylcholine (100) Vasoactive Medication(indicate dose given): Norepinephrine (at bedside; not administered) Post Induction Medication Management(indicate dose given): Versed IV Gastric Tube: Placed by Other Person Procedure Complications: None Procedure Outcome: Successful Lumbar Puncture Date of Procedure: 02/28/25 Time of procedure: 07:30 Provider that performed the procedure: Tisha Pan Indication: Diagnostic Patient Consented: Written () and Emergent Case Standard Time Out Performed: Yes Sterility: Sterile Placement Site: L4-L5 Interspace Spinal Needle Type: Pratima 25 Gauge Needle Length: 3.5 inch Lumbar Puncture Procedure: Site Prepped, Sterile Drape Placed, Spinal Needle Placed, Negative Heme, Positive CSF Flow and Specimen Labeled, Sent to Lab Patient Position: Lateral decubitus Number of Attempts(see previous attempts in note section): 1 Opening CSF Pressure(cmH20): 12 Ultrasound: Not used Dressing: Other (bandaid) Procedure Tolerated: No Complications Procedure Outcome: Successful Medical Decision Making 60yo F with hx GERD, no prior history of seizures, presenting with for concern for seizure. reports that about one hour prior to arrival patient had whole-body convulsions for a minute or two and then seemed out of it. She has been confused and not acting normally since then. Of note, had a CONNORS for the past 4-5 days and some N/V which reports is more chronic. Intitial eval and resus: GCS 13 on arrival, appears somewhat post-ictal, not following commands. 2mg of Ativan ordered on arrival to allow for toleration of CT. Prior to administration pt had a generalized tonic-clonic seizure lasting approximately 1 minute which terminated without intervention; ativan given immediately afterward and 2g IV keppra ordered. Fingerstick blood glucose in 200's/ EKG shows sinus tachycardia with prolonged QTc, no acute ischemic changes. Added 2g IV magnesium. Patient accompanied to CT by myself and while in CT became agitated, not redirectable. Given an additional 2mg of IV ativan followed by 10 of midazalom with good effect. Returned to room, again became agitated and so additional 5mg midazlom given. Likelihood if needing intubation for status epilepticus discussed with at bedside who consents; will observe for clearing mental status and ideally await teleneurology evaluation prior to intubation. also consents to lumbar puncture and central line placement. CT head independently reviewed and discussed with reading [facility] radiologist: concern for PRES and questionable small SAH. ED Course: Labs resulted as below; CBC reassuring with no leukocytosis or anemia, CMP with marked hypokalemia at 2.6 (IV replacement ordered) and elevated anion gap, VBG with mild metabolic acidosis at 7.35 and lactate of 7.6 (consistent with seizure), cags with slightly elevated INR at 1.2, ammonia mildly elevated at 46, initial troponin 4, procal reassuring at <0.1, TSH normal. Serum tox negative and clinically not consistent with OD overdose on citalapram or trazadone (home meds). Teleneurology consulted (see their note for details); recommended 750mg keppra BID, MRI, stat EEG, agree with plan for LP. Patient intubated easily without complication using 20mg midazalom and 100mg sux; given 25 of bicarb during intubation given initial acidosis which I do not believe is likely to have been improved by her frequent doses of benzodiazapenes here prior to intubation. MAP >65 and O2 sat >95% throughout. Started on midazalom gtt post sedation; did require 100mcg fentanyl shortly after intubation for breakthrough. Post intubation CXR reviewed and tube advanced 3cm. LP performed post-intubation and CSF studies sent. D[place]ed with [facility] [place]; pt accepted under Dr. Lobo. Looking into [facility] for transport. Signed out to Dr. Dixon; plan for central line placement and transfer to [facility]. IMPRESSION: Mildly heterogeneous attenuation with ill-defined areas of low attenuation and loss of emanuel-white matter differentiation in the occipital lobes, left greater than right. Differential considerations include acute infarcts, posterior reversible encephalopathy syndrome (PRES), encephalitis, and status epilepticus. Mild hyperdensity in the sulci of the left posterior temporal and occipital lobes, concerning for small amount of acute subarachnoid hemorrhage. Suggest further assessment with MRI brain without and with contrast. Lab Data Lab results reviewed: Yes I reviewed the patient's lab results. Labs: 02/28/25 07:29 Cerebrospinal Fluid Body Fluid Culture - Pending 02/28/25 07:29 Cerebrospinal Fluid Gram Stain - Pending 02/28/25 06:02 Blood Blood Culture - Pending 02/28/25 05:17 Blood Blood Culture - Pending Laboratory Tests Range/Units 02/28/25 02/28/25 02/28/25 05:21 05:31 06:02 WBC (4.4-10.8) 10^3/uL 8.18 RBC (3.93-5.22) 10^6/uL 4.59 Hgb (11.2-15.7) g/dL 14.7 Hct (36.0-46.0) % 42.3 MCV (80-95) fL 92 MCH (27.0-33.0) pg 32.0 MCHC (32.0-36.0) % 34.8 RDW (11.7-14.6) % 11.9 Plt Count (130-400) 10^3/uL 249 MPV (8.0-11.0) fL 10.0 Immature Gran % % 0.4 Neutrophils % % 81.0 Lymphocytes % % 11.6 Monocytes % % 6.8 Eosinophils % % 0.0 Basophils % % 0.2 Nucleated RBC % (0.0-0.3) % 0.0 Absolute Neutrophils (1.2-6.7) 10^3/uL 6.62 Absolute Lymphocytes (1.2-3.4) 10^3/uL 0.95 L Absolute Monocytes (0.1-0.8) 10^3/uL 0.56 Absolute Eosinophils (0.0-0.7) 10^3/uL 0.00 Absolute Basophils (0.0-0.2) 10^3/uL 0.02 PT (9.1-11.1) sec 11.9 H INR (0.9-1.1) 1.2 H APTT (20.6-30.2) sec 21.0 VBG pH (7.31-7.41) 7.35 VBG pCO2 (41-51) mmHg 33 L VBG pO2 mmHg 29 VBG HCO3 (23-28) mmol/L 18 L VBG Total CO2 (24-29) mmol/L 16 L VBG O2 Saturation % 51 VBG Base Excess (-2-3) mmol/L -7 L VBG Lactate (<or=2.0) mmol/L 7.6 H* Sodium (136-145) mmol/L 137 Potassium (3.5-5.1) mmol/L 2.6 L* Chloride (98-107) mmol/L 98 Carbon Dioxide (20.0-31.0) mmol/L 18.1 L Anion Gap (3-11) mmol/L 21.2 H BUN (9-23) mg/dL 17 Creatinine (0.55-1.02) mg/dL 0.85 Est GFR (CKD-EPI 2020) (mL/min/1.73m2) 67.75 Glucose (74-106) mg/dL 212 H Calcium (8.3-10.6) mg/dL 9.8 Magnesium (1.6-2.6) mg/dL 1.8 Total Bilirubin (0.2-1.2) mg/dL 0.90 AST (<34) U/L 45 H ALT (10-49) U/L 39 Alkaline Phosphatase (46-116) U/L 86 Ammonia (11-32) umol/L 46 H Creatine Kinase (34-145) U/L Troponin I (<35) ng/L 4 Cancelled NT-Pro-B Natriuret Pep (<300) pg/mL 125 Total Protein (5.7-8.2) g/dL 8.5 H Albumin (3.2-5.0) g/dL 4.9 Procalcitonin ng/mL < 0.10 TSH (0.55-4.78) uIU/mL 3.09 Salicylates (<30.0) mg/dL < 3.0 Acetaminophen (10-20) ug/mL < 2 L Ethyl Alcohol (<3) mg/dL < 3.0 Add-On Test Request Range/Units 02/28/25 02/28/25 06:57 07:11 WBC (4.4-10.8) 10^3/uL RBC (3.93-5.22) 10^6/uL Hgb (11.2-15.7) g/dL Hct (36.0-46.0) % MCV (80-95) fL MCH (27.0-33.0) pg MCHC (32.0-36.0) % RDW (11.7-14.6) % Plt Count (130-400) 10^3/uL MPV (8.0-11.0) fL Immature Gran % % Neutrophils % % Lymphocytes % % Monocytes % % Eosinophils % % Basophils % % Nucleated RBC % (0.0-0.3) % Absolute Neutrophils (1.2-6.7) 10^3/uL Absolute Lymphocytes (1.2-3.4) 10^3/uL Absolute Monocytes (0.1-0.8) 10^3/uL Absolute Eosinophils (0.0-0.7) 10^3/uL Absolute Basophils (0.0-0.2) 10^3/uL PT (9.1-11.1) sec INR (0.9-1.1) APTT (20.6-30.2) sec VBG pH (7.31-7.41) VBG pCO2 (41-51) mmHg VBG pO2 mmHg VBG HCO3 (23-28) mmol/L VBG Total CO2 (24-29) mmol/L VBG O2 Saturation % VBG Base Excess (-2-3) mmol/L VBG Lactate (<or=2.0) mmol/L Sodium (136-145) mmol/L Potassium (3.5-5.1) mmol/L 2.6 L* Chloride (98-107) mmol/L Carbon Dioxide (20.0-31.0) mmol/L Anion Gap (3-11) mmol/L BUN (9-23) mg/dL Creatinine (0.55-1.02) mg/dL Est GFR (CKD-EPI 2020) (mL/min/1.73m2) Glucose (74-106) mg/dL Calcium (8.3-10.6) mg/dL Magnesium (1.6-2.6) mg/dL Total Bilirubin (0.2-1.2) mg/dL AST (<34) U/L ALT (10-49) U/L Alkaline Phosphatase (46-116) U/L Ammonia (11-32) umol/L Creatine Kinase (34-145) U/L 330 H Troponin I (<35) ng/L 4 NT-Pro-B Natriuret Pep (<300) pg/mL Total Protein (5.7-8.2) g/dL Albumin (3.2-5.0) g/dL Procalcitonin ng/mL TSH (0.55-4.78) uIU/mL Salicylates (<30.0) mg/dL Acetaminophen (10-20) ug/mL Ethyl Alcohol (<3) mg/dL Add-On Test Request DONE Critical Care Time Critical Care Time Critical Care Time: Yes Total Critical Care Time: 62 Attestation: Due to a high probability of clinically significant, life threatening deterioration, the patient required my highest level of preparedness to intervene emergently and I personally spent this critical care time directly and personally managing the patient. This critical care time included obtaining a history; examining the patient; pulse oximetry; ordering and review of studies; arranging urgent treatment with development of a management plan; evaluation of patient's response to treatment; frequent reassessment; and, discussions with other providers. This critical care time was performed to assess and manage the high probability of imminent, life-threatening deterioration that could result in multi-organ failure. It was exclusive of separately billable procedures and treating other patients PFSH All Active Problems (Updated 02/28/25 @ 08:50 by Tisha Pan MD) Endotracheally intubated (Acute) Metabolic acidosis (Acute) Hypokalemia (Acute) Status epilepticus (Acute) Acid reflux disease with ulcer (Acute) Incontinence (Acute) Incomplete emptying of bladder (Acute) Tick-borne disease (Acute) Dental infection (Acute) Osteoarthritis of right hip (Acute) POCUS injection: 08/08/2024 Hearing loss (Acute) Panic disorder (Acute) Anxiety (Chronic) Atrophic vaginitis (Acute) Status post hysteroscopic polypectomy (Acute) Endometrial polyp (Acute) Left ovarian cyst (Acute) Colon polyp, hyperplastic (Acute ~02/2020) Right flank pain (Acute) Complex renal cyst (Acute) Chronic GERD (Acute) Hiatal hernia (Chronic) Postprandial RUQ pain (Acute) Colon polyp (Acute) Esophagitis (Acute) Duodenitis (Acute) Gastritis (Acute) FH: colon cancer (Acute) Postmenopausal (Acute) Cervical polyp (Acute) Medical History Constipation Hypercholesteremia Surgical History History of colonoscopy (~09/2024) History of esophagogastroduodenoscopy (EGD) (~09/2024) biopsies taken Hx of repair of ear bone Family History Mother Pancreatic cancer Father Bowel cancer Social History Smoking/Tobacco Use Status: Never Smoking risk assessment performed?: Yes Alcohol Intake: current Alcohol Intake frequency: a few times a week Drug use: Never Substance use type: does not use Household members: spouse and other Details: 2 sons, one lives in [place] and the other in a [facility] Housing: house Sexually active: Yes Do you think of yourself as: straight/heterosexual Current gender identity: female Do you feel safe at home: Yes Do you feel safe in your relationship?: Yes History History 2 2 Para 2 Hx # Term Pregnancies Multiple births Hx # Pregnancies Ectopic pregnancies AB induced Hx Number of Living Children 1 AB spontaneous
[2025-02-28] MEDS: Normal Saline 1,000 ML 2000 ML IV (08:05)
[2025-02-28 08:40] LABS: WBC 0 /uL (0-5); Xanthochromia Absent
[2025-02-28] MEDS: HYDROmorphone 2 MG/ML SYR 1 MG IVP (08:40)
[2025-02-28 08:41] LABS: RBC 2 /mm3 (0-5)
--- NOTE | 2025-02-28 08:47 | W.EDPROG ---
Date of service: 02/28/25 Time of Service: 08:48 Medical Decision Making I received signout on this 60-year-old female with history of gastritis found altered with convulsions concerning for status. Patient received levetiracetam load, lumbar puncture with empiric coverage using cefepime and vancomycin with ampicillin added on for Listeria coverage and dexamethasone. Acyclovir added in the event that there is HSV encephalitis. CT scan concerning for PRES. CK added. Salicylates ethanol and acetaminophen are negative. I added on tickborne panel and Lyme titers. After meeting with the patient's and received written consent I performed a right IJ central venous catheter. Line confirmed on chest x-ray and bubble study at bedside. Patient excepted to [facility] signed out at bedside to [facility] crew. I updated patient's on plan for transfer to tertiary care. Procedure Central Line Placement Date of Procedure: 02/28/25 Time of Procedure: 08:50 Provider that performed the procedure: Ernesto Dixon Indication: Central venous access Patient Consented: Written Standard Time Out Performed: Yes Sterility: Sterile Pre Procedure Medication: Other (Patient on propofol drip) Laterality: Right Insertion Site: Internal Jugular (IJ) Central Line Type: 7 Polish Insertion Procedure: Vessel accessed with needle, Guidewire placed with ease, Dermatotomy (skin pedro) made with scalpel, Dilator placed without resistance, Introducer/Catheter placed without resistance, Guidewire removed and Claves placed, blood withdrawn, ports flushed and clamped Ultrasound: Used/Image Saved (Ultrasound used) Number of Attempts(see previous attempts in note section): 2 Post Procedure: good blood return, all ports aspirated, flushed, capped and sutured in place with nylon Post Procedure X-Ray: other (Bubble study confirmed) Dressing: Tegaderm applied and BioPatch applied Procedure Outcome: Successful Discharge Plan Disposition Patient Disposition: Transfer-Acute Inpatient Care Condition: Critical Discharge Details Clinical Impression: Status epilepticus, Hypokalemia, Metabolic acidosis, Endotracheally intubated Primary Care Provider: Lenore Payne ED Provider: Ernesto Dixon Home Meds and New Rx's Prescriptions: No Action pantoprazole [Protonix] 40 mg tablet,delayed release (DR/EC) 40 mg PO BID Qty: 60 2RF sucralfate 1 gram tablet 1 g PO QID Qty: 120 0RF trazodone 50 mg tablet 50 mg PO QHS PRN citalopram 10 mg tablet 20 mg PO DAILY Patient Comments: TAKE TWO TABLETS BY MOUTH EVERY MORNING ondansetron 4 mg tablet,disintegrating 4 mg PO Q8H PRNQty: 14 0RF pravastatin 20 mg tablet 20 mg PO DAILY Patient Comments: TAKE ONE TABLET BY MOUTH EVERY DAY
[2025-02-28 08:50] LABS: Glucose (CSF) 131 mg/dL (40-70)
[2025-02-28] MEDS: AMPICILLIN SODIUM 2 GM in Normal Saline 100 ML IVPB (08:53)
[2025-02-28 09:04] LABS: Total Protein (CSF) 69 mg/dL (15-45)
[2025-02-28] MEDS: ACYCLOVIR SODIUM 700 MG in Normal Saline 250 ML 250 MG IVPB (09:15)
[2025-02-28] MEDS: VANCOMYCIN/WATER (PEG) 1.5 GM/300 ML BAG IVPB (09:15)
--- NOTE | 2025-02-28 09:15 | DI.RAD_ITS ---
Exam(s) XR PORTABLE CHEST AP POST LINE EXAM: XR PORTABLE CHEST AP POST LINE CLINICAL HISTORY: Confirm line. TECHNIQUE: 2D digital imaging was performed. COMPARISON: CR XR PORTABLE CHEST AP from 02/28/2025 FINDINGS: Single AP portable view. The distal tip of the newly placed right jugular central line is in the right atrium. Distal tip of the endotracheal tube is above the celina the infraclavicular level. Heart size is upper normal. The mediastinum is not widened. Lungs are clear. No infiltrates nor obvious pleural effusions. IMPRESSION: No acute pulmonary findings on this single AP portable view of the chest. Lines and tubes as above. DATA REPOSITORY: RADIATION DOSE DELIVERED:
[2025-02-28] MEDS: Povidone-Iodine Soln. 118 ML BTL (09:38)
[2025-02-28 09:45] LABS: Glucose Negative (Negative)
[2025-02-28 09:48] LABS: Lab Add On Test DONE
[2025-02-28 17:29] LABS: Cryptococcal Antigen CSF Negative (Negative)
[2025-02-28 18:48] LABS: HSV 1 DNA Result Negative (Negative); HSV 2 DNA Result Negative (Negative)
[2025-03-02 11:33] LABS: Specimen Source CEREBROSPINAL FLUID
[2025-03-03 09:37] LABS: Lyme Ab w Rflx to Lyme Confirm Negative (Negative)
[2025-03-03 15:10] LABS: B. miyamotoi PCR Negative (Negative); Babesia divergens/MO-1 Negative (Negative); Ehrlichia muris eauclairensis Negative (Negative)
[2025-03-03 16:53] LABS: Specimen Source CSF
[2025-03-03 22:07] LABS: West Nile Virus PCR, CSF Negative (Negative)
[2025-03-18 12:52] LABS: West Nile Virus Ab, IgG, CSF Negative (Negative); West Nile Virus Ab, IgM, CSF Negative (Negative)
== END 2025-02-28 10:50 | disposition short-term general hospital (02) ==
PROVIDERS: Student in an Organized Health Care Education/Training Program; Emergency Provider Emergency Medicine; PCP Family Medicine
DX: E87.20 Acidosis, unspecified (principal); E87.6 Hypokalemia; G40.901 Epilepsy, unspecified, not intractable, with status epilepticus
CPT/HCPCS: 00123; 31500; 36415; 36556; 71045; 76937; 80053; 82550; 82805; 82945; 82962; 84145; 87040; 87483; 87529; 87798; 89050; 89051; 93005; 96367; 96368; 96375; 99291; 70450; 80320; 80329; 81003; 82140; 83605; 83735; 83880; 84132; 84157; 84443; 84484; 85025; 85610; 85730; 86403; 86618; 86788; 86789; 87070; 87205; 93010; J0133; J0290; J0330; J0692; J1100; J1171; J1953; J2060; J2250; J2704; J3010; J3373; J3475; J3480

== ENCOUNTER 2025-03-17 17:40 | Outpatient (REF) | payer OTHER, SELFPAY ==
--- NOTE | 2025-03-17 15:40 | PAPFT_PTH ---
PATIENT: Jaymie Decker LOC: [facility] U#:[id number] AGE/SX: 60/F ROOM: RE03/17/[address]: Alie Hassan DO : 1965 BED: DIS: 03/17/2025 SPEC #: [id number] RECD: 03/17/25 18:13 STATUS: JENNIFER REQ #: [id number] JAMAL: 03/17/25 15:[address]: Alie Hassan DEPT: [facility] Cytology RECD BY: Judy Lyn ENTERED: 03/17/25 18:14 SP TYPE: PAPFT OTHR DR: Lenore Payne Tissues: 1 - CX/ENDOCX FOR PAP SMEARS Procedures: PAP THIN PREP/[facility] Screening HPV DNA PROBE Comments: [id number] (HPV 16 & 18/45)
== END 2025-03-17 17:41 | disposition home or self-care (01) ==
LOC: LBN 17:40
PROVIDERS: PCP Family Medicine; Visit Provider Obstetrics & Gynecology
DX: Z12.4 Encounter for screening for malignant neoplasm of cervix (principal)
CPT/HCPCS: 88142; 87624